=== PATIENT | male | born 1930 | race Caucasian/White ===

== ENCOUNTER → 2017-01-05 | Day surgery (SDC) | payer OTHER ==
[~2017-01-05] VITALS: Ht 167.6 cm; Wt 72.5 kg
[~2017-01-05] MED LIST: AMPICILLIN-SULBACTAM INJ 3 GM VIAL ONE; DOXA1TAB34 PO; LACTATED RINGER'S 1000 ML INJ 1,000 ML ONE; LIDOCAINE 1%/EPINEPHrine 1:100,000 SOLN 30 ML VIAL ONE; LISI2.5T3 PO; MULTTAB67 PO; PROPOFOL 200 MG/20 ML AMP IV ONE; SIMV80TA PO; SODIUM CHLORIDE 0.9% INJ 100 ML ONE; fentaNYL CITRATE 250 MCG/5 ML AMP ONE
[2017-01-05 08:22] VITALS: BP 201/86; PULSE 69; RESP 16; TEMP 97.9; O2SAT 95
[2017-01-05 08:44] LABS: HEMATOCRIT 40.6 % (39.0-51.0); MEAN CELL VOLUME 88.1 FL (80.0-100.0); MEAN CORPUSCULAR HEMOGLOBIN 29.4 PG (27.0-34.0); MEAN CORPUSCULAR HGB CONC 33.4 % (32.0-36.0); PLATELET COUNT 201 TH/MM3 (150-450); RED BLOOD COUNT 4.61 MIL/MM3 (4.50-5.90); RED CELL DISTRIBUTION WIDTH 13.6 % (11.6-17.2); REVIEW FLAG FINAL; WHITE BLOOD COUNT 5.5 TH/MM3 (4.0-11.0)
[2017-01-05] MEDS: MUPIROCIN 2% OINT 22 GM TUBE ONE ×2 (11:05→11:39)
[2017-01-05 12:23] VITALS: BP 174/72; PULSE 80; RESP 16; TEMP 98.1; O2SAT 98
--- NOTE | 2017-01-06 12:17 | EKG ---
Date Performed: 01/05/2017 Time Performed: 08:45:36 PTAGE: 86 years EKG: Sinus rhythm . Normal ECG PREVIOUS TRACING : 10/05/2012 08.44 DOCTOR: Nehemiah Celis Interpretating Date/Time 01/06/2017 12:15:17
--- NOTE | 2017-01-11 08:49 | MP ---
cc: ANGI DICK M.D. DATE OF SURGERY: 01/05/[address] Angi Dick PREOPERATIVE DIAGNOSIS 1. 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 2. 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 POSTOPERATIVE DIAGNOSIS 1. 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 2. 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 OPERATION PERFORMED 1. Excision of malignant lesion of right ear, 2 cm, CPT code 79767. 2. Complex repair of surgical defect of right ear, CPT code 19368. 3. Excision cutaneous lesion of right neck, 1.2 cm, CPT code 08163. 4. Intermediate repair of cutaneous defect right neck, CPT code 45359. INDICATIONS The indications are documented in the history and physical. DESCRIPTION OF OPERATION The patient was taken to OR #2 and placed in the supine position. Following induction of general anesthesia and intubation using a laryngeal mask apparatus, the area of these two lesions on the right ear and neck were injected with a total of 5 mL of 1% Xylocaine with epinephrine 1:100,000. The skin lesion of the neck was addressed first. This was excised along with an ellipse of approximately 1.5 cm in length and 5 mm in width. This incorporated the cutaneous lesion at a central point. This was carried down in subcutaneous fat. The skin was then undermined a distance of approximately 8 mm in all directions to allow for closure, then closed in layers using 4-0 Vicryl subcutaneous and 5-0 fast-absorbing plain gut in the skin. The ear lesion was then addressed. This was an erosive lesion involving the tragus extending from the tip and along the posterior surface down to the ear canal. This was actually a recurrence of a lesion at this site. At this time the incision was made incorporating the skin of the tragus on the facial side approximately 2.5 cm in length and then extended down into the ear canal incorporating all the area of the visible malignant lesion. This was then removed by cutting through the tragal cartilage and into the underlying fat and soft tissue. The lesion was passed off the field and oriented for histological examination. A few sites of bleeding were cauterized using the needle tip Bovie at 12 moreno. The skin of the face was then undermined for 2 cm to allow for it to extend into the ear canal to cover the defect. This was closed using 4-0 Vicryl in the subcutaneous layer and the skin was closed with interrupted sutures of both 5-0 nylon and 5-0 fast-absorbing plain gut. The wound was then dressed with mupirocin ointment and the procedure was terminated. The patient was reversed from anesthesia and taken to Recovery in good condition. There were no complications. Blood loss was 10 mL. MD JOSE Gómez/BT /8:19 AM /8:40 AM
== END | disposition home or self-care (01) ==
LOC: PHSDC 07:57
PROVIDERS: ATTEND Otolaryngology
DX: C44.212 Basal cell carcinoma of skin of right ear and external auricular canal (principal); C44.41 Basal cell carcinoma of skin of scalp and neck; I10 Essential (primary) hypertension
CPT/HCPCS: 00300; 11622; 11643; 12041; 13152; 85027; 88305; 93005; J0295; J3010; J7120; 36415

== ENCOUNTER 2017-12-31 09:38 | Inpatient (IN) | payer OTHER, MEDICARE ==
[~2017-12-31] VITALS: Ht 167.6 cm; Wt 74.4 kg
[2017-12-31] VITALS (29 sets, daily range): BP systolic 115–179; BP diastolic 52–89; PULSE 37–75; RESP 15–22; TEMP 97.7–97.9; O2SAT 98–100
[~2017-12-31 09:38] MED LIST changes: -AMPICILLIN-SULBACTAM INJ 3 GM VIAL ONE; -LACTATED RINGER'S 1000 ML INJ 1,000 ML ONE; -LIDOCAINE 1%/EPINEPHrine 1:100,000 SOLN 30 ML VIAL ONE; -LISI2.5T3 PO; -PROPOFOL 200 MG/20 ML AMP IV ONE; -SODIUM CHLORIDE 0.9% INJ 100 ML ONE; -fentaNYL CITRATE 250 MCG/5 ML AMP ONE
[2017-12-31] MEDS ORDERED: SIMV20TA PO (09:46)
[2017-12-31] MEDS ORDERED: LISI-519 PO (09:46)
[2017-12-31] MEDS ORDERED: AMLO5TAB2 PO (09:46)
[2017-12-31] MEDS ORDERED: SODIUM CHLORIDE 0.9% FLUSH 10 ML FLUSH IVF PRN (10:00)
[2017-12-31] MEDS ORDERED: SODIUM CHLOR 0.9% 1000 ML INJ 1,000 ML IV ONE (10:00)
--- NOTE | 2017-12-31 10:03 | PD ---
HPI Chief Complaint: Syncope/Near-Syncope Time Seen by Provider: 10:00 Travel History International Travel<30 days: No Contact w/Intl Traveler<30days: No Traveled to known affect area: No History of Present Illness HPI This 87-year-old male is brought by ambulance. He apparently lives alone. He has a female friend that called him this morning and noted that he seemed very weak. She had seen him yesterday afternoon when she took him to a doctor's office. He has a history of a mini stroke in the past. He was found unresponsive by paramedics. His heart rate was in the 40s and he was given atropine with some improvement. There is a friend here with him was says that he was admitted to the [facility] last March with a mini stroke. At that time he was found to have high blood pressure and was put on blood pressure medications PFSH Past Medical History Hx Anticoagulant Therapy: No Arthritis: No Asthma: No Autoimmune Disease: No Heart Rhythm Problems: No Cancer: Yes (BCCA) Cardiovascular Problems: Yes (HTN, CHOL) High Cholesterol: Yes Chemotherapy: No Chest Pain: No Congestive Heart Failure: No COPD: No Cerebrovascular Accident: No Diabetes: No Patient Takes Glucophage: No Diminished Hearing: No Endocrine: No Gastrointestinal Disorders: No GERD: No Genitourinary: Yes (BPH) Headaches: No Hepatitis: No Hiatal Hernia: No Hypertension: Yes Immune Disorder: No Kidney Stones: No Medical other: No Musculoskeletal: No Neurologic: No Psychiatric: No Reproductive: No Respiratory: No Migraines: No Radiation Therapy: No Renal Failure: No Seizures: No Sleep Apnea: No Thyroid Disease: No Ulcer: No Tetanus Vaccination: Unknown Past Surgical History Abdominal Surgery: No AICD: No Arteriovenous Shunt: No Cardiac Surgery: No Ear Surgery: No Endocrine Surgery: No Eye Surgery: No Genitourinary Surgery: No Gynecologic Surgery: No Insulin Pump: No Joint Replacement: No Neurologic Surgery: No Oral Surgery: No Pacemaker: No Thoracic Surgery: No Social History Alcohol Use: No Tobacco Use: No Substance Use: No Allergies-Medications (Allergen,Severity, Reaction): Coded Allergies: No Known Allergies (Unverified Allergy, Unknown, 12/31/17) Reported Meds & Prescriptions Reported Meds & Active Scripts Active Reported Amlodipine (Amlodipine Besylate) 5 Mg Tab 5 Mg PO DAILY Lisinopril 5 Mg Tab 5 Mg PO DAILY Simvastatin 20 Mg Tab 20 Mg PO DAILY Multiple Vitamin 1 Tab 1 Tab PO DAILY Doxazosin (Doxazosin Mesylate) 4 Mg Tab 4 Mg PO HS Review of Systems ROS Limitations: Unresponsive, Poor Historian Physical Exam Narrative GENERAL: Well-developed male. He is unresponsive on my examination. He has snoring respirations SKIN: Focused skin assessment warm/dry. HEAD: Atraumatic. Normocephalic. EYES: Pupils pinpoint ENT: No nasal bleeding or discharge. Mucous membranes pink and moist. NECK: Trachea midline. No JVD. CARDIOVASCULAR: Regular rate and rhythm. No murmur appreciated. RESPIRATORY: No accessory muscle use. Clear to auscultation. Breath sounds equal bilaterally. GASTROINTESTINAL: Abdomen soft, non-tender, nondistended. Hepatic and splenic margins not palpable. MUSCULOSKELETAL: No obvious deformities. No clubbing. No cyanosis. No edema. Neuro patient is unresponsive. He does not answer any questions. He grimaces in response to painful stimuli Babinski's upgoing bilaterally Data Data Last Documented VS Vital Signs Date Time Temp Pulse Resp B/P (MAP) Pulse Ox O2 Delivery O2 Flow Rate FiO2 12/31/17 11:56 41 16 145/67 (93) 100 Ventilator 7.00 50 12/31/17 09:47 97.7 Orders Orders Electrocardiogram (12/31/17 10:00) Prothrombin Time / Inr (Pt) (12/31/17 10:00) Act Partial Throm Time (Ptt) (12/31/17 10:00) Complete Blood Count With Diff (12/31/17 10:00) Comprehensive Metabolic Panel (12/31/17 10:00) Drug Screen, Random Urine (12/31/17 10:00) Troponin I (12/31/17 10:00) Urinalysis - C+S If Indicated (12/31/17 10:00) Ct Brain W/O Iv Contrast(Rout) (12/31/17 10:00) Chest, Single Ap (12/31/17 10:00) Ecg Monitoring (12/31/17 10:00) Iv Access Insert/Monitor (12/31/17 10:00) Oximetry (12/31/17 10:00) Sodium Chloride 0.9% Flush (Ns Flush) (12/31/17 10:00) Sodium Chlor 0.9% 1000 Ml Inj (Ns 1000 M (12/31/17 10:00) Arterial Blood Gas (Abg) (12/31/17 10:10) Etomidate Inj (Amidate Inj) (12/31/17 10:26) Succinylcholine Inj (Quelicin Inj) (12/31/17 10:26) Propofol 1000 Mg/100 Ml Inj (Diprivan 10 (12/31/17 10:45) Urinary Catheter Insert/Apply (12/31/17 10:54) Urine Culture (12/31/17 10:43) Restraints Non-Violent REJI.Q3H (12/31/17 11:02) Sputum Culture And Gram Stain (12/31/17 11:40) Mri Brain W&W/O Contrast (12/31/17 ) Eeg Study (12/31/17 ) ^ Orogastric Tube (12/31/17 11:57) Admit Order (Ed Use Only) (12/31/17 12:10) Labs Laboratory Tests Test 12/31/17 10:30 12/31/17 10:43 12/31/17 11:18 White Blood Count 6.5 TH/MM3 Red Blood Count 4.24 MIL/MM3 Hemoglobin 12.8 GM/DL Hematocrit 38.0 % Mean Corpuscular Volume 89.6 FL Mean Corpuscular Hemoglobin 30.2 PG Mean Corpuscular Hemoglobin Concent 33.7 % Red Cell Distribution Width 13.9 % Platelet Count 188 TH/MM3 Mean Platelet Volume 8.7 FL Neutrophils (%) (Auto) 67.6 % Lymphocytes (%) (Auto) 19.5 % Monocytes (%) (Auto) 9.1 % Eosinophils (%) (Auto) 3.3 % Basophils (%) (Auto) 0.5 % Neutrophils # (Auto) 4.4 TH/MM3 Lymphocytes # (Auto) 1.3 TH/MM3 Monocytes # (Auto) 0.6 TH/MM3 Eosinophils # (Auto) 0.2 TH/MM3 Basophils # (Auto) 0.0 TH/MM3 CBC Comment DIFF FINAL Differential Comment Prothrombin Time 10.7 SEC Prothromb Time International Ratio 1.1 RATIO Activated Partial Thromboplast Time 25.5 SEC Blood Urea Nitrogen 22 MG/DL Creatinine 1.20 MG/DL Random Glucose 115 MG/DL Total Protein 6.6 GM/DL Albumin 3.2 GM/DL Calcium Level 8.0 MG/DL Alkaline Phosphatase 60 U/L Aspartate Amino Transf (AST/SGOT) 22 U/L Alanine Aminotransferase (ALT/SGPT) 22 U/L Total Bilirubin 0.5 MG/DL Sodium Level 142 MEQ/L Potassium Level 4.8 MEQ/L Chloride Level 110 MEQ/L Carbon Dioxide Level 25.9 MEQ/L Anion Gap 6 MEQ/L Estimat Glomerular Filtration Rate 57 ML/MIN Troponin I LESS THAN 0.02 NG/ML Urine Collection Type CATH Urine Color YELLOW Urine Turbidity SL CLOUDY Urine pH 6.0 Urine Specific [place] 1.020 Urine Protein NEG mg/dL Urine Glucose (UA) NEG mg/dL Urine Ketones NEG mg/dL Urine Occult Blood LARGE Urine Nitrite NEG Urine Bilirubin NEG Urine Urobilinogen 0.2 MG/DL Urine Leukocyte Esterase NEG Urine RBC INNUM /hpf Urine WBC 9-14 /hpf Urine Squamous Epithelial Cells 0-5 /hpf Urine Renal Epithelial Cells > 8 /hpf Microscopic Urinalysis Comment CATH-CULTURE IND Urine Collection Time 10:43 Urine Opiates Screen NEG Urine Barbiturates Screen NEG Urine Amphetamines Screen NEG Urine Benzodiazepines Screen NEG Urine Cocaine Screen NEG Urine Cannabinoids Screen NEG Blood Gas Puncture Site RT RADIAL Blood Gas Patient Temperature 98.6 Blood Gas HCO3 25 mmol/L Blood Gas Base Excess 0.6 mmol/L Blood Gas Oxygen Saturation 97 % Arterial Blood pH 7.43 Arterial Blood Partial Pressure CO2 38 mmHG Arterial Blood Partial Pressure O2 136 mmHG Arterial Blood Oxygen Content 16.9 Vol % Arterial Blood Carboxyhemoglobin 1.4 % Arterial Blood Methemoglobin 1.4 % Blood Gas Hemoglobin 12.3 G/DL Oxygen Delivery Device VENTILATOR Blood Gas Ventilator Setting A/C 500/16/+5 Blood Gas Inspired Oxygen 40 % [facility] Medical Decision Making Medical Screen Exam Complete: Yes Emergency Medical Condition: Yes Medical Record Reviewed: Yes Differential Diagnosis Differential includes overdose, CVA, hypoglycemia Narrative Course Patient has been unresponsive and does not respond to painful stimuli. It was felt he needed airway protection so endotracheal intubation has been performed. He was given etomidate and succinylcholine for sedation and tube was placed. After tube placement there are good bilateral breath sounds. Chest x-ray shows good position of the tube. CT scan of the brain does not reveal an etiology for his home. Drug screen is negative. He will be admitted to the intensive care unit for further evaluation. Procedures Procedure Narrative Patient was given 20 mg of etomidate choline intravenously. He was well sedated. He is direct laryngoscopy and an endotracheal tube was inserted into the trachea. TUBE position was confirmed by CO2 detector, good bilateral breath sounds and chest x-ray Diagnosis Primary Impression: Altered mental status Admitting Information Admitting Physician Requests: Admit Forest Fajardo MD Dec 31, 2017 10:03
[2017-12-31] MEDS ORDERED: ETOMIDATE 40 MG/20 ML VIAL ONE (10:26)
[2017-12-31] MEDS ORDERED: SUCCINYLCHOLINE CHLORIDE 200 MG/10 ML VIAL ONE (10:26)
[2017-12-31] MEDS: PROPOFOL 1000 MG/100 ML INJ 100 ML IV PRN (10:48)
[2017-12-31 10:51] LABS: AUTOMATED NEUTROPHIL # 4.4 TH/MM3 (1.8-7.7); BASOPHIL % 0.5 % (0.0-2.0); EOSINOPHIL # 0.2 TH/MM3 (0-0.4); EOSINOPHIL % 3.3 % (0.0-4.0); HEMOGLOBIN 12.8 GM/DL (13.0-17.0); LYMPH % 19.5 % (9.0-44.0); LYMPHOCYTE # 1.3 TH/MM3 (1.0-4.8); MEAN CELL VOLUME 89.6 FL (80.0-100.0); MEAN CORPUSCULAR HEMOGLOBIN 30.2 PG (27.0-34.0); MEAN CORPUSCULAR HGB CONC 33.7 % (32.0-36.0); MEAN PLATELET VOLUME 8.7 FL (7.0-11.0); MONO % 9.1 % (0.0-8.0); MONOCYTE # 0.6 TH/MM3 (0-0.9); NEUT % 67.6 % (16.0-70.0); PLATELET COUNT 188 TH/MM3 (150-450); RED BLOOD COUNT 4.24 MIL/MM3 (4.50-5.90); RED CELL DISTRIBUTION WIDTH 13.9 % (11.6-17.2); WHITE BLOOD COUNT 6.5 TH/MM3 (4.0-11.0)
[2017-12-31 10:52] LABS: BILIRUBIN, URINE NEG (NEG); BLOOD, URINE LARGE (NEG); GLUCOSE,URINE NEG (NEG); KETONE, URINE NEG (NEG); NITRITE,URINE NEG (NEG); URINE COLOR YELLOW (YELLW/STRAW); URINE LEUKOCYTE ESTERASE NEG (NEG)
--- NOTE | 2017-12-31 10:56 | RADRPT ---
EXAM DATE/TIME: 12/31/2017 10:14 [facility] COMPARISON: No previous studies available for comparison. INDICATIONS : Altered mental status. Weakness. Evaluate for cerebrovascular accident. RADIATION DOSE: 61.92 CTDIvol (mGy) MEDICAL HISTORY : Cerebrovascular disease. Hypertension. SURGICAL HISTORY : None. ENCOUNTER: Initial ACUITY: 1 day PAIN SCALE: Non-responsive LOCATION: cranial TECHNIQUE: Multiple contiguous axial images were obtained of the head. Using automated exposure control and adj ustment of the mA and/or kV according to patient size, radiation dose was kept as low as reasonably a chievable to obtain optimal diagnostic quality images. DICOM format image data is available electro nically for review and comparison. FINDINGS: CEREBRUM: The ventricles are normal for age. No evidence of midline shift, mass lesion, hemorrhage or acute in farction. No extra-axial fluid collections are seen. POSTERIOR FOSSA: The cerebellum and brainstem are intact. The 4th ventricle is midline. The cerebellopontine angle i s unremarkable. EXTRACRANIAL: The visualized portion of the orbits is intact. Mild mucosal thickening in the visualized portion of the dependent maxillary sinuses. SKULL: The calvaria is intact. No evidence of skull fracture. CONCLUSION: 1. Age-appropriate atrophy. No acute findings in the brain. 2. Mild bilateral maxillary sinus disease. Pablo Mcclure MD on December 31, 2017 at 10:53 Board Certified Radiologist. This report was verified electronically.
[2017-12-31 11:00] LABS: RBC, URINE INNUM /hpf (0-3)
[2017-12-31 11:01] LABS: RENAL EPITHELIAL CELLS > 8 /hpf; SQUAMOUS EPITHELIAL CELL URINE 0-5 /hpf (0-5)
[2017-12-31 11:04] LABS: INTERNATIONAL NORMALIZED RATIO 1.1 RATIO; PROTHROMBIN TIME - PATIENT 10.7 SEC (9.8-11.6)
[2017-12-31 11:08] LABS: CHLORIDE 110 MEQ/L (98-107); SODIUM (NA) 142 MEQ/L (136-145)
[2017-12-31 11:12] LABS: ALBUMIN 3.2 GM/DL (3.4-5.0); BICARBONATE 25.9 MEQ/L (21.0-32.0); BLOOD UREA NITROGEN 22 MG/DL (7-18); GLUCOSE,RANDOM 115 MG/DL (74-106)
[2017-12-31 11:14] LABS: ALT (GPT) 22 U/L (12-78)
[2017-12-31 11:15] LABS: AST (GOT) 22 U/L (15-37); GLOMERULAR FILTRATION RATE 57 ML/MIN (>89)
[2017-12-31 11:16] LABS: TOTAL BILIRUBIN ADULT 0.5 MG/DL (0.2-1.0); TOTAL PROTEIN 6.6 GM/DL (6.4-8.2)
[2017-12-31 11:17] LABS: ALKALINE PHOSPHATASE 60 U/L (45-117)
[2017-12-31 11:20] LABS: TROPONIN I LESS THAN 0.02 NG/ML (0.02-0.05)
--- NOTE | 2017-12-31 11:33 | RADRPT ---
EXAM DATE/TIME: 12/31/2017 11:10 [facility] COMPARISON: No previous studies available for comparison. INDICATIONS : Post intubation. MEDICAL HISTORY : Cerebrovascular disease. Hypertension. SURGICAL HISTORY : None. ENCOUNTER: Initial ACUITY: 1 day PAIN SCORE: Non-responsive. LOCATION: chest FINDINGS: Endotracheal tube tip is 2.8 cm above the naima. The lungs are symmetrically aerated and clear. Jeovanny th hemidiaphragms are well delineated. The heart is normal size. CONCLUSION: ET tube in good position. The lungs are clear. Pablo Mcclure MD on December 31, 2017 at 11:30 Board Certified Radiologist. This report was verified electronically.
[2017-12-31] MEDS ORDERED: SODIUM CHLOR 0.9% 1000 ML INJ 1,000 ML IV SCH (12:15)
[2017-12-31] MEDS ORDERED: MISCELLANEOUS NURSING INFORMATION XX SCH (12:15)
[2017-12-31] MEDS ORDERED: MAGNESIUM HYDROXIDE SUSP 30 ML CUP PO PRN (12:15)
[2017-12-31] MEDS ORDERED: ACETAMINOPHEN 325 MG TAB PO PRN (12:15)
[2017-12-31] MEDS ORDERED: ONDANSETRON HCL 4 MG/2 ML VIAL IV PUSH PRN (12:15)
[2017-12-31] MEDS ORDERED: RESP: ALBUTEROL 2.5 MG/IPRATROPIUM 0.5 MG NEB (PRN) INH (12:15)
[2017-12-31] MEDS ORDERED: CHLORHEXIDINE GLUCONATE 2 % 1 PACK (2 CLOTHS) TOP PRN (12:15)
[2017-12-31] MEDS ORDERED: LACTULOSE SYRUP 20 GM/30 ML CUP PO PRN (12:15)
[2017-12-31] MEDS ORDERED: SENNOSIDES 8.6 MG TAB PO PRN (12:15)
[2017-12-31] MEDS ORDERED: BISACODYL 10 MG SUPP RECTAL PRN (12:15)
[2017-12-31] MEDS ORDERED: hydrALAZINE HCL 20 MG/ML VIAL IV PUSH PRN (12:30)
[2017-12-31] MEDS ORDERED: ATROPINE SULFATE 1 MG/10 ML SYRINGE IV PUSH PRN (12:30)
[2017-12-31] MEDS ORDERED: PROPOFOL 1000 MG/100 ML INJ 100 ML IV PRN (13:00)
[2017-12-31] MEDS: ENOXAPARIN SODIUM 40 MG/0.4 ML SYRINGE SQ SCH (13:33)
[2017-12-31] MEDS: SODIUM CHLOR 0.9% 1000 ML INJ 1,000 ML IV SCH (13:33)
[2017-12-31] MEDS: cefTRIAXone INJ 1,000 MG in SODIUM CHLORIDE 0.9% INJ 100 ML IV SCH (13:34)
--- NOTE | 2017-12-31 13:46 | MB ---
cc: Mejia Arteaga MD DATE: 12/31/2017 HISTORY OF PRESENT ILLNESS: An 87-year-old man with a history of hypertension, hypercholesterolemia, basal cell skin cancer. No melanoma. He had what his shipping clerk says was a possible mini stroke or it sounds like he actually passed out briefly in February of last year. He sees Dr. Johnston. He recently was put on aspirin just a few days ago. He takes some blood pressure medications. Otherwise, evidently, has been very healthy. He was a little depressed yesterday because one of his friends was going to be taken off of a ventilator, and he seemed to be doing fine about 4 p.m. when his shipping clerk talked to him on the phone. Then, this morning, she called and he said he felt a little dizzy. She went over and he was lying on the bed, could not arouse him, called 911. The manager labor delivery came. He evidently said a few words to them, but was unresponsive here and wound up getting intubated. REVIEW OF SYSTEMS: She says there has been no recent illness. He was doing fine. No history of diabetes, PR, stent, angioplasty, AFib, Coumadin, renal, hepatic or pulmonary disease, thyroid disease, lupus, ulcer, cancer or seizure. SOCIAL HISTORY: Nonsmoker, occasional drinker, lives alone. FAMILY HISTORY: Negative for cancer, seizure, stroke. Positive for PR in his son. MEDICATIONS: He is just on amlodipine, lisinopril, and a baby aspirin for the last several days. Also, simvastatin, a multivitamin, doxazosin. ALLERGIES: NO KNOWN DRUG ALLERGIES. PHYSICAL EXAMINATION: VITAL SIGNS: His heart rate has been in the 30s-40s. He has seen a boring mill operator for metal in the past. His friend is not sure who. Afebrile, 41, 16, 115/59, initially 167/84. NECK: There were no carotid bruits. HEART: Regular rhythm. I did not detect a murmur. NEUROLOGIC: The pupils are equal. He is sedated on Diprivan. He is intubated. He has got bilateral upgoing toes. The DTRs are absent throughout. He seems to move that left leg a little bit spontaneously, more so than the right one. Doll's eyes appear normal. No ankle clonus. LABORATORY DATA: CBC is normal. Urine drug screen normal, except for 9-14 white cells. Coags normal. Basic metabolic profile was essentially normal. Glucose 115. LFTs, troponin normal. Albumin 3.2. CAT scan of the brain negative. Chest x-ray, lungs are clear. He is in sinus aidan on the tele. ABG after intubation 7.43, 38, 136. IMPRESSION: Change in mental status. With the bilateral upgoing toes, I would worry about a brainstem or infarct or showering of infarcts to both hemispheres. We will check an MRI of the brain and EEG. Some additional blood work. We will know more after that. There is some slight asymmetry where he is moving the left leg a little bit better than the right, but both the toes are upgoing and quite a bit so, which is concerning. MD CHRISS Grant/NAN , 01:28 PM , 01:45 PM
[2017-12-31] MEDS ORDERED: GADODIAMIDE PF 287 MG/ML 5 ML VIAL (for RAD MRI) IVCONTRAST ONE (15:09)
--- NOTE | 2017-12-31 15:51 | RADRPT ---
EXAM DATE/TIME: 12/31/2017 14:55 [facility] COMPARISON: No previous studies available for comparison. INDICATIONS : CVA. MEDICAL HISTORY : Hypertension. SURGICAL HISTORY : Skin cancer removed from nose. ENCOUNTER: Initial ACUITY: 1 day PAIN SCORE: 10/10 LOCATION: Bilateral cranial Please note a normal MRA of the brain does not entirely exclude the possibility of a small aneurysm, nor the possibility of distal intracranial vessel disease. TECHNIQUE: 3D time of flight MRA was performed. Source images, multiplanar STS MIP, and 3D volume MIP reconstru ctions were reviewed. FINDINGS: There is excellent visualization of the major intracranial arteries out to the second-order branch ve ssels. There is no evidence for aneurysm, vessel truncation or stenosis, and no evidence for vascula r malformation. The right A1 segment is narrower than the left. Flow is seen in the anterior commun icating artery. No flow seen in the PCOM. CONCLUSION: No evidence of vessel truncation or aneurysm. Pablo Mcclure MD on December 31, 2017 at 15:47 Board Certified Radiologist. This report was verified electronically.
--- NOTE | 2017-12-31 16:01 | RADRPT ---
EXAM DATE/TIME: 12/31/2017 14:55 [facility] COMPARISON: CT BRAIN W/O CONTRAST, December 31, 2017, 10:14. CHEST SINGLE AP, December 31, 2017, 11:10. INDICATIONS : CVA. CONTRAST: 14 cc Omniscan (gadodiamide) IV MEDICAL HISTORY : Hypertension. SURGICAL HISTORY : Skin cancer sx. ENCOUNTER: Initial ACUITY: 1 day PAIN SCORE: 10/10 LOCATION: Bilateral head TECHNIQUE: Multiplanar, multisequence MRI of the brain was performed both prior to and following the administrat ion of paramagnetic contrast. FINDINGS: CEREBRUM: The ventricles and sulci are normal for age. There are a few small scattered areas of T2 prolongatio n in the supratentorial white matter in the left posterior parietal region without associated T1 abno rmality seen without effusion. In the bilateral medial thalamus, there is some mild restricted diffu wing which is confirmed on the ADC map parametric images suggesting possible early infarction. No ev idence of acute blood products. There is a small lacunar infarct measuring 1 x 3 mm in the medial le ft thalamus. The pituitary is normal in appearance. POSTERIOR FOSSA: The cerebellum and brainstem are intact. The 4th ventricle is midline. The cerebellopontine angle is unremarkable. The cerebellar tonsils are normal in position. EXTRACRANIAL: The visualized portions of the orbits and paranasal sinuses are unremarkable. POST-CONTRAST: There is a solitary mildly prominent vessel coursing through the right frontal white matter to the an gle of the frontal horn of the suggesting possible venous angioma. No surrounding edema. No associa lencho parenchymal or dural enhancement. No evidence of blood-brain barrier breakdown. CONCLUSION: 1. Some very minimal restricted diffusion symmetric in the bilateral medial thalami. This may repres ent early infarction. Recommend serial imaging to evaluate for evolution. 2. Tiny lacunar infarct in the medial left thalamus. 3. 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 The Pablo Mcclure MD on December 31, 2017 at 15:53 Board Certified Radiologist. This report was verified electronically.
--- NOTE | 2017-12-31 16:02 | EKG ---
Date Performed: 12/31/2017 Time Performed: 10:11:34 PTAGE: 87 years EKG: SINUS BRADYCARDIA WITH FIRST DEGREE AV BLOCK ABNORMAL ECG PREVIOUS TRACING : 01/05/2017 08.45 No significant change from previous tracing noted. DOCTOR: Devin Dover Interpretating Date/Time 12/31/2017 16:02:07
--- NOTE | 2017-12-31 16:56 | ECHRPT ---
Indication: CONCLUSIONS The left ventricular systolic function is normal with an estimated ejection fraction in the range of 55-60%. Normal left ventricular size. Wall thickness is measured at the upper limits of normal. No regional wall motion abnormalities are present. Diffuse calcification of the aortic valve. Trace aortic valve regurgitation. There is trace tricuspid valve regurgitation. The estimated pulmonary arterial pressure is 29.5 mmHg. BP: 126 / 61 HR: 82 Rhythm: Sinus MEASUREMENTS (Male / Female) Normal Values Technical Quality:Poor 2D ECHO LV Diastolic Diameter PLAX 4.0 cm 4.2 - 5.9 / 3.9 - 5.3 cm LV Systolic Diameter PLAX 3.0 cm IVS Diastolic Thickness 1.2 cm 0.6 - 1.0 / 0.6 - 0.9 cm LVPW Diastolic Thickness 1.2 cm 0.6 - 1.0 / 0.6 - 0.9 cm LV Relative Wall Thickness 0.6 LVOT Diameter 1.5 cm LA Systolic Diameter LX 3.2 cm 3.0 - 4.0 / 2.7 - 3.8 cm LV Ejection Fraction MOD 4C 61.8 % LV Ejection Fraction 4C AL 63.1 % M-MODE Aortic Root Diameter MM 2.9 cm AV Cusp Separation MM 1.1 cm DOPPLER AV Peak Velocity 215.0 cm/s AV Peak Gradient 18.5 mmHg AV Mean Gradient 9.0 mmHg AV Velocity Time Integral 52.0 cm AI Peak Velocity 357.0 cm/s AI Peak Gradient 51.0 mmHg AI Pressure Half Time 1372.0 ms LVOT Peak Velocity 118.0 cm/s LVOT Peak Gradient 5.6 mmHg LVOT Velocity Time Integral 31.6 cm AV Area Cont Eq vti 1.1 cm AV Area Cont Eq pk 1.0 cm MV Area PHT 2.8 cm Mitral E Point Velocity 83.9 cm/s Mitral A Point Velocity 97.7 cm/s Mitral E to A Ratio 0.9 LV E' Lateral Velocity 8.9 cm/s Mitral E to LV E' Lateral Ratio 9.5 LV E' Septal Velocity 6.2 cm/s Mitral E to LV E' Septal Ratio 13.4 TR Peak Velocity 221.0 cm/s TR Peak Gradient 19.5 mmHg Right Atrial Pressure 10.0 mmHg Pulmonary Artery Systolic Pressu 29.5 mmHg Right Ventricular Systolic Press 29.5 mmHg PV Peak Velocity 88.2 cm/s PV Peak Gradient 3.1 mmHg FINDINGS LEFT VENTRICLE The left ventricular systolic function is normal with an estimated ejection fraction in the range of 55-60%. Normal left ventricular size. Wall thickness is measured at the upper limits of normal. No regional wall motion abnormalities are present. RIGHT VENTRICLE Normal right ventricular size and systolic function. LEFT ATRIUM The left atrial size is normal. RIGHT ATRIUM The right atrial size is normal. ATRIAL SEPTUM Normal atrial septal thickness without atrial level shunting by limited color doppler interrogation. AORTA The aortic root and proximal ascending aorta are normal in size on limited imaging. MITRAL VALVE Structurally normal mitral valve. No mitral valve stenosis or regurgitation. AORTIC VALVE Trileaflet aortic valve. Diffuse calcification of the aortic valve. Trace aortic valve regurgitation. TRICUSPID VALVE Structurally normal tricuspid valve. There is trace tricuspid valve regurgitation. The estimated pulmonary arterial pressure is 29.5 mmHg. PULMONARY VALVE No pulmonary valve regurgitation or stenosis. VESSELS The inferior vena cava is normal in size. PERICARDIUM No pericardial effusion. Nehemiah Celis MD, FACC (Electronically Signed) Final Date:31 December 2017 16:55
--- NOTE | 2017-12-31 18:28 | HHI.HP ---
[facility] Service Critical Care Medicine Primary Care Physician Brian Spence MD Admission Diagnosis ALTERED LEVEL OF CONSCIOUSNESS Diagnosis: (1) Ischemic cerebrovascular accident (CVA) Diagnosis: Principal (2) Bradycardia Diagnosis: Principal (3) Encephalopathy acute Diagnosis: Principal Chief Complaint: Complained of lightheadedness and some dizziness prior to becoming obtunded. Travel History International Travel<30 Days: No Contact w/Intl Traveler <30 Da: No Traveled to Known Affected Are: No History of Present Illness This elderly gentleman presented to the emergency department by ambulance when he became lightheaded at his home. A social work lecturer asked him to lay down on his bed when she was on the telephone with him. He was quite somnolent when the ambulance arrived. He appeared to intermittently be able to respond to commands but eventually deteriorated to the point where he required intubation for airway protection. He had a small stroke about a year ago and he does see a neurologist. He is on antiplatelet therapy in the form of aspirin. The sustained sinus bradycardia in the 40s apparently is a long-term feature of his vital signs and he has not been plagued by hypotensive episodes. On arrival he was moderately hypertensive. CAT scan obtained of the head in the emergency department was normal. MRI of the brain demonstrates no acute occlusions. Review of Systems ROS By history no chest pain or shortness of breath. He did expressed to his social work lecturer on the phone that he had lightheadedness and some dizziness. There was no headache. No seizures. Past Family Social History Allergies: Coded Allergies: No Known Allergies (Unverified Allergy, Unknown, 12/31/17) Past Medical History Past Medical History Hx Anticoagulant Therapy: No Cancer: Yes (BCCA) Cardiovascular Problems: Yes (HTN, CHOL) High Cholesterol: Yes GERD: No Genitourinary: Yes (BPH) Hypertension: Yes Migraines: No Tetanus Vaccination: Unknown Past Surgical History None Social History Alcohol Use: No Tobacco Use: No Substance Use: No Allergies-Medications Allergies-Medications (Allergen,Severity, Reaction): Coded Allergies: No Known Allergies (Unverified Allergy, Unknown, 12/31/17) Reported Meds & Prescriptions Reported Meds & Active Scripts Active Reported Amlodipine (Amlodipine Besylate) 5 Mg Tab 5 Mg PO DAILY Lisinopril 5 Mg Tab 5 Mg PO DAILY Simvastatin 20 Mg Tab 20 Mg PO DAILY Multiple Vitamin 1 Tab 1 Tab PO DAILY Doxazosin (Doxazosin Mesylate) 4 Mg Tab 4 Mg PO HS Physical Exam Vital Signs Vital Signs Date Time Temp Pulse Resp B/P (MAP) Pulse Ox O2 Delivery O2 Flow Rate FiO2 12/31/17 16:05 100 35 12/31/17 14:15 100 100 12/31/17 13:50 43 16 126/61 (82) 100 Ventilator 2.00 12/31/17 13:30 37 16 144/73 (96) 100 Ventilator 2.00 40 12/31/17 13:26 100 35 12/31/17 13:01 Ventilator 2.00 40 12/31/17 13:01 38 16 115/59 (77) 100 Ventilator 2.00 40 12/31/17 12:36 40 16 117/58 (77) 100 Ventilator 2.00 40 12/31/17 12:14 42 16 120/64 (82) 100 Ventilator 2.00 40 12/31/17 11:56 41 16 145/67 (93) 100 Ventilator 2.00 40 12/31/17 11:40 42 16 123/62 (82) 99 2.00 40 12/31/17 11:23 44 16 179/89 (119) 100 Ventilator 2.00 40 12/31/17 11:02 44 16 151/65 (93) 99 Ventilator 2.00 40 12/31/17 11:02 Ventilator 12/31/17 10:38 99 40 12/31/17 10:32 40 12/31/17 10:07 16 98 Room Air 12/31/17 09:50 16 98 Room Air 12/31/17 09:47 97.7 75 16 167/84 (111) 98 Physical Exam General: Intubated and mildly sedated for vent synchrony Head: Normal and atraumatic Neck: Some chronic stiffness orally intubated. Lungs: Clear bilaterally without adventitious sounds good bilateral air movement Heart: Bradycardic rhythm at 48, normal S1-S2, no murmur or rub, no JVD Abdomen soft nondistended nontender no guarding Extremities: Warm, well-perfused. There are minor chronic abrasions with healing skin on his left carbajal. Neuro: Pupils 3 mm and react to light. Withdraws both legs to stimulation. Deep tendon reflexes patellar are 2+ bilaterally Achilles 2+ bilaterally toes appear neutral to plantar stimulation great toe goes up then all toes go down bilaterally. He appears to move both arms to moderate stimulation. Unable to check cranial nerves. Laboratory Laboratory Tests Test 12/31/17 10:30 12/31/17 10:43 12/31/17 11:18 12/31/17 13:30 White Blood Count 6.5 Red Blood Count 4.24 Hemoglobin 12.8 Hematocrit 38.0 Mean Corpuscular Volume 89.6 Mean Corpuscular Hemoglobin 30.2 Mean Corpuscular Hemoglobin Concent 33.7 Red Cell Distribution Width 13.9 Platelet Count 188 Mean Platelet Volume 8.7 Neutrophils (%) (Auto) 67.6 Lymphocytes (%) (Auto) 19.5 Monocytes (%) (Auto) 9.1 Eosinophils (%) (Auto) 3.3 Basophils (%) (Auto) 0.5 Neutrophils # (Auto) 4.4 Lymphocytes # (Auto) 1.3 Monocytes # (Auto) 0.6 Eosinophils # (Auto) 0.2 Basophils # (Auto) 0.0 CBC Comment DIFF FINAL Differential Comment Erythrocyte Sedimentation Rate 4 Prothrombin Time 10.7 Prothromb Time International Ratio 1.1 Activated Partial Thromboplast Time 25.5 Blood Urea Nitrogen 22 Creatinine 1.20 Random Glucose 115 Total Protein 6.6 Albumin 3.2 Calcium Level 8.0 Alkaline Phosphatase 60 Aspartate Amino Transf (AST/SGOT) 22 Alanine Aminotransferase (ALT/SGPT) 22 Total Bilirubin 0.5 Sodium Level 142 Potassium Level 4.8 Chloride Level 110 Carbon Dioxide Level 25.9 Anion Gap 6 Estimat Glomerular Filtration Rate 57 Troponin I LESS THAN 0.02 Urine Collection Type CATH Urine Color YELLOW Urine Turbidity SL CLOUDY Urine pH 6.0 Urine Specific King 1.020 Urine Protein NEG Urine Glucose (UA) NEG Urine Ketones NEG Urine Occult Blood LARGE Urine Nitrite NEG Urine Bilirubin NEG Urine Urobilinogen 0.2 Urine Leukocyte Esterase NEG Urine RBC INNUM Urine WBC 9-14 Urine Squamous Epithelial Cells 0-5 Urine Renal Epithelial Cells > 8 Microscopic Urinalysis Comment CATH-CULTURE IND Urine Collection Time 10:43 Urine Opiates Screen NEG Urine Barbiturates Screen NEG Urine Amphetamines Screen NEG Urine Benzodiazepines Screen NEG Urine Cocaine Screen NEG Urine Cannabinoids Screen NEG Blood Gas Puncture Site RT RADIAL Blood Gas Patient Temperature 98.6 Blood Gas HCO3 25 Blood Gas Base Excess 0.6 Blood Gas Oxygen Saturation 97 Arterial Blood pH 7.43 Arterial Blood Partial Pressure CO2 38 Arterial Blood Partial Pressure O2 136 Arterial Blood Oxygen Content 16.9 Arterial Blood Carboxyhemoglobin 1.4 Arterial Blood Methemoglobin 1.4 Blood Gas Hemoglobin 12.3 Oxygen Delivery Device VENTILATOR Blood Gas Ventilator Setting A/C 500/16/+5 Blood Gas Inspired Oxygen 40 Ammonia 31 Test 12/31/17 13:53 Thyroid Stimulating Hormone 3rd Gen 2.360 Date/Time Source Procedure Growth Status 12/31/17 11:38 Sputum Oral Tracheal Aspirate Gram Stain Pending Received 12/31/17 11:38 Sputum Oral Tracheal Aspirate Sputum Culture Pending Received 12/31/17 10:43 Urine Catheterized Urine Urine Culture Pending Received Result Diagram: 12/31/17 1030 12/31/17 1030 Caprini VTE Risk Assessment Caprini VTE Risk Assessment: Mod/High Risk (score >= 2) Caprini Risk Assessment Model Point Value = 1 Point Value = 2 Point Value = 3 Point Value = 5 Age 41-60 Minor surgery BMI > 25 kg/m2 Swollen legs Varicose veins or History of unexplained or recurrent spontaneous Oral contraceptives or hormone replacement Sepsis (< 1 month) Serious lung disease, including pneumonia (< 1 month) Abnormal pulmonary function Acute myocardial infarction Congestive heart failure (< 1 month) History of inflammatory bowel disease Medical patient at bed rest Age 61-74 Arthroscopic surgery Major open surgery (> 45 min) Laparoscopic surgery (> 45 min) Malignancy Confined to bed (> 72 hours) Immobilizing plaster cast Central venous access Age >= 75 History of VTE Family history of VTE Factor V Leiden Prothrombin [id number] Lupus anticoagulant Anticardiolipin antibodies Elevated serum homocysteine Heparin-induced thrombocytopenia Other congenital or acquired thrombophilia Stroke (< 1 month) Elective arthroplasty Hip, pelvis, or leg fracture Acute spinal cord injury (< 1 month) Prophylaxis Regimen Total Risk Factor Score Risk Level Prophylaxis Regimen 0-1 Low Early ambulation 2 Moderate Order ONE of the following: *Sequential Compression Device (SCD) *Heparin 5000 units SQ BID 3-4 Higher Order ONE of the following medications: *Heparin 5000 units SQ TID *Enoxaparin/Lovenox 40 mg SQ daily (WT < 150 kg, CrCl > 30 mL/min) *Enoxaparin/Lovenox 30 mg SQ daily (WT < 150 kg, CrCl > 10-29 mL/min) *Enoxaparin/Lovenox 30 mg SQ BID (WT < 150 kg, CrCl > 30 mL/min) AND/OR *Sequential Compression Device (SCD) 5 or more Highest Order ONE of the following medications: *Heparin 5000 units SQ TID (Preferred with Epidurals) *Enoxaparin/Lovenox 40 mg SQ daily (WT < 150 kg, CrCl > 30 mL/min) *Enoxaparin/Lovenox 30 mg SQ daily (WT < 150 kg, CrCl > 10-29 mL/min) *Enoxaparin/Lovenox 30 mg SQ BID (WT < 150 kg, CrCl > 30 mL/min) AND *Sequential Compression Device (SCD) Assessment and Plan Problem List: (1) Ischemic cerebrovascular accident (CVA) ICD Code: I63.9 - Cerebral infarction, unspecified Status: Acute (2) Encephalopathy acute ICD Code: G93.40 - Encephalopathy, unspecified Status: Acute (3) Bradycardia ICD Code: R00.1 - Bradycardia, unspecified Status: Chronic Assessment and Plan Plan: 1. Mechanical ventilation PRBC mode. 2. As needed bronchodilators. 3. Neurochecks. 4. Antiplatelet therapy and/or anticoagulation per neurology service. 5. Hold amlodipine for now. 6. Allow moderate hypertension if acceptable to neurology service. 7. Pepcid for GI ulcer prophylaxis 8. SCDs 9. MRI of brain 10. Cardiac echo 11. Continuous telemetry looking specifically for tachyarrhythmia 12. Dopamine if necessary to avoid hypotension Overall impression: This man is critically ill having sustained a profound neurologic event earlier today. He became obtunded to the point that he required intubation and mechanical ventilation because of an inability to protect his airway. We will stick with ultrashort acting sedation so than intermittent neuro evaluation can be accomplished during sedation vacations. Critical care time 45 minutes Orlando Nash MD Dec 31, 2017 18:28
[2017-12-31 19:13] LABS: FREE T4 0.9 NG/DL (0.76-1.46)
[2017-12-31] MEDS: ASPIRIN 300 MG SUPP RECTAL SCH (19:51)
[2017-12-31] MEDS: CHLORHEXIDINE 0.12% (ORAL KIT) 15 ML CUP MT SCH (19:51)
[2017-12-31] MEDS ORDERED: FAMOTIDINE 20 MG/2 ML VIAL IV PUSH SCH (21:00)
[2017-12-31] MEDS: DOCUSATE SODIUM 50 MG/SENNA 8.6 MG TAB PO SCH (21:18)
[2017-12-31] MEDS: DOXAZOSIN MESYLATE 4 MG TAB PO SCH (21:18)
[2018-01-01] VITALS (31 sets, daily range): BP systolic 129–176; BP diastolic 53–78; PULSE 52–96; RESP 14–26; TEMP 98.1–101.2; O2SAT 92–100
[2018-01-01] MEDS: PROPOFOL 1000 MG/100 ML INJ 100 ML IV PRN (02:54)
[2018-01-01] MEDS: SODIUM CHLOR 0.9% 1000 ML INJ 1,000 ML IV SCH ×2 (02:55→17:41)
[2018-01-01] MEDS: CHLORHEXIDINE GLUCONATE 2 % 1 PACK (2 CLOTHS) TOP SCH (04:00)
[2018-01-01 05:13] LABS: AUTOMATED NEUTROPHIL # 8.8 TH/MM3 (1.8-7.7); BASOPHIL # 0.1 TH/MM3 (0-0.2); EOSINOPHIL % 0.4 % (0.0-4.0); HEMATOCRIT 36.2 % (39.0-51.0); HEMOGLOBIN 11.8 GM/DL (13.0-17.0); LYMPHOCYTE # 0.7 TH/MM3 (1.0-4.8); MEAN CELL VOLUME 88.8 FL (80.0-100.0); MEAN CORPUSCULAR HGB CONC 32.7 % (32.0-36.0); MEAN PLATELET VOLUME 8.7 FL (7.0-11.0); MONO % 8.1 % (0.0-8.0); MONOCYTE # 0.8 TH/MM3 (0-0.9); NEUT % 83.5 % (16.0-70.0); PLATELET COUNT 177 TH/MM3 (150-450); RED BLOOD COUNT 4.08 MIL/MM3 (4.50-5.90); RED CELL DISTRIBUTION WIDTH 13.2 % (11.6-17.2); WHITE BLOOD COUNT 10.4 TH/MM3 (4.0-11.0)
[2018-01-01 05:30] LABS: ALT (GPT) 20 U/L (12-78); AST (GOT) 23 U/L (15-37); BICARBONATE 23.5 MEQ/L (21.0-32.0); BLOOD UREA NITROGEN 21 MG/DL (7-18); CALCIUM 7.9 MG/DL (8.5-10.1); CHLORIDE 110 MEQ/L (98-107); GLOMERULAR FILTRATION RATE 57 ML/MIN (>89); GLUCOSE,RANDOM 131 MG/DL (74-106); PHOSPHORUS 3.2 MG/DL (2.5-4.9); SODIUM (NA) 142 MEQ/L (136-145)
[2018-01-01 05:32] LABS: TOTAL BILIRUBIN ADULT 0.7 MG/DL (0.2-1.0); TOTAL PROTEIN 6.1 GM/DL (6.4-8.2)
[2018-01-01 05:33] LABS: ALKALINE PHOSPHATASE 60 U/L (45-117)
--- NOTE | 2018-01-01 06:12 | HHI.CCPN ---
Subjective Remarks/Hospital Course ALTERED LEVEL OF CONSCIOUSNESS Diagnosis: (1) Ischemic cerebrovascular accident (CVA) Diagnosis: Principal (2) Bradycardia Diagnosis: Principal (3) Encephalopathy acute Diagnosis: Principal Chief Complaint: Complained of lightheadedness and some dizziness prior to becoming obtunded. This elderly gentleman presented to the emergency department by ambulance when he became lightheaded at his home. A ic engineer asked him to lay down on his bed when she was on the telephone with him. He was quite somnolent when the ambulance arrived. He appeared to intermittently be able to respond to commands but eventually deteriorated to the point where he required intubation for airway protection. He had a small stroke about a year ago and he does see a neurologist. He is on antiplatelet therapy in the form of aspirin. The sustained sinus bradycardia in the 40s apparently is a long-term feature of his vital signs and he has not been plagued by hypotensive episodes. On arrival he was moderately hypertensive. CAT scan obtained of the head in the emergency department was normal. MRI of the brain demonstrates no acute occlusions. 01/01: Alert today. Moves 4 limbs to command. Tracks with eyes. Oxygen diffusion close to normal. Objective Vital Signs Date Time Temp Pulse Resp B/P (MAP) Pulse Ox O2 Delivery O2 Flow Rate FiO2 01/01/18 05:00 80 15 160/69 (99) 96 01/01/18 04:12 35 12/31/17 15:35 97.9 12/31/17 13:50 Ventilator 2.00 Intake and Output 01/01/18 01/01/18 01/02/18 08:00 16:00 00:00 Output Total 450 ml Balance -450 ml Result Diagram: 01/01/18 0500 01/01/18 0500 Other Results Laboratory Tests Test 12/31/17 11:18 Blood Gas Puncture Site RT RADIAL Blood Gas Patient Temperature 98.6 Blood Gas HCO3 25 mmol/L (22-26) Blood Gas Base Excess 0.6 mmol/L (-2-2) Blood Gas Oxygen Saturation 97 % (90-100) Arterial Blood pH 7.43 (7.380-7.420) Arterial Blood Partial Pressure CO2 38 mmHG (38-42) Arterial Blood Partial Pressure O2 136 mmHG (61-120) Arterial Blood Oxygen Content 16.9 Vol % (12.0-20.0) Arterial Blood Carboxyhemoglobin 1.4 % (0-4) Arterial Blood Methemoglobin 1.4 % (0-2) Blood Gas Hemoglobin 12.3 G/DL (12.0-16.0) Oxygen Delivery Device VENTILATOR Blood Gas Ventilator Setting A/C 500/16/+5 Blood Gas Inspired Oxygen 40 % Objective Remarks General: Intubated and mildly sedated for vent synchrony Head: Normal and atraumatic Neck: Some chronic stiffness orally intubated. Lungs: Clear bilaterally without adventitious sounds good bilateral air movement Heart: Bradycardic rhythm at 48, normal S1-S2, no murmur or rub, no JVD Abdomen soft nondistended nontender no guarding. BS active. Extremities: Warm, well-perfused. There are minor chronic abrasions with healing skin on his left carbajal. Will remove sutures. Neuro: Pupils 2 mm and react to light. Withdraws both legs to stimulation. Deep tendon reflexes patellar are 2+ bilaterally Achilles 2+ bilaterally, toes down bilaterally. Moves 4 limbs to command. Tracks with eyes. A/P Problem List: (1) Ischemic cerebrovascular accident (CVA) ICD Code: I63.9 - Cerebral infarction, unspecified Status: Acute (2) Encephalopathy acute ICD Code: G93.40 - Encephalopathy, unspecified Status: Acute (3) Bradycardia ICD Code: R00.1 - Bradycardia, unspecified Status: Chronic Assessment and Plan Plan: 1. Mechanical ventilation PRVC mode -> wean to extubate. 2. As needed bronchodilators. 3. Neurochecks. 4. Antiplatelet therapy and/or anticoagulation per neurology service. 5. Hold amlodipine for now. 6. Allow moderate hypertension if acceptable to neurology service. 7. Pepcid for GI ulcer prophylaxis 8. SCDs 9. MRI of brain 10. Cardiac echo 11. Continuous telemetry looking specifically for tachyarrhythmia 12. Dopamine if necessary to avoid hypotension. 13. PT eval. Overall impression: This man was critically ill having sustained a profound neurologic event earlier today. He became obtunded to the point that he required intubation and mechanical ventilation because of an inability to protect his airway. This morning he is alert and responds to commands. Aim for extubation, continued neuro evaluation. Orlando Nash MD Jan 01, 2018 06:12
[2018-01-01] MEDS: CHLORHEXIDINE 0.12% (ORAL KIT) 15 ML CUP MT SCH ×2 (07:37→19:55)
[2018-01-01] MEDS ORDERED: GADODIAMIDE PF 287 MG/ML 20 ML VIAL (for RAD MRI) IVCONTRAST ONE (08:30)
[2018-01-01] MEDS ORDERED: FAMOTIDINE 20 MG/2 ML VIAL IV PUSH SCH (09:00)
[2018-01-01] MEDS: PRAVASTATIN SOD 40 MG TAB PO SCH (09:00)
[2018-01-01] MEDS: amLODIPine BESYLATE 5 MG TAB PO SCH (09:00)
[2018-01-01] MEDS: LISINOPRIL 5 MG TAB PO SCH (09:00)
[2018-01-01] MEDS: DOCUSATE SODIUM 50 MG/SENNA 8.6 MG TAB PO SCH ×2 (09:00→21:29)
[2018-01-01] MEDS: ASPIRIN 300 MG SUPP RECTAL SCH (09:29)
--- NOTE | 2018-01-01 11:27 | RADRPT ---
EXAM DATE/TIME: 01/01/2018 10:22 [facility] COMPARISON: No previous studies available for comparison. INDICATIONS : Unresponsive. CONTRAST: 20 cc Omniscan (gadodiamide) IV MEDICAL HISTORY : Hypertension. SURGICAL HISTORY : Sking cancer removal. ENCOUNTER: Initial ACUITY: 1 day PAIN SCORE: 0/10 LOCATION: neck Percent stenosis is calculated using the diameter of the stenotic region over the diameter of the nor mal distal internal carotid artery. TECHNIQUE: Bolus infused MRA of the extracranial circulation was performed using a neurovascular coil. Post pro cessing was performed including rotating subvolume maximum intensity projections of each carotid nurys ry, rotating full volume maximum intensity projections of both carotid arteries, sagittal and coronal sliding thin slab reformations of each carotid artery, and left oblique sliding thin slab reformatio n through the aortic arch to include the origin of the arch branch vessels. FINDINGS: AORTIC ARCH: There is a three vessel origin of the great vessels from the aorta. No evidence of ostial narrowing. RIGHT CAROTID: The common carotid artery is intact. The carotid bulb has a normal configuration without ulceration or narrowing. The internal carotid artery lumen is smooth without stenosis. The external carotid ar miyram is intact. LEFT CAROTID: The common carotid artery is intact. The carotid bulb has a normal configuration without ulceration or narrowing. The internal carotid artery lumen is smooth without stenosis. The external carotid ar miryam is intact. VERTEBRALS: The vertebral arteries have a symmetric diameter. No stenotic lesions are seen. CONCLUSION: Normal examination. Rashida Fabian MD on January 01, 2018 at 11:24 Board Certified Radiologist. This report was verified electronically.
[2018-01-01] MEDS: ENOXAPARIN SODIUM 40 MG/0.4 ML SYRINGE SQ SCH (13:12)
[2018-01-01] MEDS: cefTRIAXone INJ 1,000 MG in SODIUM CHLORIDE 0.9% INJ 100 ML IV SCH (13:12)
--- NOTE | 2018-01-01 21:18 | HHI.PR ---
Objective Vital Signs Date Time Temp Pulse Resp B/P (MAP) Pulse Ox O2 Delivery O2 Flow Rate FiO2 01/01/18 21:00 101.2 76 22 163/65 (97) 94 01/01/18 20:10 93 Nasal Cannula 3.00 01/01/18 20:00 76 22 136/61 (86) 93 01/01/18 19:00 99.3 79 18 132/58 (82) 92 01/01/18 18:00 84 19 96 01/01/18 16:58 80 20 153/78 (103) 94 01/01/18 15:48 82 17 152/59 (90) 94 01/01/18 15:00 94 01/01/18 12:19 98.5 90 19 133/53 (79) 01/01/18 10:01 94 15 149/62 (91) 93 01/01/18 09:14 96 21 153/76 (101) 95 01/01/18 09:00 96 19 158/69 (98) 94 01/01/18 08:00 96 20 161/68 (99) 95 01/01/18 07:47 94 Nasal Cannula 3.00 01/01/18 07:00 99.8 94 15 147/68 (94) 93 01/01/18 07:00 94 01/01/18 06:36 92 01/01/18 06:28 94 15 175/66 (102) 96 01/01/18 06:20 98 Nasal Cannula 3 01/01/18 06:07 98.1 84 14 143/58 (86) 98 01/01/18 06:07 98 35 01/01/18 05:00 80 15 160/69 (99) 96 01/01/18 05:00 78 01/01/18 04:12 96 35 01/01/18 04:00 80 01/01/18 04:00 80 15 168/67 (100) 96 01/01/18 04:00 35 01/01/18 03:04 80 18 176/76 (109) 100 01/01/18 03:00 81 01/01/18 02:00 56 01/01/18 02:00 60 16 151/76 (101) 95 01/01/18 01:35 100 35 01/01/18 01:11 54 01/01/18 01:00 52 15 129/67 (87) 99 01/01/18 00:00 54 01/01/18 00:00 54 15 139/54 (82) 100 01/01/18 00:00 35 12/31/17 23:05 100 35 12/31/17 23:00 50 15 138/64 (88) 100 12/31/17 23:00 48 12/31/17 23:00 54 12/31/17 23:00 35 12/31/17 22:00 52 12/31/17 22:00 48 15 156/77 (103) 100 12/31/17 21:56 49 I/O 12/31/17 12/31/17 12/31/17 01/01/18 01/01/18 01/01/18 07:00 15:00 23:00 07:00 15:00 23:00 Intake Total 600 ml 0 ml Output Total 800 ml 450 ml 1175 ml Balance 600 ml -800 ml -450 ml -1175 ml Intake Oral 0 ml IV Total 600 ml Output Urine Total 800 ml 450 ml 1175 ml Stool Total 0 ml Result Diagram: 01/01/18 0500 01/01/18 0500 Objective Remarks awake off vent vff face sym 5/5 t/o alert speech fluent oriented memory ok Assessment and Plan Assessment and Plan imp some fever >? aspiration med team alerted looks well now plavix mra neck vb ok echo neg sr eeg fu recheck mri not so sure bilat thalamic cva will see Mejia Arteaga MD Jan 01, 2018 21:18
[2018-01-01] MEDS: DOXAZOSIN MESYLATE 4 MG TAB PO SCH (21:29)
[2018-01-01] MEDS: AMPICILLIN-SULBACTAM INJ 3 GM in SODIUM CHLORIDE 0.9% INJ 100 ML IV SCH (22:19)
[2018-01-01] MEDS: FAMOTIDINE 20 MG TAB PO SCH (22:23)
[2018-01-01] MEDS: CLOPIDOGREL 75 MG TAB PO SCH (22:24)
[2018-01-02] VITALS (29 sets, daily range): BP systolic 100–164; BP diastolic 46–82; PULSE 52–81; RESP 9–23; TEMP 96.9–98.2; O2SAT 93–99
[2018-01-02] MEDS: CHLORHEXIDINE GLUCONATE 2 % 1 PACK (2 CLOTHS) TOP SCH (04:00)
[2018-01-02] MEDS: AMPICILLIN-SULBACTAM INJ 3 GM in SODIUM CHLORIDE 0.9% INJ 100 ML IV SCH ×4 (04:04→21:01)
--- NOTE | 2018-01-02 04:21 | RADRPT ---
EXAM DATE/TIME: 01/02/2018 04:02 [facility] COMPARISON: CHEST SINGLE AP, December 31, 2017, 11:10. INDICATIONS : Pneumonia MEDICAL HISTORY : Cerebrovascular disease. Hypertension. SURGICAL HISTORY : None. ENCOUNTER: Subsequent ACUITY: 3 days PAIN SCORE: Non-responsive. LOCATION: Bilateral chest FINDINGS: Single AP view of the chest. Lung volumes are low. Endotracheal tube no longer in place. Patchy opaci ty at the lung bases likely represent atelectasis. No evidence of pleural effusion or pneumothorax. CONCLUSION: Low lung volumes with new patchy bilateral lower lung zone opacity likely representing atelectasis. E ndotracheal tube no longer seen. Demetri Lucia MD on January 02, 2018 at 4:19 Board Certified Radiologist. This report was verified electronically.
[2018-01-02] MEDS: SODIUM CHLOR 0.9% 1000 ML INJ 1,000 ML IV SCH ×2 (05:26→09:07)
[2018-01-02 06:54] LABS: CALCIUM 7.7 MG/DL (8.5-10.1)
[2018-01-02 06:55] LABS: BICARBONATE 26.9 MEQ/L (21.0-32.0)
[2018-01-02 06:58] LABS: CREATININE 1.1 MG/DL (0.60-1.30)
[2018-01-02] MEDS: CHLORHEXIDINE 0.12% (ORAL KIT) 15 ML CUP MT SCH ×2 (08:00→19:45)
--- NOTE | 2018-01-02 08:21 | MG ---
cc: Mejia Arteaga MD [facility]: [id number] INDICATION: Bilateral thalamic strokes, change in mental status, Pravachol, Norvasc, syncopal spell. DESCRIPTION: An 8 Hz, 60 microvolt symmetric posterior rhythm is seen including overall synchronous and symmetric. Some mild diffuse theta slowing is noted. No epileptiform or seizure activity is seen. Hyperventilation and photic stimulation were not performed. IMPRESSION: Essentially unremarkable EEG. Some minimal slowing was noted. I note the patient fell asleep, but did not reach stage II sleep. Some snoring was noted. Mejia Arteaga MD DJM/TL , 08:04 AM , 08:20 AM
--- NOTE | 2018-01-02 08:49 | RADRPT ---
EXAM DATE/TIME: 01/02/2018 08:32 [facility] COMPARISON: CT BRAIN W/O CONTRAST, December 31, 2017, 10:14. INDICATIONS : Thalmic CVA. MEDICAL HISTORY : Hypertension. SURGICAL HISTORY : Skin cancer. ENCOUNTER: Subsequent ACUITY: 3 day PAIN SCORE: 0/10 LOCATION: cranial TECHNIQUE: Multiplanar, multisequence MRI of the brain was performed without contrast. FINDINGS: CEREBRUM: The ventricles are normal for age. No evidence of midline shift, mass lesion or hemorrhage. There is bilateral focal restricted diffusion identified within the thalamus as well as within the central po rtion of the mid brain. There is an area of gradient echo blooming identified within the left thalami consistent with hemosiderin. No extraaxial fluid collections are seen. The pituitary gland and supr asellar cistern are normal in configuration. WHITE MATTER: Scattered foci of increased T2 signal identified within the periventricular white matter as well as w ithin the white matter of the superior convexities and cummings radiata. POSTERIOR FOSSA: The cerebellum and brainstem are intact. The 4th ventricle is midline. The cerebellopontine angle is unremarkable. The cerebellar tonsils are normal in position. DIFFUSION IMAGING: Restricted diffusion identified within the bilateral thalami and within the central portion of the ce rebellar peduncles. EXTRACRANIAL: The visualized portions of the orbits and paranasal sinuses are unremarkable. CONCLUSION: Infarcts involving the lateral thalami and central mid brain. No significant mass effect.. Rashida Fabian MD on January 02, 2018 at 8:42 Board Certified Radiologist. This report was verified electronically.
[2018-01-02] MEDS: DOCUSATE SODIUM 50 MG/SENNA 8.6 MG TAB PO SCH ×2 (09:00→20:53)
[2018-01-02] MEDS: CLOPIDOGREL 75 MG TAB PO SCH (09:06)
[2018-01-02] MEDS: FAMOTIDINE 20 MG TAB PO SCH ×2 (09:06→21:01)
[2018-01-02] MEDS: amLODIPine BESYLATE 5 MG TAB PO SCH (09:06)
[2018-01-02] MEDS: LISINOPRIL 5 MG TAB PO SCH (09:06)
[2018-01-02] MEDS: PRAVASTATIN SOD 40 MG TAB PO SCH (09:06)
[2018-01-02] MEDS: ENOXAPARIN SODIUM 40 MG/0.4 ML SYRINGE SQ SCH (13:11)
--- NOTE | 2018-01-02 17:08 | HHI.PR ---
Subjective Remarks Patient tells me he feels much better. He was initially very somnolent however he does wake up, smile at me and answer some of my questions. Significant other and daughter are at bedside. They tell me patient woke up earlier, ate lunch and has been speaking with them but then he recently fell asleep. Patient denies any chest pains, shortness of breath, states he had a cough when he first came in however the cough is very mild and does not cough as often. No chills Objective Vitals Vital Signs Date Time Temp Pulse Resp B/P (MAP) Pulse Ox O2 Delivery O2 Flow Rate FiO2 01/02/18 16:01 60 17 152/77 (102) 97 01/02/18 15:01 70 20 154/71 (98) 97 01/02/18 15:00 81 01/02/18 14:01 72 16 142/64 (90) 97 01/02/18 13:01 68 19 119/67 (84) 96 01/02/18 12:01 66 15 153/67 (95) 94 01/02/18 11:24 98.2 68 16 109/54 (72) 99 01/02/18 11:00 69 19 109/54 (72) 96 01/02/18 10:00 68 14 96 01/02/18 09:00 74 17 148/82 (104) 95 01/02/18 08:00 66 13 156/78 (104) 99 01/02/18 07:45 99 Nasal Cannula 3.00 01/02/18 07:00 70 01/02/18 07:00 98.0 64 14 149/64 (92) 96 01/02/18 07:00 64 14 149/64 (92) 96 01/02/18 06:00 56 16 135/55 (81) 99 01/02/18 05:00 54 19 122/57 (78) 98 01/02/18 04:00 96.9 52 17 124/54 (77) 98 01/02/18 03:00 52 16 108/58 (75) 98 01/02/18 02:00 58 16 110/55 (73) 96 01/02/18 01:00 64 16 138/63 (88) 96 01/02/18 00:00 68 19 119/56 (77) 95 01/01/18 23:30 16 01/01/18 23:00 100.3 72 16 147/58 (87) 94 01/01/18 23:00 72 01/01/18 22:00 90 26 162/78 (106) 95 01/01/18 21:00 101.2 76 22 163/65 (97) 94 01/01/18 20:10 93 Nasal Cannula 3.00 01/01/18 20:00 76 22 136/61 (86) 93 01/01/18 19:00 99.3 79 18 132/58 (82) 92 01/01/18 18:00 84 19 96 01/01/18 16:58 80 20 153/78 (103) 94 I/O 01/01/18 01/01/18 01/01/18 01/02/18 01/02/18 01/02/18 07:00 15:00 23:00 07:00 15:00 23:00 Intake Total 1200 ml Output Total 450 ml 1175 ml 550 ml Balance -450 ml -1175 ml 650 ml IV Total 1200 ml Output Urine Total 450 ml 1175 ml 550 ml Result Diagram: 01/01/18 0500 01/02/18 0610 Imaging Last Impressions Chest X-Ray 01/02/18 0600 Signed Impressions: Service Date/Time: Tuesday, January 02, 2018 04:02 - CONCLUSION: Low lung volumes with new patchy bilateral lower lung zone opacity likely representing atelectasis. Endotracheal tube no longer seen. Demetri Lucia MD Brain MRI 01/02/18 0000 Signed Impressions: Service Date/Time: Tuesday, January 02, 2018 08:32 - CONCLUSION: Infarcts involving the lateral thalami and central mid brain. No significant mass effect.. Rashida Fabian MD Neck Magnetic Resonance Angiography 01/01/18 0000 Signed Impressions: Service Date/Time: Monday, January 01, 2018 10:22 - CONCLUSION: Normal examination. Rashida Fabian MD Head CT 12/31/17 1000 Signed Impressions: Service Date/Time: Sunday, December 31, 2017 10:14 - CONCLUSION: 1. Age-appropriate atrophy. No acute findings in the brain. 2. Mild bilateral maxillary sinus disease. Pablo Mcclure MD Head Magnetic Resonance Angiography 12/31/17 0000 Signed Impressions: Service Date/Time: Sunday, December 31, 2017 14:55 - CONCLUSION: No evidence of vessel truncation or aneurysm. Pablo Mcclure MD Objective Remarks General: Patient is extubated. Initially somnolent however he does wake up, smiles at me and answer some of my questions. Lungs: Clear bilaterally no wheezing auscultated Heart: Regular rate rhythm with no murmurs. Abdomen soft nondistended nontender no guarding. BS active. Extremities: Warm, well-perfused. There are minor chronic abrasions with healing skin on his left carbajal. Will remove sutures. Neuro: Follows commands. He is somnolent however he easily wakes up and speaks with me but then will fall back to sleep at times. Squeezes my hands were upon command. Per family, he has been able to feed himself. A/P Problem List: (1) Ischemic cerebrovascular accident (CVA) ICD Code: I63.9 - Cerebral infarction, unspecified Status: Acute (2) Bradycardia ICD Code: R00.1 - Bradycardia, unspecified Status: Chronic (3) Encephalopathy acute ICD Code: G93.40 - Encephalopathy, unspecified Status: Acute Assessment and Plan CVA: s/p extubation. MRI shows infarcts involving lat thalamic/central mid brain. on plavix. ECHO shows EF 55-60%., EEG neg. neurology, Dr. Arteaga following. PT/OT/ST following. continue neurocheck. Continue TELE. Neck/head MRA neg. on pravastatin Aspiration PNA: currently on amp/sulbactam IV. continue current mgt. encourage IS. continue bronchodilators. HTN: now on amlodipine and lisinopril Encephalopathy: improving. DVT proph: lovenox Discharge Planning consider transferring pt to med/surg floor later today if ok w neurology Daysi Lomax MD Jan 02, 2018 17:08
--- NOTE | 2018-01-02 17:16 | HHI.PR ---
Subjective Remarks sr Objective Vital Signs Date Time Temp Pulse Resp B/P (MAP) Pulse Ox O2 Delivery O2 Flow Rate FiO2 01/02/18 16:01 60 17 152/77 (102) 97 01/02/18 15:01 70 20 154/71 (98) 97 01/02/18 15:00 81 01/02/18 14:01 72 16 142/64 (90) 97 01/02/18 13:01 68 19 119/67 (84) 96 01/02/18 12:01 66 15 153/67 (95) 94 01/02/18 11:24 98.2 68 16 109/54 (72) 99 01/02/18 11:00 69 19 109/54 (72) 96 01/02/18 10:00 68 14 96 01/02/18 09:00 74 17 148/82 (104) 95 01/02/18 08:00 66 13 156/78 (104) 99 01/02/18 07:45 99 Nasal Cannula 3.00 01/02/18 07:00 70 01/02/18 07:00 98.0 64 14 149/64 (92) 96 01/02/18 07:00 64 14 149/64 (92) 96 01/02/18 06:00 56 16 135/55 (81) 99 01/02/18 05:00 54 19 122/57 (78) 98 01/02/18 04:00 96.9 52 17 124/54 (77) 98 01/02/18 03:00 52 16 108/58 (75) 98 01/02/18 02:00 58 16 110/55 (73) 96 01/02/18 01:00 64 16 138/63 (88) 96 01/02/18 00:00 68 19 119/56 (77) 95 01/01/18 23:30 16 01/01/18 23:00 100.3 72 16 147/58 (87) 94 01/01/18 23:00 72 01/01/18 22:00 90 26 162/78 (106) 95 01/01/18 21:00 101.2 76 22 163/65 (97) 94 01/01/18 20:10 93 Nasal Cannula 3.00 01/01/18 20:00 76 22 136/61 (86) 93 01/01/18 19:00 99.3 79 18 132/58 (82) 92 01/01/18 18:00 84 19 96 I/O 01/01/18 01/01/18 01/01/18 01/02/18 01/02/18 01/02/18 07:00 15:00 23:00 07:00 15:00 23:00 Intake Total 1200 ml Output Total 450 ml 1175 ml 550 ml Balance -450 ml -1175 ml 650 ml IV Total 1200 ml Output Urine Total 450 ml 1175 ml 550 ml Result Diagram: 01/01/18 0500 01/02/18 0610 Objective Remarks awake off vent vff face sym 01/29 t/o alert speech fluent oriented stable Assessment and Plan Assessment and Plan imp some fever >? aspiration med team alerted looks well now plavix mra neck vb ok echo neg sr eeg fu recheck mri not so sure bilat thalamic cva will see 01/02/18 stable neuro mri repeat shows definite bilat thalamic cva may be artery of [place] infarct he has seen dhg and will have them place loop recorder plavix and statin for now Mejia Arteaga MD Jan 02, 2018 17:16
[2018-01-02] MEDS: DOXAZOSIN MESYLATE 4 MG TAB PO SCH (21:01)
[2018-01-03] VITALS (30 sets, daily range): BP systolic 114–175; BP diastolic 51–91; PULSE 54–80; RESP 9–24; TEMP 98–99.3; O2SAT 89–100
[2018-01-03] MEDS: CHLORHEXIDINE GLUCONATE 2 % 1 PACK (2 CLOTHS) TOP SCH (04:00)
[2018-01-03] MEDS: AMPICILLIN-SULBACTAM INJ 3 GM in SODIUM CHLORIDE 0.9% INJ 100 ML IV SCH ×4 (04:50→22:51)
[2018-01-03 05:28] LABS: CALCIUM 7.9 MG/DL (8.5-10.1)
[2018-01-03 05:32] LABS: CREATININE 1.1 MG/DL (0.60-1.30)
[2018-01-03] MEDS: CHLORHEXIDINE 0.12% (ORAL KIT) 15 ML CUP MT SCH ×2 (08:00→19:45)
[2018-01-03] MEDS: DOCUSATE SODIUM 50 MG/SENNA 8.6 MG TAB PO SCH ×2 (09:00→21:17)
[2018-01-03] MEDS: amLODIPine BESYLATE 5 MG TAB PO SCH (09:35)
[2018-01-03] MEDS: LISINOPRIL 5 MG TAB PO SCH (09:35)
[2018-01-03] MEDS: FAMOTIDINE 20 MG TAB PO SCH ×2 (09:35→21:17)
[2018-01-03] MEDS: PRAVASTATIN SOD 40 MG TAB PO SCH (09:35)
[2018-01-03] MEDS: SODIUM CHLOR 0.9% 1000 ML INJ 1,000 ML IV SCH ×2 (09:36→21:26)
[2018-01-03] MEDS: CLOPIDOGREL 75 MG TAB PO SCH (09:38)
[2018-01-03] MEDS: ENOXAPARIN SODIUM 40 MG/0.4 ML SYRINGE SQ SCH (13:37)
--- NOTE | 2018-01-03 16:14 | HM ---
Date Performed: 01/01/2018 Time Performed: 14:34:00 HOOKUP DATE: 01/01/18 02:34:00 PM Sat ANALYSIS START TIME: 01/01/2018 2:39:00 PM ANALYSIS END TIME: 01/02/2018 7:32:16 AM PATIENT AGE: 87 PATIENT HEIGHT: 66 PATIENT WEIGHT: 160 DRUG LIST PATIENT DIAGNOSIS: ALTERED LEVEL OF CONSCIOUSNESS TEST NARRATIVE: The patient's average heart rate was 71 BPM. No episodes of tachycardia wer e noted. Heart rates less than 50 BPM were noted 1% of the time. No pauses exceeding 2.0 seconds were noted. 161 ventricular ectopics, which represented < 1% of the total beat count, were noted . The highest ventricular ectopic frequency occurred from 12:00 AM to 01:00 AM Sun. During this taye e 52 VE(s) occurred. Ventricular ectopics were observed as 153 isolated beat(s) and as 4 couplet(s). No runs were noted. 269 supraventricular ectopics, which represented < 1% of the total beat cou nt, were noted. The highest supraventricular ectopic frequency occurred from 03:00 PM to 04:00 PM Sa t. During this time 45 SVE(s) occurred. No episodes of ST depression (defined as -1.0 mm or more ) were noted in channel 1. No episodes of ST depression (defined as -1.0 mm or more) were noted in c hannel 2. No episodes of ST depression (defined as -1.0 mm or more) were noted in channel 3. TEST INTERPRETATION: Minimum HR 48. Maximum HR 98. Average HR 71. Underlying rhythm is normal si nus. There are occasional PACs and one short run of PACs. Occasional PVCs also noted. Conclusions: P ACs, PVCs, occasional couplet PACs, short run of PACs, no significant atrial fibrillation Signed by : Madison Simms
--- NOTE | 2018-01-03 17:13 | HHI.PR ---
Subjective Remarks Patient was asleep when I came in but he is arousable. When he woke up, he had no complaints. He denies any chest pain, shortness of breath, palpitations, nausea or vomiting. Significant other states that he has been eating well. He worked with physical therapy and did well. Objective Vitals Vital Signs Date Time Temp Pulse Resp B/P (MAP) Pulse Ox O2 Delivery O2 Flow Rate FiO2 01/03/18 16:01 58 13 114/54 (74) 98 01/03/18 15:00 74 01/03/18 12:01 72 12 146/70 (95) 93 01/03/18 11:15 72 24 165/75 (105) 97 01/03/18 11:01 70 12 162/76 (104) 97 01/03/18 10:03 76 14 158/91 (113) 96 01/03/18 10:01 66 16 171/74 (106) 97 01/03/18 10:00 74 17 95 01/03/18 09:01 68 11 153/76 (101) 96 01/03/18 08:39 76 17 167/75 (105) 99 01/03/18 08:01 99.0 74 17 164/75 (104) 100 01/03/18 07:57 97 Nasal Cannula 2.00 01/03/18 07:38 64 13 134/60 (84) 96 01/03/18 07:12 72 9 165/71 (102) 94 01/03/18 07:00 76 11 95 01/03/18 07:00 77 01/03/18 06:01 70 14 166/74 (104) 96 01/03/18 05:17 76 20 159/66 (97) 94 01/03/18 05:01 74 14 175/70 (105) 94 01/03/18 04:01 99.3 56 16 133/56 (81) 94 01/03/18 03:01 54 16 124/51 (75) 97 01/03/18 02:01 62 13 153/51 (85) 98 01/03/18 01:01 58 16 127/52 (77) 94 01/03/18 00:01 98.7 62 18 131/67 (88) 96 01/02/18 23:02 52 01/02/18 23:01 54 15 100/46 (64) 94 01/02/18 22:01 56 18 115/48 (70) 96 01/02/18 21:01 64 9 115/48 (70) 96 01/02/18 20:10 95 Nasal Cannula 2.00 01/02/18 20:01 98.2 74 17 111/78 (89) 96 01/02/18 19:01 78 23 164/65 (98) 95 01/02/18 18:01 70 16 153/71 (98) 93 I/O 01/02/18 01/02/18 01/02/18 01/03/18 01/03/18 01/03/18 07:00 15:00 23:00 07:00 15:00 23:00 Intake Total 1200 ml 840 ml Output Total 550 ml 1450 ml 550 ml 250 ml Balance 650 ml -610 ml -550 ml -250 ml Intake Oral 840 ml IV Total 1200 ml Output Urine Total 550 ml 1450 ml 550 ml 250 ml # Voids 3 # Bowel Movements 5 1 Result Diagram: 01/01/18 0500 01/03/18 0438 Imaging Last Impressions Chest X-Ray 01/02/18 0600 Signed Impressions: Service Date/Time: Tuesday, January 02, 2018 04:02 - CONCLUSION: Low lung volumes with new patchy bilateral lower lung zone opacity likely representing atelectasis. Endotracheal tube no longer seen. Demetri Lucia MD Brain MRI 01/02/18 0000 Signed Impressions: Service Date/Time: Tuesday, January 02, 2018 08:32 - CONCLUSION: Infarcts involving the lateral thalami and central mid brain. No significant mass effect.. Rashida Fabian MD Neck Magnetic Resonance Angiography 01/01/18 0000 Signed Impressions: Service Date/Time: Monday, January 01, 2018 10:22 - CONCLUSION: Normal examination. Rashida Fabian MD Head CT 12/31/17 1000 Signed Impressions: Service Date/Time: Sunday, December 31, 2017 10:14 - CONCLUSION: 1. Age-appropriate atrophy. No acute findings in the brain. 2. Mild bilateral maxillary sinus disease. Pablo Mcclure MD Head Magnetic Resonance Angiography 12/31/17 0000 Signed Impressions: Service Date/Time: Sunday, December 31, 2017 14:55 - CONCLUSION: No evidence of vessel truncation or aneurysm. Pablo Mcclure MD Objective Remarks General: Sitting up on recliner however sleeping. He wakes up easily when I call his name. Lungs: Clear bilaterally no wheezing auscultated Heart: Regular rate rhythm with no murmurs. Abdomen soft nondistended nontender no guarding. BS active. Extremities: Warm, well-perfused. There are minor chronic abrasions with healing skin on his left carbajal. Will remove sutures. Neuro: Follows commands. Squeezes my hands were upon command. Per family, he has been able to feed himself. A/P Problem List: (1) Ischemic cerebrovascular accident (CVA) ICD Code: I63.9 - Cerebral infarction, unspecified Status: Acute (2) Bradycardia ICD Code: R00.1 - Bradycardia, unspecified Status: Chronic (3) Encephalopathy acute ICD Code: G93.40 - Encephalopathy, unspecified Status: Acute Assessment and Plan CVA: s/p extubation. MRI shows infarcts involving lat thalamic/central mid brain. on plavix. ECHO shows EF 55-60%., EEG neg. neurology, Dr. Arteaga following. PT/OT/ST following and appreciate recommendations. Continue neurocheck. Continue TELE. Neck/head MRA neg. on pravastatin. Neurology consulted cardiology for loop recorder placement. Awaiting recommendations. Aspiration PNA: currently on amp/sulbactam IV. continue current mgt. encourage IS. continue bronchodilators. Transition to p.o. antibiotics upon discharge. Continue to encourage incentive spirometer use. HTN: now on amlodipine and lisinopril Encephalopathy: improving. DVT proph: lovenox Discharge Planning Transfer to [facility] floor has been ordered. Cardiology consult pending for loop recorder placement. Daysi Lomax MD Jan 03, 2018 17:13
--- NOTE | 2018-01-03 18:45 | MB ---
cc: Veronika Padron MD DATE: 01/03/2018 REASON FOR CONSULTATION: CV evaluation after a CVA with bradycardia. HISTORY OF PRESENT ILLNESS: Mr. Wu is an 87-year-old patient who does have a history of hypertension, hyperlipidemia, CVA, and carotid artery disease. The patient currently denies any cardiac complaints to me. CURRENT MEDICATIONS: Per the record. OUTPATIENT MEDICATIONS: Included: 1. Amlodipine 5 mg a day. 2. Doxazosin 4 mg a day. 3. Lisinopril 5 mg a day. 4. Simvastatin 40 mg a day. PAST MEDICAL HISTORY: Significant for arthritis, basal cell carcinoma, BPH, bradycardia, carotid artery disease which is followed by Dr. Menendez, CVA, TIA, chronic kidney disease, hypertension, hyperlipidemia, claudication, neuropathy and syncope. Of note, the patient did undergo a 30-day monitor in October of 2017 which was normal. SOCIAL HISTORY: The patient does drink and has never smoked. FAMILY HISTORY: Positive for father with heart disease. ALLERGIES: NO KNOWN DRUG ALLERGIES. PHYSICAL EXAMINATION: VITAL SIGNS: 58, 13, 114/54. GENERAL: He is a well-appearing man, who is in no apparent distress. NECK: Free from JVD. LUNGS: Bilaterally clear to auscultation. CARDIOVASCULAR: There is normal S1 and S2. No murmurs, rubs or gallops were appreciated. ABDOMEN: Soft. EXTREMITIES: Free from edema. DATA: Echocardiogram from 12/31/2017 shows normal LV function and essentially normal valvular evaluation. His Holter monitor showed a minimum heart rate of 48 and an average heart rate of 71. There was no atrial fibrillation appreciated. MRA of the neck shows normal carotid arteries without any disease. IMPRESSIONS: Status post cerebrovascular accident - The patient has had prior cerebrovascular accident and transient ischemic attack. His cardiovascular workup has been negative for any cardiac source of embolism. The patient did have a 30-day monitor, which he finished at the end of October, but did not show any atrial fibrillation. We discussed his options for evaluation/reevaluation with a loop recorder. The patient said he will consider this as an outpatient and is not interested in being transferred to the main hospital for this procedure at this time. Additionally, I did review his telemetry and EMS strips here. There is no indication for any pacemaker secondary to his bradycardia. PLAN: I will followup with him on a p.r.n. basis here in the hospital and will schedule a followup visit to see if he is interested in having a loop recorder as an outpatient. MD EMIL Mcdermott/NAN , 06:17 PM , 06:44 PM
[2018-01-03] MEDS: DOXAZOSIN MESYLATE 4 MG TAB PO SCH (21:17)
[2018-01-04] VITALS (25 sets, daily range): BP systolic 141–200; BP diastolic 62–84; PULSE 58–78; RESP 12–31; TEMP 97.6–98.4; O2SAT 89–100
[2018-01-04] MEDS: CHLORHEXIDINE GLUCONATE 2 % 1 PACK (2 CLOTHS) TOP SCH (04:00)
[2018-01-04] MEDS: AMPICILLIN-SULBACTAM INJ 3 GM in SODIUM CHLORIDE 0.9% INJ 100 ML IV SCH ×4 (04:27→22:51)
[2018-01-04] MEDS: CHLORHEXIDINE 0.12% (ORAL KIT) 15 ML CUP MT SCH ×2 (08:00→20:00)
[2018-01-04] MEDS: DOCUSATE SODIUM 50 MG/SENNA 8.6 MG TAB PO SCH ×2 (09:00→20:00)
[2018-01-04] MEDS: SODIUM CHLOR 0.9% 1000 ML INJ 1,000 ML IV SCH (09:06)
[2018-01-04] MEDS: amLODIPine BESYLATE 5 MG TAB PO SCH (09:11)
[2018-01-04] MEDS: PRAVASTATIN SOD 40 MG TAB PO SCH (09:12)
[2018-01-04] MEDS: FAMOTIDINE 20 MG TAB PO SCH ×2 (09:12→20:00)
[2018-01-04] MEDS: CLOPIDOGREL 75 MG TAB PO SCH (09:12)
[2018-01-04] MEDS: LISINOPRIL 5 MG TAB PO SCH (09:12)
--- NOTE | 2018-01-04 12:09 | RADRPT ---
EXAM DATE/TIME: 01/04/2018 11:48 [facility] COMPARISON: No previous studies available for comparison. INDICATIONS : Short of breath, infiltrate. MEDICAL HISTORY : Hypertension. SURGICAL HISTORY : Skin cancer ENCOUNTER: Subsequent ACUITY: 3 days PAIN SCORE: 0/10 LOCATION: chest FINDINGS: The cardiac silhouette is normal in transverse diameter. The lungs are free of acute parenchymal opac ity. No effusions are identified. There is prominence of the aortic knob is with calcification charac teristic of atherosclerotic vascular disease. There is eventration of the right hemidiaphragm. CONCLUSION: 1. Cardiomegaly. No acute pulmonary disease. Mejia Sanders MD on January 04, 2018 at 12:06 Board Certified Radiologist. This report was verified electronically.
[2018-01-04] MEDS ORDERED: PLAV75TA29 PO (14:42)
--- NOTE | 2018-01-04 14:42 | HHI.DCPOC ---
Discharge Care Plan Diagnosis: (1) Ischemic cerebrovascular accident (CVA) Goals to Promote Your Health * To prevent worsening of your condition and complications * To maintain your health at the optimal level Directions to Meet Your Goals Take your medications as prescribed Follow your dietary instruction Follow activity as directed Keep your appointments as scheduled Take your immunizations and boosters as scheduled If your symptoms worsen call your PCP, if no PCP go to Urgent Care Center or Emergency Room Smoking is Dangerous to Your Health. Avoid second hand smoke Call the 24-hour hour crisis hotline for domestic abuse at Schuyler Evans Jan 04, 2018 14:42
--- NOTE | 2018-01-04 14:44 | HHI.DS ---
Discharge Summary Admission Date Dec 31, 2017 at 12:12 Discharge Date: Jan 04, 2018 Admitting Diagnosis ALTERED LEVEL OF CONSCIOUSNESS (1) Ischemic cerebrovascular accident (CVA) ICD Code: I63.9 - Cerebral infarction, unspecified Diagnosis: Principal Status: Acute (2) Bradycardia ICD Code: R00.1 - Bradycardia, unspecified Diagnosis: Principal Status: Chronic (3) Encephalopathy acute ICD Code: G93.40 - Encephalopathy, unspecified Diagnosis: Principal Status: Acute Procedures ECHOCARDIOGRAM CONCLUSIONS The left ventricular systolic function is normal with an estimated ejection fraction in the range of 55-60%. Normal left ventricular size. Wall thickness is measured at the upper limits of normal. No regional wall motion abnormalities are present. Diffuse calcification of the aortic valve. Trace aortic valve regurgitation. There is trace tricuspid valve regurgitation. The estimated pulmonary arterial pressure is 29.5 mmHg. Brief History - From Admission This elderly gentleman presented to the emergency department by ambulance when he became lightheaded at his home. A melter assistant asked him to lay down on his bed when she was on the telephone with him. He was quite somnolent when the ambulance arrived. He appeared to intermittently be able to respond to commands but eventually deteriorated to the point where he required intubation for airway protection. He had a small stroke about a year ago and he does see a neurologist. He is on antiplatelet therapy in the form of aspirin. The sustained sinus bradycardia in the 40s apparently is a long-term feature of his vital signs and he has not been plagued by hypotensive episodes. On arrival he was moderately hypertensive. CAT scan obtained of the head in the emergency department was normal. MRI of the brain demonstrates no acute occlusions. CBC/BMP: 01/01/18 0500 01/03/18 0438 Significant Findings Laboratory Tests Test 01/01/18 18:45 01/02/18 06:10 01/02/18 20:00 01/03/18 04:38 Random Glucose 107 MG/DL (74-106) Calcium Level 7.7 MG/DL (8.5-10.1) 7.9 MG/DL (8.5-10.1) Chloride Level 109 MEQ/L (98-107) 111 MEQ/L (98-107) Estimat Glomerular Filtration Rate 63 ML/MIN (>89) 63 ML/MIN (>89) Imaging Last Impressions Chest X-Ray 01/04/18 0000 Signed Impressions: Service Date/Time: Thursday, January 04, 2018 11:48 - CONCLUSION: 1. Cardiomegaly. No acute pulmonary disease. Mejia Sanders MD Brain MRI 01/02/18 0000 Signed Impressions: Service Date/Time: Tuesday, January 02, 2018 08:32 - CONCLUSION: Infarcts involving the lateral thalami and central mid brain. No significant mass effect.. Rashida Fabian MD Neck Magnetic Resonance Angiography 01/01/18 0000 Signed Impressions: Service Date/Time: Monday, January 01, 2018 10:22 - CONCLUSION: Normal examination. Rashida Fabian MD Head CT 12/31/17 1000 Signed Impressions: Service Date/Time: Sunday, December 31, 2017 10:14 - CONCLUSION: 1. Age-appropriate atrophy. No acute findings in the brain. 2. Mild bilateral maxillary sinus disease. Pablo Mcclure MD Head Magnetic Resonance Angiography 12/31/17 0000 Signed Impressions: Service Date/Time: Sunday, December 31, 2017 14:55 - CONCLUSION: No evidence of vessel truncation or aneurysm. Pablo Mcclure MD PE at Discharge General: Sitting up on recliner however sleeping. He wakes up easily when I call his name. Lungs: Clear bilaterally no wheezing auscultated Heart: Regular rate rhythm with no murmurs. Abdomen soft nondistended nontender no guarding. BS active. Extremities: Warm, well-perfused. There are minor chronic abrasions with healing skin on his left carbajal. Will remove sutures. Neuro: Follows commands. Squeezes my hands were upon command. Per family, he has been able to feed himself. Hospital Course 87-year-old male who originally presented to hospital because of decreased mentation, increased somnolence. Patient was found to have acute ischemic CVA. Patient has significant mentation issues and which he required intubation for airway protection. MRI was performed which did show a bilateral medial thalami infarct. Patient was admitted to critical care on ventilator support. Patient remained on PRBC and was extubated on January 01, 2018. Patient was continued on O2 sat mentation maintain O2 sats greater than 90%. Chest x- ray performed which did indicate atelectasis versus bilateral lower lung field opacities. Patient was started on empirical antibiotics for aspiration pneumonia with Unasyn. Patient was pancultured and urine culture showed no growth for 48 hours, blood cultures were no growth for 3 days, sputum culture showed heavy growth of normal respiratory huy. Patient underwent full neurological workup with MRI, MRA, echocardiogram, PT/OT/ST evaluations. Neurology was consulted who recommended that patient may require a loop recorder. Patient has had a 30 day event monitor without any abnormality. Patient does have a previous stroke in the past and further evaluation needs performed. Cardiology was consulted to evaluate for loop recorder. As indicated by patient that he did not want to have anything done at this moment. That he will discuss it once he is discharged in outpatient setting. Physical therapy did evaluate the patient and recommend the patient go to rehab versus home with home health care. After discussing with family it was concluded that the patient should go to rehab facility to improve strength, gait and function. Patient clinically stable this time. Patient will need to follow-up with neurology and cardiology upon discharge. [facility] once arrangements made by case management. Pt Condition on Discharge: Stable Discharge Disposition: Discharge to SNF Discharge Time: > 30 minutes Discharge Instructions DIET: Follow Instructions for: Heart Healthy Diet Speech Therapy-Diet Recommends: Regular Activities you can perform: Regular-No Restrictions Follow up Referrals: Cardiology - 2 Weeks Neurology - 2 Weeks PCP Follow-up - 1 Week New Medications: Clopidogrel (Plavix) 75 Mg Tab 75 MG PO DAILY for Stroke for 30 Days, #30 TAB Continued Medications: Amlodipine (Amlodipine) 5 Mg Tab 5 MG PO DAILY for Blood Pressure Management, #30 TAB 0 Refills Doxazosin (Doxazosin) 4 Mg Tab 4 MG PO HS, #30 TAB 0 Refills Lisinopril (Lisinopril) 5 Mg Tab 5 MG PO DAILY for Blood Pressure Management, #30 TAB 0 Refills Multiple Vitamin (Multiple Vitamin) 1 Tab 1 TAB PO DAILY for Nutritional Supplement, TAB 0 Refills Simvastatin (Simvastatin) 20 Mg Tab 20 MG PO DAILY for Cholesterol Management, #30 TAB 0 Refills Schuyler Evans Jan 04, 2018 14:44
[2018-01-04] MEDS ORDERED: hydrALAZINE HCL 10 MG TAB PO PRN (16:45)
[2018-01-04] MEDS: ENOXAPARIN SODIUM 40 MG/0.4 ML SYRINGE SQ SCH (17:17)
[2018-01-04] MEDS: DOXAZOSIN MESYLATE 4 MG TAB PO SCH (20:00)
[2018-01-05] VITALS (10 sets, daily range): BP systolic 133–170; BP diastolic 56–85; PULSE 56–144; RESP 12–21; TEMP 97.8–98.8; O2SAT 94–99
[2018-01-05] MEDS: SODIUM CHLOR 0.9% 1000 ML INJ 1,000 ML IV SCH (00:06)
[2018-01-05] MEDS: CHLORHEXIDINE GLUCONATE 2 % 1 PACK (2 CLOTHS) TOP SCH (04:00)
[2018-01-05] MEDS: AMPICILLIN-SULBACTAM INJ 3 GM in SODIUM CHLORIDE 0.9% INJ 100 ML IV SCH (04:07)
[2018-01-05] MEDS ORDERED: LISI-519 PO (07:57)
[2018-01-05] MEDS ORDERED: AMLO5 PO (07:57)
--- NOTE | 2018-01-05 08:05 | HHI.PR ---
Subjective Remarks Patient seen and examined today for follow-up on CVA. Patient clinically stable at this time. Patient was discharged yesterday to residential facility. Awaiting insurance authorization for transfer. Objective Vitals Vital Signs Date Time Temp Pulse Resp B/P (MAP) Pulse Ox O2 Delivery O2 Flow Rate FiO2 01/05/18 04:00 98.8 62 17 156/71 (99) 96 01/05/18 02:59 66 21 170/85 (113) 97 01/05/18 02:00 68 18 144/60 (88) 96 01/05/18 01:01 64 21 145/56 (85) 98 01/05/18 00:00 98.2 68 18 159/73 (101) 95 01/04/18 23:00 66 01/04/18 20:05 97 Nasal Cannula 2.00 01/04/18 20:00 75 01/04/18 20:00 98.1 75 21 175/82 (113) 98 01/04/18 17:45 74 23 169/78 (108) 98 01/04/18 17:30 70 13 187/83 (117) 99 01/04/18 17:00 70 19 164/84 (110) 99 01/04/18 16:37 74 18 200/68 (112) 100 01/04/18 16:30 68 31 185/69 (107) 100 01/04/18 16:00 97.6 58 17 169/68 (101) 99 01/04/18 16:00 64 01/04/18 15:00 78 01/04/18 14:00 68 01/04/18 13:00 78 01/04/18 12:00 97.8 74 12 156/73 (100) 93 01/04/18 11:00 78 01/04/18 10:00 76 01/04/18 09:00 62 01/04/18 08:00 97.8 76 18 176/81 (112) 96 01/04/18 08:00 58 I/O 01/04/18 01/04/18 01/04/18 01/05/18 01/05/18 01/05/18 07:00 15:00 23:00 07:00 15:00 23:00 Intake Total 100 ml 220 ml 480 ml 1084 ml Output Total 300 ml 900 ml 250 ml 800 ml Balance -200 ml -680 ml 230 ml 284 ml Intake Oral 120 ml 480 ml 120 ml IV Total 100 ml 100 ml 964 ml Output Urine Total 300 ml 900 ml 250 ml 800 ml # Voids 3 1 # Bowel Movements 2 1 1 Result Diagram: 01/01/18 0500 01/03/18 0438 Objective Remarks GENERAL: Well-developed, well-nourished, in no acute distress. alert and orientated HEENT: Head is normocephalic without any lesions or masses noted. Facial features are symmetric. Eyes: Extraocular muscles are intact. Conjunctivae were clear. NECK: Supple without any masses. Trachea midline no deviation. No JVD, CARDIAC: Regular rhythm, regular rate. S1/S2 are heard. 2/6 ejection murmur, no gallops or rubs. LUNGS: Clear to auscultation bilaterally. No wheeze, rhonchi or rales. No use of accessory muscles on inspiration or expiration. ABDOMEN: Soft, nontender. Nondistended. Bowel sounds heard in all 4 quadrants. No organomegaly or masses. Negative rebound, negative guarding EXTREMITIES: No edema, pulses are equal bilaterally. No cyanosis or clubbing NEUROLOGY: Mood and affect appear appropriate. Cranial nerves II through XII grossly intact. Moving all extremities, speech is clear Procedures ECHOCARDIOGRAM CONCLUSIONS The left ventricular systolic function is normal with an estimated ejection fraction in the range of 55-60%. Normal left ventricular size. Wall thickness is measured at the upper limits of normal. No regional wall motion abnormalities are present. Diffuse calcification of the aortic valve. Trace aortic valve regurgitation. There is trace tricuspid valve regurgitation. The estimated pulmonary arterial pressure is 29.5 mmHg. 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 Echocardiogram indicated ejection fraction 55-60%, left ventricular function was normal, trace of aortic and tricuspid valve regurgitation, PA peak pressure 29.5 mmhg PT/OT/ST evaluation are performed and recommending PT at rehab versus home with home health care Continue pravastatin Continue Plavix for anticoagulation Neurology following the patient Cardiology consulted for loop recorder placement, recommending outpatient evaluation. Patient deferring inpatient treatment Intubation for airway support in a patient with acute CVA, altered mental status , resolved Chest x-ray with possible aspiration pneumonia versus atelectasis Patient started on Unasyn Repeat AP/lateral chest x-ray shows no indications of any pneumonia Discontinue antibiotics Continue bronchodilators Encourage incentive spirometry Hypertension Amlodipine 5 mg daily, increase to 10 mg daily Lisinopril 5 mg daily, increase to 10 mg daily Apresoline as needed DVT prevention Subcutaneous Lovenox Discharge Planning Awaiting insurance authorization for discharge to residential facility Schuyler Evans Jan 05, 2018 08:05
[2018-01-05] MEDS: CLOPIDOGREL 75 MG TAB PO SCH (08:46)
[2018-01-05] MEDS: DOCUSATE SODIUM 50 MG/SENNA 8.6 MG TAB PO SCH (08:46)
[2018-01-05] MEDS: FAMOTIDINE 20 MG TAB PO SCH (08:46)
[2018-01-05] MEDS: PRAVASTATIN SOD 40 MG TAB PO SCH (08:47)
[2018-01-05] MEDS ORDERED: LISINOPRIL 10 MG TAB PO SCH (09:00)
[2018-01-05] MEDS: ENOXAPARIN SODIUM 40 MG/0.4 ML SYRINGE SQ SCH (13:00)
== END 2018-01-05 15:01 | DRG 64 ==
LOC: PHED 09:38 → PHEDA 12:12 → PHICU 15:31
PROVIDERS: ADMIT Surgery Surgical Critical Care; ATTEND Hospitalist
PROC: 0BH18EZ Insertion of Endotracheal Airway into Trachea, Via Natural or Artificial Opening Endoscopic (ICD-10-PCS; principal; 2017-12-31)
PROC: 5A1935Z Respiratory Ventilation, Less than 24 Consecutive Hours (ICD-10-PCS; 2017-12-31)
DX: I63.9 Cerebral infarction, unspecified (principal); J69.0 Pneumonitis due to inhalation of food and vomit; G93.40 Encephalopathy, unspecified; R00.1 Bradycardia, unspecified; E78.5 Hyperlipidemia, unspecified; I10 Essential (primary) hypertension; I73.9 Peripheral vascular disease, unspecified; N40.0 Benign prostatic hyperplasia without lower urinary tract symptoms; Z86.73 Personal history of transient ischemic attack (TIA), and cerebral infarction without residual deficits; Z85.828 Personal history of other malignant neoplasm of skin
CPT/HCPCS: 31500; 36600; 51702; 70450; 70544; 70548; 70551; 70553; 71045; 71046; 76937; 80048; 80053; 80307; 81001; 82140; 82607; 82805; 83735; 84100; 84425; 84439; 84443; 84484; 85025; 85610; 85652; 85730; 86038; 86592; 87040; 87070; 87086; 87205; 87493; 87641; 93005; 93225; 93226; 93306; 94002; 94003; 94150; 95819; 96361; 96365; A9579; J0295; J0330; J0696; J1650; J7030

== ENCOUNTER 2018-01-10 17:11 | Inpatient (IN) | payer OTHER, MEDICARE ==
[~2018-01-10] VITALS: Ht 182.9 cm; Wt 69.1 kg
[~2018-01-10 17:11] MED LIST changes: +AMLO5 PO; +LISI-519 PO; +PLAV75TA29 PO; +SIMV20TA PO; -SIMV80TA PO
[2018-01-10 17:21] VITALS: BP 151/70; PULSE 107; RESP 22; TEMP 101.4; O2SAT 98
[2018-01-10] MEDS ORDERED: SODIUM CHLOR 0.9% 1000 ML INJ 1,000 ML IV ONE ×3 (17:32→17:49)
--- NOTE | 2018-01-10 17:34 | PD ---
Physical Exam Date Seen by Provider: Jan 10, 2018 Time Seen by Provider: 17:34 Narrative 87-year-old male came to the emergency room sent from [facility] for altered mental status and a temperature 102.5 axillary. Patient has history of previous CVA and recently was discharged from the hospital after being intubated and diagnosed with aspiration pneumonia. Currently patient is awake and answering questions. He denies of any pain anywhere. Nurses are checking a rectal temperature. My PA seeing the patient and I am supervising him. Sepsis protocol has been initiated. Patient will require an admission eventually. Data Data Last Documented VS Vital Signs Date Time Temp Pulse Resp B/P (MAP) Pulse Ox O2 Delivery O2 Flow Rate FiO2 01/10/18 18:21 103 18 158/68 (98) 98 Nasal Cannula 2.00 01/10/18 17:21 101.4 Orders Orders Sepsis Workup Initiated (01/10/18 ) Electrocardiogram (01/10/18 17:32) Complete Blood Count With Diff (01/10/18 17:32) Comprehensive Metabolic Panel (01/10/18 17:32) Prothrombin Time / Inr (Pt) (01/10/18 17:32) Act Partial Throm Time (Ptt) (01/10/18 17:32) Lactic Acid Sepsis Protocol (01/10/18 17:32) Magnesium (Mg) (01/10/18 17:32) Lipase (01/10/18 17:32) Ckmb (Isoenzyme) Profile (01/10/18 17:32) Troponin I (01/10/18 17:32) Urinalysis - C+S If Indicated (01/10/18 17:32) Blood Culture (01/10/18 17:32) Chest, Single Ap (01/10/18 17:32) Blood Glucose (01/10/18 17:32) Ecg Monitoring (01/10/18 17:32) Iv Access Insert/Monitor (01/10/18 17:32) Cath For Specimen (01/10/18 17:32) Oximetry (01/10/18 17:32) Oxygen Administration (01/10/18 17:32) Acetaminophen (Tylenol) (01/10/18 17:45) Sodium Chlor 0.9% 1000 Ml Inj (Ns 1000 M (01/10/18 17:32) Sodium Chlor 0.9% 1000 Ml Inj (Ns 1000 M (01/10/18 17:32) Ct Brain W/O Iv Contrast(Rout) (01/10/18 ) Vancomycin Inj (Vancomycin Inj) (01/10/18 17:36) Piperacil-Tazo 4.5 Gm Premix (Zosyn 4.5 (01/10/18 17:36) C Diff Toxin Pcr (01/10/18 17:43) Sodium Chlor 0.9% 1000 Ml Inj (Ns 1000 M (01/10/18 17:49) CKMB (01/10/18 19:00) CKMB% (01/10/18 19:00) Admit Order (Ed Use Only) (01/10/18 20:25) Labs Laboratory Tests Test 01/10/18 17:48 01/10/18 17:50 01/10/18 19:00 White Blood Count 16.9 TH/MM3 Red Blood Count 4.38 MIL/MM3 Hemoglobin 13.1 GM/DL Hematocrit 39.0 % Mean Corpuscular Volume 89.0 FL Mean Corpuscular Hemoglobin 30.0 PG Mean Corpuscular Hemoglobin Concent 33.7 % Red Cell Distribution Width 14.2 % Platelet Count 311 TH/MM3 Mean Platelet Volume 8.4 FL Neutrophils (%) (Auto) 90.3 % Lymphocytes (%) (Auto) 3.7 % Monocytes (%) (Auto) 5.9 % Eosinophils (%) (Auto) 0.0 % Basophils (%) (Auto) 0.1 % Neutrophils # (Auto) 15.2 TH/MM3 Lymphocytes # (Auto) 0.6 TH/MM3 Monocytes # (Auto) 1.0 TH/MM3 Eosinophils # (Auto) 0.0 TH/MM3 Basophils # (Auto) 0.0 TH/MM3 CBC Comment DIFF FINAL Differential Comment Prothrombin Time 11.5 SEC Prothromb Time International Ratio 1.1 RATIO Activated Partial Thromboplast Time 24.5 SEC Urine Color YELLOW Urine Turbidity CLEAR Urine pH 5.0 Urine Specific [place] 1.021 Urine Protein TRACE mg/dL Urine Glucose (UA) NEG mg/dL Urine Ketones NEG mg/dL Urine Occult Blood SMALL Urine Nitrite NEG Urine Bilirubin NEG Urine Urobilinogen LESS THAN 2.0 MG/DL Urine Leukocyte Esterase NEG Urine RBC 1 /hpf Urine WBC LESS THAN 1 /hpf Urine Squamous Epithelial Cells <1 /hpf Urine Mucus FEW /lpf Microscopic Urinalysis Comment CATH-CULT NOT IND Lactic Acid Level 2.1 mmol/L Stool C. difficile Toxin (PCR) POSITIVE Stl C. difficile Toxin Epiderm 027 PRESUMPTIVE POSITIVE Blood Urea Nitrogen 24 MG/DL Creatinine 1.34 MG/DL Random Glucose 153 MG/DL Total Protein 5.2 GM/DL Albumin 2.1 GM/DL Calcium Level 7.1 MG/DL Magnesium Level 1.7 MG/DL Alkaline Phosphatase 47 U/L Aspartate Amino Transf (AST/SGOT) 24 U/L Alanine Aminotransferase (ALT/SGPT) 30 U/L Total Bilirubin 0.3 MG/DL Sodium Level 145 MEQ/L Potassium Level 3.5 MEQ/L Chloride Level 113 MEQ/L Carbon Dioxide Level 24.3 MEQ/L Anion Gap 8 MEQ/L Estimat Glomerular Filtration Rate 50 ML/MIN Protein Corrected Calcium 8.1 MG/DL Total Creatine Kinase 300 U/L Creatine Kinase MB 1.3 NG/ML Troponin I 0.03 NG/ML Lipase 64 U/L MDM Supervised Visit with DOMINIC: No Critical Care Narrative Aggregate critical care time was 30 minutes. Time to perform other separately billable procedures was not included in the critical care time. My time did not include minutes spent treating any other patients simultaneously or on activities that did not directly contribute to the patient's treatment. The services I provided to this patient were to treat and/or prevent clinically significant deterioration that could result in: Sepsis, sepsis protocol I provided critical care services requiring my management, as noted below: Chart data review, documentation time, medication orders and management, vital sign assessments/reviewing monitor data, ordering and reviewing lab tests, ordering and interpreting/reviewing x-rays and diagnostic studies, care of the patient and discussion of the patient with the admitting physicians. Vani Limon MD Jan 10, 2018 17:34
[2018-01-10] MEDS ORDERED: PIPERACIL-TAZO 4.5 GM PREMIX 100 ML IV STA (17:36)
[2018-01-10] MEDS ORDERED: VANCOMYCIN INJ 1,000 MG in SODIUM CHLOR 0.9% 250 ML INJ 250 ML IV STA (17:36)
[2018-01-10] MEDS ORDERED: ACETAMINOPHEN 325 MG TAB PO ONE (17:45)
[2018-01-10 17:51] VITALS: RESP 18; O2SAT 98
[2018-01-10 18:08] LABS: AUTOMATED NEUTROPHIL # 15.2 TH/MM3 (1.8-7.7); BASOPHIL % 0.1 % (0.0-2.0); HEMOGLOBIN 13.1 GM/DL (13.0-17.0); LYMPH % 3.7 % (9.0-44.0); LYMPHOCYTE # 0.6 TH/MM3 (1.0-4.8); MEAN CORPUSCULAR HGB CONC 33.7 % (32.0-36.0); MEAN PLATELET VOLUME 8.4 FL (7.0-11.0); MONO % 5.9 % (0.0-8.0); NEUT % 90.3 % (16.0-70.0); PLATELET COUNT 311 TH/MM3 (150-450); RED BLOOD COUNT 4.38 MIL/MM3 (4.50-5.90); RED CELL DISTRIBUTION WIDTH 14.2 % (11.6-17.2); WHITE BLOOD COUNT 16.9 TH/MM3 (4.0-11.0)
[2018-01-10 18:17] LABS: INTERNATIONAL NORMALIZED RATIO 1.1 RATIO; PROTHROMBIN TIME - PATIENT 11.5 SEC (9.8-11.6)
[2018-01-10 18:20] LABS: BILIRUBIN, URINE NEG (NEG); BLOOD, URINE SMALL (NEG); GLUCOSE,URINE NEG (NEG); KETONE, URINE NEG (NEG); MUCUS URINE FEW /lpf (OCC); NITRITE,URINE NEG (NEG); SQUAMOUS EPITHELIAL CELL URINE <1 /hpf (0-5); URINE COLOR YELLOW (YELLW/STRAW); URINE LEUKOCYTE ESTERASE NEG (NEG)
[2018-01-10 18:21] VITALS: BP 158/68; PULSE 103; RESP 18; O2SAT 98
[2018-01-10 18:26] LABS: LACTIC ACID SEPSIS PROTOCOL 2.1 mmol/L (0.4-2.0)
--- NOTE | 2018-01-10 19:44 | RADRPT ---
EXAM DATE/TIME: 01/10/2018 18:44 [facility] COMPARISON: CHEST SINGLE AP, January 02, 2018, 4:02. INDICATIONS : Fever. MEDICAL HISTORY : Hypertension. Skin cancer. SURGICAL HISTORY : Skin cancer removed. ENCOUNTER: Initial ACUITY: 1 day PAIN SCORE: Non-responsive. LOCATION: Bilateral chest FINDINGS: A single view of the chest demonstrates the lungs to be symmetrically aerated without evidence of mas s, infiltrate or effusion. The cardiomediastinal contours are unremarkable. Osseous structures are intact. CONCLUSION: No acute disease. Lebron Arias MD on January 10, 2018 at 19:41 Board Certified Radiologist. This report was verified electronically.
[2018-01-10 19:52] LABS: ALBUMIN 2.1 GM/DL (3.4-5.0); AST (GOT) 24 U/L (15-37); BICARBONATE 24.3 MEQ/L (21.0-32.0); BLOOD UREA NITROGEN 24 MG/DL (7-18); CALCIUM 7.1 MG/DL (8.5-10.1); CHLORIDE 113 MEQ/L (98-107); CREATININE 1.34 MG/DL (0.60-1.30); GLOMERULAR FILTRATION RATE 50 ML/MIN (>89); MAGNESIUM 1.7 MG/DL (1.5-2.5); SODIUM (NA) 145 MEQ/L (136-145)
[2018-01-10 19:53] LABS: ALT (GPT) 30 U/L (12-78); GLUCOSE,RANDOM 153 MG/DL (74-106)
[2018-01-10 19:58] LABS: ALKALINE PHOSPHATASE 47 U/L (45-117); CALCIUM-PROTEIN CORRECTED 8.1 MG/DL (8.5-10.1); TOTAL BILIRUBIN ADULT 0.3 MG/DL (0.2-1.0); TOTAL PROTEIN 5.2 GM/DL (6.4-8.2); TROPONIN I 0.03 NG/ML (0.02-0.05)
--- NOTE | 2018-01-10 20:17 | RADRPT ---
EXAM DATE/TIME: 01/10/2018 19:28 [facility] COMPARISON: CT BRAIN W/O CONTRAST, December 31, 2017, 10:14. INDICATIONS : Altered mental status. RADIATION DOSE: 40.63 CTDIvol (mGy) MEDICAL HISTORY : None SURGICAL HISTORY : None. ENCOUNTER: Initial ACUITY: 1 day PAIN SCALE: 0/10 LOCATION: cranial TECHNIQUE: Multiple contiguous axial images were obtained of the head. Using automated exposure control and adj ustment of the mA and/or kV according to patient size, radiation dose was kept as low as reasonably a chievable to obtain optimal diagnostic quality images. DICOM format image data is available electro nically for review and comparison. FINDINGS: CEREBRUM: The ventricles and cortical sulci are widened. No evidence of midline shift, mass lesion, hemorrhage or acute infarction. No extra-axial fluid collections are seen. POSTERIOR FOSSA: The cerebellum and brainstem are intact. The 4th ventricle is midline. The cerebellopontine angle i s unremarkable. EXTRACRANIAL: The visualized portion of the orbits is intact. There is mild bilateral maxillary sinus disease. SKULL: The calvaria is intact. No evidence of skull fracture. CONCLUSION: 1. No acute abnormality. 2. Atrophy. Lebron Arias MD on January 10, 2018 at 20:12 Board Certified Radiologist. This report was verified electronically.
--- NOTE | 2018-01-10 20:38 | PD ---
HPI Chief Complaint: Neuro Symptoms/ Deficits Time Seen by Provider: 17:30 Travel History International Travel<30 days: No Contact w/Intl Traveler<30days: No Traveled to known affect area: No History of Present Illness HPI 87-year-old male that presents to the ED for evaluation of altered mental status and fever. Patient currently resides at [facility] secondary to a stroke he had about a week ago. Patient apparently was in the hospital for about a week and had to be intubated and possibly had aspiration pneumonia. Per records patient had negative blood cultures. Patient was released to SNF and has been doing well except with having some mentation issues that have been chronic for him since the stroke. Apparently per significant other patient has been doing fine except that today when she went to visit him he was not responding his usual. Apparently he was not responding to anybody. They decided to wait a couple of hours and then as patient did not improve they brought him here for evaluation. He was found to have a 102 fever there. Per significant other she is noted the patient had cough today but not yesterday. He was also found to have some diarrhea. Patient here has been able to answer questions and appears to be more awake but does appear to go into episodes of confusion. On and off. No signs of head injury. Patient does take Plavix. No allergies to medication. No other medical complaints at this time. No signs of fall or trauma per family. Patient denies any pain. PFSH Past Medical History Hx Anticoagulant Therapy: Yes Arthritis: No Asthma: No Autoimmune Disease: No Heart Rhythm Problems: No Cancer: Yes (BCCA) Cardiovascular Problems: Yes High Cholesterol: Yes Chemotherapy: No Chest Pain: No Congestive Heart Failure: No COPD: No Cerebrovascular Accident: No Diabetes: No Diminished Hearing: No Endocrine: No Gastrointestinal Disorders: No GERD: No Genitourinary: Yes (BPH) Headaches: No Hepatitis: No Hiatal Hernia: No Hypertension: Yes Immune Disorder: No Kidney Stones: No Musculoskeletal: No Neurologic: Yes (STROKE) Psychiatric: No Reproductive: No Respiratory: No Migraines: No Radiation Therapy: No Renal Failure: No Seizures: No Sleep Apnea: No Thyroid Disease: No Ulcer: No Tetanus Vaccination: > 5 Years Influenza Vaccination: Yes Past Surgical History Abdominal Surgery: No AICD: No Arteriovenous Shunt: No Cardiac Surgery: No Ear Surgery: No Endocrine Surgery: No Eye Surgery: No Genitourinary Surgery: No Gynecologic Surgery: No Insulin Pump: No Joint Replacement: No Neurologic Surgery: No Oral Surgery: No Pacemaker: No Thoracic Surgery: No Other Surgery: Yes Social History Alcohol Use: No Tobacco Use: No Substance Use: No Allergies-Medications (Allergen,Severity, Reaction): Coded Allergies: No Known Allergies (Unverified Allergy, Unknown, 12/31/17) Reported Meds & Prescriptions Reported Meds & Active Scripts Active Norvasc (Amlodipine Besylate) 5 Mg Tab 10 Mg PO DAILY 30 Days Plavix (Clopidogrel Bisulfate) 75 Mg Tab 75 Mg PO DAILY 30 Days Reported Simvastatin 20 Mg Tab 20 Mg PO DAILY Multiple Vitamin 1 Tab 1 Tab PO DAILY Doxazosin (Doxazosin Mesylate) 4 Mg Tab 4 Mg PO HS Review of Systems ROS Limitations: Altered Mental Status Except as stated in HPI: all other systems reviewed are Neg Physical Exam Exam Limitations: Altered Mental Status Narrative GENERAL: SKIN: Warm and dry. HEAD: Atraumatic. Normocephalic. EYES: Pupils equal and round. No scleral icterus. No injection or drainage. ENT: No nasal bleeding or discharge. Mucous membranes pink and moist. Tongue is midline. No uvula deviation. NECK: Trachea midline. No JVD. CARDIOVASCULAR: Regular rate and rhythm. No murmurs, S3, S4. RESPIRATORY: No accessory muscle use. Clear to auscultation. Breath sounds equal bilaterally. GASTROINTESTINAL: Abdomen soft, non-tender, nondistended. Hepatic and splenic margins not palpable. MUSCULOSKELETAL: Extremities without clubbing, cyanosis, or edema. No obvious deformities. Full range of motion of the upper and lower extremities bilaterally. 2+ pulses bilaterally. NEUROLOGICAL: Awake and alert 2. No obvious cranial nerve deficits. Motor grossly within normal limits. Five out of 5 muscle strength in the arms and legs. Normal speech. PSYCHIATRIC: Appropriate mood and affect; insight and judgment normal. Data Data Last Documented VS Vital Signs Date Time Temp Pulse Resp B/P (MAP) Pulse Ox O2 Delivery O2 Flow Rate FiO2 01/10/18 18:21 103 18 158/68 (98) 98 Nasal Cannula 2.00 01/10/18 17:21 101.4 Orders Orders Sepsis Workup Initiated (01/10/18 ) Electrocardiogram (01/10/18 17:32) Complete Blood Count With Diff (01/10/18 17:32) Comprehensive Metabolic Panel (01/10/18 17:32) Prothrombin Time / Inr (Pt) (01/10/18 17:32) Act Partial Throm Time (Ptt) (01/10/18 17:32) Lactic Acid Sepsis Protocol (01/10/18 17:32) Magnesium (Mg) (01/10/18 17:32) Lipase (01/10/18 17:32) Ckmb (Isoenzyme) Profile (01/10/18 17:32) Troponin I (01/10/18 17:32) Urinalysis - C+S If Indicated (01/10/18 17:32) Blood Culture (01/10/18 17:32) Chest, Single Ap (01/10/18 17:32) Blood Glucose (01/10/18 17:32) Ecg Monitoring (01/10/18 17:32) Iv Access Insert/Monitor (01/10/18 17:32) Cath For Specimen (01/10/18 17:32) Oximetry (01/10/18 17:32) Oxygen Administration (01/10/18 17:32) Acetaminophen (Tylenol) (01/10/18 17:45) Sodium Chlor 0.9% 1000 Ml Inj (Ns 1000 M (01/10/18 17:32) Sodium Chlor 0.9% 1000 Ml Inj (Ns 1000 M (01/10/18 17:32) Ct Brain W/O Iv Contrast(Rout) (01/10/18 ) Vancomycin Inj (Vancomycin Inj) (01/10/18 17:36) Piperacil-Tazo 4.5 Gm Premix (Zosyn 4.5 (01/10/18 17:36) C Diff Toxin Pcr (01/10/18 17:43) Sodium Chlor 0.9% 1000 Ml Inj (Ns 1000 M (01/10/18 17:49) CKMB (01/10/18 19:00) CKMB% (01/10/18 19:00) Admit Order (Ed Use Only) (01/10/18 20:25) Labs Laboratory Tests Test 01/10/18 17:48 18 17:50 01/10/18 19:00 White Blood Count 16.9 TH/MM3 Red Blood Count 4.38 MIL/MM3 Hemoglobin 13.1 GM/DL Hematocrit 39.0 % Mean Corpuscular Volume 89.0 FL Mean Corpuscular Hemoglobin 30.0 PG Mean Corpuscular Hemoglobin Concent 33.7 % Red Cell Distribution Width 14.2 % Platelet Count 311 TH/MM3 Mean Platelet Volume 8.4 FL Neutrophils (%) (Auto) 90.3 % Lymphocytes (%) (Auto) 3.7 % Monocytes (%) (Auto) 5.9 % Eosinophils (%) (Auto) 0.0 % Basophils (%) (Auto) 0.1 % Neutrophils # (Auto) 15.2 TH/MM3 Lymphocytes # (Auto) 0.6 TH/MM3 Monocytes # (Auto) 1.0 TH/MM3 Eosinophils # (Auto) 0.0 TH/MM3 Basophils # (Auto) 0.0 TH/MM3 CBC Comment DIFF FINAL Differential Comment Prothrombin Time 11.5 SEC Prothromb Time International Ratio 1.1 RATIO Activated Partial Thromboplast Time 24.5 SEC Urine Color YELLOW Urine Turbidity CLEAR Urine pH 5.0 Urine Specific [place] 1.021 Urine Protein TRACE mg/dL Urine Glucose (UA) NEG mg/dL Urine Ketones NEG mg/dL Urine Occult Blood SMALL Urine Nitrite NEG Urine Bilirubin NEG Urine Urobilinogen LESS THAN 2.0 MG/DL Urine Leukocyte Esterase NEG Urine RBC 1 /hpf Urine WBC LESS THAN 1 /hpf Urine Squamous Epithelial Cells <1 /hpf Urine Mucus FEW /lpf Microscopic Urinalysis Comment CATH-CULT NOT IND Lactic Acid Level 2.1 mmol/L Blood Urea Nitrogen 24 MG/DL Creatinine 1.34 MG/DL Random Glucose 153 MG/DL Total Protein 5.2 GM/DL Albumin 2.1 GM/DL Calcium Level 7.1 MG/DL Magnesium Level 1.7 MG/DL Alkaline Phosphatase 47 U/L Aspartate Amino Transf (AST/SGOT) 24 U/L Alanine Aminotransferase (ALT/SGPT) 30 U/L Total Bilirubin 0.3 MG/DL Sodium Level 145 MEQ/L Potassium Level 3.5 MEQ/L Chloride Level 113 MEQ/L Carbon Dioxide Level 24.3 MEQ/L Anion Gap 8 MEQ/L Estimat Glomerular Filtration Rate 50 ML/MIN Protein Corrected Calcium 8.1 MG/DL Total Creatine Kinase 300 U/L Creatine Kinase MB 1.3 NG/ML Troponin I 0.03 NG/ML Lipase 64 U/L MDM Medical Decision Making Medical Screen Exam Complete: Yes Emergency Medical Condition: Yes Medical Record Reviewed: Yes Interpretation(s) CBC & BMP Diagram 01/10/18 17:48 01/10/18 19:00 Total Protein 5.2 L, Albumin 2.1 L, Calcium Level 7.1 *L, Magnesium Level 1.7, Alkaline Phosphatase 47, Aspartate Amino Transf (AST/SGOT) 24, Alanine Aminotransferase (ALT/SGPT) 30, Total Bilirubin 0.3 lactic acid of 2.1 Last Impressions Chest X-Ray 01/10/18 1732 Signed Impressions: Service Date/Time: Wednesday, January 10, 2018 18:44 - CONCLUSION: No acute disease. Lebron Arias MD Head CT 01/10/18 0000 Signed Impressions: Service Date/Time: Wednesday, January 10, 2018 19:28 - CONCLUSION: 1. No acute abnormality. 2. Atrophy. Lebron Arias MD UA negative EKG shows sinus tachycardia but no sign of acute ischemia noted by me and attending. Differential Diagnosis Sepsis versus altered mental status versus CVA versus C. difficile versus pneumonia versus normal exam Narrative Course 87-year-old male presents to the ED for evaluation of altered mental status and fever. Patient was properly examined and was found to have signs and symptoms concerning for sepsis and altered mental status secondary to sepsis. Labs and imaging show leukocytosis as well as elevated lactic acid. Patient was given fluids as well as IV antibiotics. No obvious source at this time. Recommendation at this time is for admission for further evaluation and treatment. C. difficile still pending. Case discussed with Dr. Limon will evaluate the patient herself and agrees with plan. Case discussed with Dr. Huggins who agrees to admission. [facility] Point of Care Internal Pos. & Neg. Controls: Passed Fecal Specimen Occult Blood: Negative Sepsis Criteria SIRS Criteria (2 or more): Temp > 100.9 or < 96.8, Heart rate over 90, WBC > 74935, < 4000 or > 10% bands Sepsis Criteria (SIRS+source): Infect source susp/known Severe Sepsis (+one): Lactate >2 Criteria Outcome: Meets severe sepsis criteria Diagnosis Primary Impression: Encephalopathy acute Additional Impression: Sepsis Qualified Codes: A41.9 - Sepsis, unspecified organism Admitting Information Admitting Physician Requests: Admit Maynor Lynn Jan 10, 2018 20:38
[2018-01-10] MEDS ORDERED: ONDANSETRON HCL 4 MG/2 ML VIAL IVP PRN (21:45)
[2018-01-10] MEDS ORDERED: SODIUM CHLORIDE 0.9% FLUSH 10 ML FLUSH IV FLUSH PRN (21:45)
[2018-01-10] MEDS ORDERED: BISACODYL 10 MG SUPP RECTAL PRN (21:45)
[2018-01-10] MEDS ORDERED: ACETAMINOPHEN 325 MG TAB PO PRN (21:45)
[2018-01-10] MEDS ORDERED: SENNOSIDES 8.6 MG TAB PO PRN (21:45)
[2018-01-10] MEDS ORDERED: Vancomycin Consult Pharmacy 1 EA OTHER SCH (21:45)
[2018-01-10] MEDS ORDERED: LACTULOSE SYRUP 20 GM/30 ML CUP PO PRN (21:45)
[2018-01-10] MEDS ORDERED: NALOXONE HCL 0.4 MG/ML AMP IV PUSH PRN (21:45)
[2018-01-10] MEDS ORDERED: MAGNESIUM HYDROXIDE SUSP 30 ML CUP PO PRN (21:45)
--- NOTE | 2018-01-10 22:23 | HHI.HP ---
[facility] Primary [facility] Phys[facility] Americo Lagunas MD Admission Diagnosis altered mental status, sepsis Diagnoses: Travel History International Travel<30 Days: No Contact w/Intl Traveler <30 Da: No Traveled to Known Affected Are: No History of Present Illness 87-year-old male with a past medical history significant for hypertension, hyperlipidemia, recent CVA on 12/31/17, CAD and peripheral vascular disease was brought from his residential facility for evaluation of altered mental status. The patient's is bedside and provides history. She states that since the patient's CVA he has had difficulty with ambulation and memory however he has been alert and oriented. She reports that when she arrived to the prison today the patient was nonresponsive. The prison has been unable to get him to eat. During her interview, the patient will respond to my questions however he is alert and oriented 1. The patient denies any pain. No chest pain or shortness of breath. No abdominal pain. No nausea/ vomiting. The reports that the prison stated he had diarrhea. No reported fevers/chills. 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 Rare alcohol. No illicit drugs. Physical Exam Vital Signs Vital Signs Date Time Temp Pulse Resp B/P (MAP) Pulse Ox O2 Delivery O2 Flow Rate FiO2 01/10/18 18:21 103 18 158/68 (98) 98 Nasal Cannula 2.00 01/10/18 17:51 18 98 Nasal Cannula 2.00 01/10/18 17:51 98 Nasal Cannula 2.00 01/10/18 17:22 118 18 98 Nasal Cannula 2.00 01/10/18 17:21 101.4 107 22 151/70 (97) 98 Physical Exam GENERAL: male lying in bed SKIN: No rashes, ecchymoses or lesions. Cool and dry. HEAD: Atraumatic. Normocephalic. No temporal or scalp tenderness. EYES: Pupils equal round and reactive. Extraocular motions intact. No scleral icterus. No injection or drainage. ENT: Nose without bleeding, purulent drainage or septal hematoma. Throat without erythema, tonsillar hypertrophy or exudate. Uvula midline. Airway patent. NECK: Trachea midline. No JVD or lymphadenopathy. Supple, nontender, no meningeal signs. CARDIOVASCULAR: Regular rate and rhythm without murmurs, gallops, or rubs. RESPIRATORY: Clear to auscultation. Breath sounds equal bilaterally. No wheezes , rales, or rhonchi. GASTROINTESTINAL: Abdomen soft, non-tender, nondistended. No hepato-splenomegaly , or palpable masses. No guarding. MUSCULOSKELETAL: Extremities without clubbing, cyanosis, or edema. No joint tenderness, effusion, or edema noted. No calf tenderness. NEUROLOGICAL: Drowsy however will answer questions and respond to voice. A&O only to self. Follows commands. Moves all 4 extremities spontaneously. Laboratory Laboratory Tests Test 01/10/18 17:48 01/10/18 17:50 01/10/18 19:00 White Blood Count 16.9 Red Blood Count 4.38 Hemoglobin 13.1 Hematocrit 39.0 Mean Corpuscular Volume 89.0 Mean Corpuscular Hemoglobin 30.0 Mean Corpuscular Hemoglobin Concent 33.7 Red Cell Distribution Width 14.2 Platelet Count 311 Mean Platelet Volume 8.4 Neutrophils (%) (Auto) 90.3 Lymphocytes (%) (Auto) 3.7 Monocytes (%) (Auto) 5.9 Eosinophils (%) (Auto) 0.0 Basophils (%) (Auto) 0.1 Neutrophils # (Auto) 15.2 Lymphocytes # (Auto) 0.6 Monocytes # (Auto) 1.0 Eosinophils # (Auto) 0.0 Basophils # (Auto) 0.0 CBC Comment DIFF FINAL Differential Comment Prothrombin Time 11.5 Prothromb Time International Ratio 1.1 Activated Partial Thromboplast Time 24.5 Urine Color YELLOW Urine Turbidity CLEAR Urine pH 5.0 Urine Specific [place] 1.021 Urine Protein TRACE Urine Glucose (UA) NEG Urine Ketones NEG Urine Occult Blood SMALL Urine Nitrite NEG Urine Bilirubin NEG Urine Urobilinogen LESS THAN 2.0 Urine Leukocyte Esterase NEG Urine RBC 1 Urine WBC LESS THAN 1 Urine Squamous Epithelial Cells <1 Urine Mucus FEW Microscopic Urinalysis Comment CATH-CULT NOT IND Lactic Acid Level 2.1 Stool C. difficile Toxin (PCR) POSITIVE Stl C. difficile Toxin Epiderm 027 PRESUMPTIVE POSITIVE Blood Urea Nitrogen 24 Creatinine 1.34 Random Glucose 153 Total Protein 5.2 Albumin 2.1 Calcium Level 7.1 Magnesium Level 1.7 Alkaline Phosphatase 47 Aspartate Amino Transf (AST/SGOT) 24 Alanine Aminotransferase (ALT/SGPT) 30 Total Bilirubin 0.3 Sodium Level 145 Potassium Level 3.5 Chloride Level 113 Carbon Dioxide Level 24.3 Anion Gap 8 Estimat Glomerular Filtration Rate 50 Protein Corrected Calcium 8.1 Total Creatine Kinase 300 Creatine Kinase MB 1.3 Troponin I 0.03 Lipase 64 Date/Time Source Procedure Growth Status 01/10/18 17:21 Blood Peripheral Aerobic Blood Culture Pending Received 01/10/18 17:21 Blood Peripheral Anaerobic Blood Culture Pending Received Result Diagram: 01/10/18 1748 01/10/18 1900 Caprini VTE Risk Assessment Caprini VTE Risk Assessment: Mod/High Risk (score >= 2) Caprini Risk Assessment Model Point Value = 1 Point Value = 2 Point Value = 3 Point Value = 5 Age 41-60 Minor surgery BMI > 25 kg/m2 Swollen legs Varicose veins or History of unexplained or recurrent spontaneous Oral contraceptives or hormone replacement Sepsis (< 1 month) Serious lung disease, including pneumonia (< 1 month) Abnormal pulmonary function Acute myocardial infarction Congestive heart failure (< 1 month) History of inflammatory bowel disease Medical patient at bed rest Age 61-74 Arthroscopic surgery Major open surgery (> 45 min) Laparoscopic surgery (> 45 min) Malignancy Confined to bed (> 72 hours) Immobilizing plaster cast Central venous access Age >= 75 History of VTE Family history of VTE Factor V Leiden Prothrombin [id number] Lupus anticoagulant Anticardiolipin antibodies Elevated serum homocysteine Heparin-induced thrombocytopenia Other congenital or acquired thrombophilia Stroke (< 1 month) Elective arthroplasty Hip, pelvis, or leg fracture Acute spinal cord injury (< 1 month) Prophylaxis Regimen Total Risk Factor Score Risk Level Prophylaxis Regimen 0-1 Low Early ambulation 2 Moderate Order ONE of the following: *Sequential Compression Device (SCD) *Heparin 5000 units SQ BID 3-4 Higher Order ONE of the following medications: *Heparin 5000 units SQ TID *Enoxaparin/Lovenox 40 mg SQ daily (WT < 150 kg, CrCl > 30 mL/min) *Enoxaparin/Lovenox 30 mg SQ daily (WT < 150 kg, CrCl > 10-29 mL/min) *Enoxaparin/Lovenox 30 mg SQ BID (WT < 150 kg, CrCl > 30 mL/min) AND/OR *Sequential Compression Device (SCD) 5 or more Highest Order ONE of the following medications: *Heparin 5000 units SQ TID (Preferred with Epidurals) *Enoxaparin/Lovenox 40 mg SQ daily (WT < 150 kg, CrCl > 30 mL/min) *Enoxaparin/Lovenox 30 mg SQ daily (WT < 150 kg, CrCl > 10-29 mL/min) *Enoxaparin/Lovenox 30 mg SQ BID (WT < 150 kg, CrCl > 30 mL/min) AND *Sequential Compression Device (SCD) Assessment and Plan Assessment and Plan Assessment/plan: 1. Sepsis/C. difficile Patient with leukocytosis, elevated lactic acid, fever and tachycardia Given broad-spectrum antibiotics in the emergency department C. difficile toxin positive Flagyl IV fluids 2. Altered mental status Likely secondary to above CT head negative for acute process 3. Acute kidney injury BUN/creatinine 24/1.34 Baseline 1.1 IV fluid hydration Monitor renal function 4. Hypertension/hyperlipidemia/coronary artery disease Continue home medications 5. Recent CVA Continue physical therapy Case management consulted to assist with return to residential facility FEN Heart healthy diet Electrolytes: Monitor and replete as needed NS at 1 25 cc/hour Heparin Physician Certification 2 Midnight Certification Type: Admission for Inpatient Services Order for Inpatient Services The services are ordered in accordance with Medicare regulations or non- Medicare payer requirements, as applicable. In the case of services not specified as inpatient-only, they are appropriately provided as inpatient services in accordance with the 2-midnight benchmark. Estimated LOS (days): 2 2 days is the estimated time the patient will need to remain in the hospital, assuming treatment plan goals are met and no additional complications. Post-Hospital Plan: Not yet determined Elissa Huggins MD Jan 10, 2018 22:23
[2018-01-10] MEDS ORDERED: VANCOMYCIN 1 GM/200 ML PREMIX IV SCH (23:00)
[2018-01-10] MEDS: HEPARIN SODIUM - SQ 10,000 UNITS/ML VIAL SQ SCH (23:15)
[2018-01-10] MEDS: metroNIDAZOLE 500 MG TAB PO SCH (23:16)
[2018-01-10] MEDS ORDERED: PIPERACIL-TAZO 4.5 GM PREMIX 100 ML IV SCH (23:30)
[2018-01-11] VITALS (15 sets, daily range): BP systolic 124–184; BP diastolic 60–83; PULSE 60–101; RESP 14–22; TEMP 97.7–100.8; O2SAT 96–100
[2018-01-11] MEDS: SODIUM CHLOR 0.9% 1000 ML INJ 1,000 ML IV SCH ×4 (00:28→20:26)
[2018-01-11] MEDS: HEPARIN SODIUM - SQ 10,000 UNITS/ML VIAL SQ SCH ×3 (05:39→20:28)
[2018-01-11] MEDS: metroNIDAZOLE 500 MG TAB PO SCH ×3 (05:39→20:28)
[2018-01-11] MEDS ORDERED: VANCOMYCIN INJ 1,000 MG in SODIUM CHLOR 0.9% 250 ML INJ 250 ML IV SCH (06:00)
[2018-01-11 07:40] LABS: AUTOMATED NEUTROPHIL # 12.1 TH/MM3 (1.8-7.7); BASOPHIL % 0.3 % (0.0-2.0); EOSINOPHIL % 0.2 % (0.0-4.0); HEMATOCRIT 36.1 % (39.0-51.0); HEMOGLOBIN 12.3 GM/DL (13.0-17.0); LYMPH % 6.7 % (9.0-44.0); LYMPHOCYTE # 0.9 TH/MM3 (1.0-4.8); MEAN CELL VOLUME 88.9 FL (80.0-100.0); MEAN CORPUSCULAR HEMOGLOBIN 30.2 PG (27.0-34.0); MEAN PLATELET VOLUME 8.4 FL (7.0-11.0); MONO % 6.6 % (0.0-8.0); MONOCYTE # 0.9 TH/MM3 (0-0.9); NEUT % 86.2 % (16.0-70.0); PLATELET COUNT 279 TH/MM3 (150-450); RED BLOOD COUNT 4.06 MIL/MM3 (4.50-5.90); RED CELL DISTRIBUTION WIDTH 13.9 % (11.6-17.2)
[2018-01-11 07:59] LABS: BICARBONATE 23.8 MEQ/L (21.0-32.0); CALCIUM 7.7 MG/DL (8.5-10.1); CREATININE 1.23 MG/DL (0.60-1.30)
[2018-01-11] MEDS: SODIUM CHLORIDE 0.9% FLUSH 10 ML FLUSH IV FLUSH SCH ×2 (09:00→20:27)
[2018-01-11] MEDS: CLOPIDOGREL 75 MG TAB PO SCH (09:00)
[2018-01-11] MEDS: DOCUSATE SODIUM 50 MG/SENNA 8.6 MG TAB PO SCH ×2 (09:00→20:26)
[2018-01-11] MEDS: LISINOPRIL 5 MG TAB PO SCH (09:00)
[2018-01-11] MEDS: PRAVASTATIN SOD 40 MG TAB PO SCH (09:00)
--- NOTE | 2018-01-11 10:06 | HHI.PR ---
Subjective Remarks GEENA Called on the patient this morning. He is unresponsive. On my evaluation, he is very lethargic with some agonal breathing using accessory muscles. loud upper airway sounds. Vital signs reviewed. Objective Vitals Vital Signs Date Time Temp Pulse Resp B/P (MAP) Pulse Ox O2 Delivery O2 Flow Rate FiO2 01/11/18 08:00 98.4 71 20 153/69 (97) 97 01/11/18 04:00 98.7 88 16 157/83 (107) 96 01/11/18 03:40 91 01/11/18 00:20 88 01/11/18 00:05 100.8 101 20 126/60 (82) 96 01/11/18 00:05 Nasal Cannula 2.00 01/10/18 18:21 103 18 158/68 (98) 98 Nasal Cannula 2.00 01/10/18 17:51 18 98 Nasal Cannula 2.00 01/10/18 17:51 98 Nasal Cannula 2.00 01/10/18 17:22 118 18 98 Nasal Cannula 2.00 01/10/18 17:21 101.4 107 22 151/70 (97) 98 I/O 01/10/18 01/10/18 01/10/18 01/11/18 01/11/18 01/11/18 07:00 15:00 23:00 07:00 15:00 23:00 Intake Total 4250 ml Balance 4250 ml Intake IV Total 4250 ml # Voids 2 # Bowel Movements 1 2 Result Diagram: 01/11/18 0640 01/11/18 0640 Objective Remarks GENERAL: Elderly male in obvious respiratory distress. CARDIOVASCULAR: Normal rate and regular rhythm RESPIRATORY: Tongue is way back with loud upper airway sounds indicating partial airway obstruction. Agonal. Lower lung levine are clear. GASTROINTESTINAL: Abdomen soft, Normal active bowel sounds MUSCULOSKELETAL: Extremities without cyanosis, or edema. NEURO: Unresponsive. A/P Problem List: (1) Sepsis ICD Code: A41.9 - Sepsis, unspecified organism Status: Acute (2) C. difficile colitis ICD Code: A04.72 - Enterocolitis due to Clostridium difficile, not specified as recurrent (3) Encephalopathy acute ICD Code: G93.40 - Encephalopathy, unspecified Status: Acute Assessment and Plan 87-year-old male admitted with sepsis secondary to C. difficile colitis and acute and worsening encephalopathy. Patient with recent ischemic stroke. He is currently critically ill, Encephalopathy is worse. Unable to protect his airway. The will likely need intubation. Obtain a stat blood gas. Transfer to the ICU. Consult critical care. I discussed with Dr. Nash. 1. Sepsis/C. difficile Patient with leukocytosis, elevated lactic acid, fever and tachycardia Given broad-spectrum antibiotics in the emergency department C. difficile toxin positive Flagyl IV fluids 2. Acute and worsening encephalopathy Likely secondary to above CT head negative for acute process 3. Acute kidney injury BUN/creatinine 24/1.34 Baseline 1.1 IV fluid hydration Monitor renal function 4. Hypertension/hyperlipidemia/coronary artery disease Continue home medications 5. Recent CVA CT head with no acute process Case management consulted to assist with return to snf facility Discharge Planning Transfer to ICU. Problem Qualifiers (1) Sepsis: Qualified Codes: A41.9 - Sepsis, unspecified organism Teresa Wilhelm MD Jan 11, 2018 10:06
--- NOTE | 2018-01-11 11:05 | PD.CONS ---
HPI Service Critical Care Medicine Consult Requested By [facility] Reason for Consult Encephalopathy Primary Care Physician Americo Lagunas MD History of Present Illness This 87-year-old man is well known to me from a previous hospitalization a couple of weeks ago at [facility]. 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 He subsequently went to rehab and [place] but required readmission to the hospital last evening for markedly decreased responsiveness. His states that he has been quite stuporous since Wednesday. On arrival last evening he appeared dehydrated and his chest x-ray appeared hypovolemic. He has had a lingering C. difficile: Infection and is prone to dehydration. He was aggressively hydrated overnight but his mental status is deteriorated despite improved blood pressure and state of hydration. CAT scan of the head obtained in the ED on arrival last night is negative for an acute event. He does not otherwise appear septic and it is doubtful that his present state of encephalopathy is related to a serious infection. Review of Systems ROS On obtainable, no family present. Past Family Social History Allergies: Coded Allergies: No Known Allergies (Unverified Allergy, Unknown, 12/31/17) Past Medical History Past Medical History (Obtained from medical records) hypertension, hyperlipidemia, recent CVA on 12/31/17, CAD and peripheral vascular disease Past Surgical History Multiple skin cancer removals Reported Medications Reported Meds & Active Scripts Active Lisinopril 5 Mg Tab 10 Mg PO DAILY Norvasc (Amlodipine Besylate) 5 Mg Tab 10 Mg PO DAILY 30 Days Plavix (Clopidogrel Bisulfate) 75 Mg Tab 75 Mg PO DAILY 30 Days Reported Simvastatin 20 Mg Tab 20 Mg PO DAILY Multiple Vitamin 1 Tab 1 Tab PO DAILY Doxazosin (Doxazosin Mesylate) 4 Mg Tab 4 Mg PO HS Allergies: Coded Allergies: No Known Allergies (Unverified Allergy, Unknown, 12/31/17) Family History Negative for CAD/DM Social History Denies tobacco. Rare alcohol. No illicit drugs. Physical Exam Vital Signs Vital Signs Date Time Temp Pulse Resp B/P (MAP) Pulse Ox O2 Delivery O2 Flow Rate FiO2 01/11/18 10:20 99 Nasal Cannula 3.00 01/11/18 09:00 97 Nasal Cannula 2.00 01/11/18 08:00 98.4 71 20 153/69 (97) 97 01/11/18 04:00 98.7 88 16 157/83 (107) 96 01/11/18 03:40 91 01/11/18 00:20 88 01/11/18 00:05 100.8 101 20 126/60 (82) 96 01/11/18 00:05 Nasal Cannula 2.00 01/10/18 18:21 103 18 158/68 (98) 98 Nasal Cannula 2.00 01/10/18 17:51 18 98 Nasal Cannula 2.00 01/10/18 17:51 98 Nasal Cannula 2.00 01/10/18 17:22 118 18 98 Nasal Cannula 2.00 01/10/18 17:21 101.4 107 22 151/70 (97) 98 Physical Exam General: Minimal responsiveness Head: Atraumatic, normal Neck: Supple, mild snoring, otherwise unobstructed air movement Lungs: Generally clear with few scattered rhonchi normal chest excursions, good bilateral air movement Heart: Regular rate and rhythm, no JVD. Occasional premature beat. Abdomen: Nondistended, nontender, no guarding, bowel sounds are active. Extremities: Warm, well-perfused, trace edema ankles. Neuro: Stuporous and responds only to painful stimulation. Withdraws all 4 limbs to stimulation. Deep tendon reflexes patella 3+ left 2+ right. No ankle clonus. Does not follow commands. Protects airway and has vigorous cough. Laboratory Laboratory Tests Test 01/10/18 17:48 01/10/18 17:50 01/10/18 19:00 01/10/18 23:35 White Blood Count 16.9 Red Blood Count 4.38 Hemoglobin 13.1 Hematocrit 39.0 Mean Corpuscular Volume 89.0 Mean Corpuscular Hemoglobin 30.0 Mean Corpuscular Hemoglobin Concent 33.7 Red Cell Distribution Width 14.2 Platelet Count 311 Mean Platelet Volume 8.4 Neutrophils (%) (Auto) 90.3 Lymphocytes (%) (Auto) 3.7 Monocytes (%) (Auto) 5.9 Eosinophils (%) (Auto) 0.0 Basophils (%) (Auto) 0.1 Neutrophils # (Auto) 15.2 Lymphocytes # (Auto) 0.6 Monocytes # (Auto) 1.0 Eosinophils # (Auto) 0.0 Basophils # (Auto) 0.0 CBC Comment DIFF FINAL Differential Comment Prothrombin Time 11.5 Prothromb Time International Ratio 1.1 Activated Partial Thromboplast Time 24.5 Urine Color YELLOW Urine Turbidity CLEAR Urine pH 5.0 Urine Specific [place] 1.021 Urine Protein TRACE Urine Glucose (UA) NEG Urine Ketones NEG Urine Occult Blood SMALL Urine Nitrite NEG Urine Bilirubin NEG Urine Urobilinogen LESS THAN 2.0 Urine Leukocyte Esterase NEG Urine RBC 1 Urine WBC LESS THAN 1 Urine Squamous Epithelial Cells <1 Urine Mucus FEW Microscopic Urinalysis Comment CATH-CULT NOT IND Lactic Acid Level 2.1 1.2 Stool C. difficile Toxin (PCR) POSITIVE Stl C. difficile Toxin Epiderm 027 PRESUMPTIVE POSITIVE Blood Urea Nitrogen 24 Creatinine 1.34 Random Glucose 153 Total Protein 5.2 Albumin 2.1 Calcium Level 7.1 Magnesium Level 1.7 Alkaline Phosphatase 47 Aspartate Amino Transf (AST/SGOT) 24 Alanine Aminotransferase (ALT/SGPT) 30 Total Bilirubin 0.3 Sodium Level 145 Potassium Level 3.5 Chloride Level 113 Carbon Dioxide Level 24.3 Anion Gap 8 Estimat Glomerular Filtration Rate 50 Protein Corrected Calcium 8.1 Total Creatine Kinase 300 Creatine Kinase MB 1.3 Troponin I 0.03 Lipase 64 Test 01/11/18 06:40 01/11/18 09:55 White Blood Count 14.0 Red Blood Count 4.06 Hemoglobin 12.3 Hematocrit 36.1 Mean Corpuscular Volume 88.9 Mean Corpuscular Hemoglobin 30.2 Mean Corpuscular Hemoglobin Concent 34.0 Red Cell Distribution Width 13.9 Platelet Count 279 Mean Platelet Volume 8.4 Neutrophils (%) (Auto) 86.2 Lymphocytes (%) (Auto) 6.7 Monocytes (%) (Auto) 6.6 Eosinophils (%) (Auto) 0.2 Basophils (%) (Auto) 0.3 Neutrophils # (Auto) 12.1 Lymphocytes # (Auto) 0.9 Monocytes # (Auto) 0.9 Eosinophils # (Auto) 0.0 Basophils # (Auto) 0.0 CBC Comment DIFF FINAL Differential Comment Blood Urea Nitrogen 19 Creatinine 1.23 Random Glucose 130 Calcium Level 7.7 Sodium Level 145 Potassium Level 3.4 Chloride Level 113 Carbon Dioxide Level 23.8 Anion Gap 8 Estimat Glomerular Filtration Rate 56 Blood Gas Puncture Site RT RADIAL Blood Gas Patient Temperature 98.6 Blood Gas HCO3 24 Blood Gas Base Excess 0.1 Blood Gas Oxygen Saturation 97 Arterial Blood pH 7.39 Arterial Blood Partial Pressure CO2 41 Arterial Blood Partial Pressure O2 130 Arterial Blood Oxygen Content 15.9 Arterial Blood Carboxyhemoglobin 1.1 Arterial Blood Methemoglobin 0.9 Blood Gas Hemoglobin 11.5 Oxygen Delivery Device NV Blood Gas Liter Flow 3 Date/Time Source Procedure Growth Status 01/10/18 17:21 Blood Peripheral Aerobic Blood Culture Pending Received 01/10/18 17:21 Blood Peripheral Anaerobic Blood Culture Pending Received Result Diagram: 01/11/18 0640 01/11/18 0640 Assessment and Plan Problem List: (1) Encephalopathy acute ICD Code: G93.40 - Encephalopathy, unspecified Status: Acute (2) C. difficile colitis ICD Code: A04.72 - Enterocolitis due to Clostridium difficile, not specified as recurrent Status: Acute (3) Dehydration, moderate ICD Code: E86.0 - Dehydration Status: Acute Assessment and Plan Plan: 1. Sepsis/C. difficile Patient with leukocytosis, elevated lactic acid, fever and tachycardia Given broad-spectrum antibiotics in the emergency department. Narrow to C.diff coverage. C. difficile toxin positive Flagyl IV fluids 2. Acute and worsening encephalopathy Likely secondary to above CT head negative for acute process Possible recurrent CVA 3. Acute kidney injury BUN/creatinine 24/1.34 Baseline 1.1 IV fluid hydration Monitor renal function 4. Hypertension/hyperlipidemia/coronary artery disease Continue home medications 5. Recent CVA CT head with no acute process Overall impression: Patient has persistent stupor despite aggressive fluid resuscitation and hoahaoism of perfusion. Orlando Nash MD Jan 11, 2018 11:05
--- NOTE | 2018-01-11 15:28 | EKG ---
Date Performed: 01/10/2018 Time Performed: 18:03:19 PTAGE: 87 years EKG: SINUS TACHYCARDIA WITH OCCASIONAL SUPRAVENTRICULAR PREMATURE COMPLEXES NONSPECIFIC T-WAVE A BNORMALITY ABNORMAL RHYTHM ECG Since the PREVIOUS TRACING , no significant change noted PREVIOUS TRACIN12/31/2017 10.11 DOCTOR: Russell Klein Interpretating Date/Time 01/11/2018 15:21:55
--- NOTE | 2018-01-11 18:22 | MB ---
cc: Claudia Schuster MD DATE: 01/11/2018 REASON FOR CONSULTATION: Change in mental status. HISTORY OF PRESENT ILLNESS: This is an 87-year-old man, prior hospitalization a couple weeks ago in [place], found to have bilateral thalamic infarcts and central midbrain, seen by Dr. Velasco. He was intubated at that time, went to rehab and came back last evening for decreased responsiveness. Apparently, per 's notation that he is stuporous since Wednesday. Last night, it appeared he was dehydrated. Chest x-ray appeared hypovolemic. He had lingering C. difficile, prone to dehydration. He has been hydrated, but has not improved mental status mak. Appearance of sepsis. ALLERGIES: NONE REPORTED. PAST MEDICAL HISTORY: Hypertension, hyperlipidemia, recent stroke, 12/31/2017, heart disease, peripheral vascular disease. PAST SURGICAL HISTORY: Multiple skin cancers active. ACTIVE HOME MEDICATIONS: Lisinopril, Norvasc, Plavix, simvastatin, vitamins, doxazosin. FAMILY HISTORY: Noncontributory. SOCIAL HISTORY: . No alcohol or drugs. PHYSICAL EXAMINATION: VITAL SIGNS: Temperature 97.8, pulse 75, respiratory rate 20, blood pressure 124/65. NECK: Supple. I do not appreciate any carotid bruits. HEART: Regular. RESPIRATORY: He is breathing with his mouth open. He sounds gurgly, but his lungs are clear. NEUROLOGIC: He is stuporous. He responds to painful stimuli, follows commands, squeezes my hands and withdraws his lower extremities with noxious stimuli. Toes are neutral, but he did follow commands with his arms. He did state his name. It was somewhat dysarthric, but he stated Erick. Gait, cerebellar cannot be assessed. LABORATORY DATA: White count is 14. Yesterday, it was 16.9. Neutrophils 86.2. Coag panel unremarkable. Chemistries: Potassium 3.4, BUN 19, creatinine 1.23, GFR 56, glucose 130. Lactic acid 1.2. Calcium 7.7. Tox screen was not done. Urine culture is not indicated. C. difficile toxin PCR positive, presumptive positive for noted . IMAGING: Chest x-ray, no acute disease. Head CT, no acute findings. His last MRI did show infarcts in the lateral thalami and central midbrain. His MRA neck, carotid negative, [place] of [place], no evidence of any acute findings either at that time. IMPRESSION: Change in mental status. Let us go ahead and get an electroencephalogram as well as a followup MRI to rule out a new stroke. Continue his clopidogrel. Continue his other medications. Avoid any sedating medication and further recommendations to be made accordingly. MD AYLA Atkins/NAN , 05:33 PM , 06:20 PM
[2018-01-11] MEDS: DOXAZOSIN MESYLATE 4 MG TAB PO SCH (20:28)
[2018-01-12] VITALS (12 sets, daily range): BP systolic 141–177; BP diastolic 62–79; PULSE 65–98; RESP 16–22; TEMP 97.4–98.5; O2SAT 96–99
[2018-01-12] MEDS: SODIUM CHLOR 0.9% 1000 ML INJ 1,000 ML IV SCH ×2 (00:46→13:32)
[2018-01-12] MEDS: HEPARIN SODIUM - SQ 10,000 UNITS/ML VIAL SQ SCH ×3 (05:26→21:54)
[2018-01-12] MEDS: metroNIDAZOLE 500 MG TAB PO SCH ×3 (05:26→21:54)
[2018-01-12] MEDS: SODIUM CHLORIDE 0.9% FLUSH 10 ML FLUSH IV FLUSH SCH ×2 (08:48→21:00)
[2018-01-12] MEDS: DOCUSATE SODIUM 50 MG/SENNA 8.6 MG TAB PO SCH ×2 (08:50→21:00)
[2018-01-12] MEDS: LISINOPRIL 5 MG TAB PO SCH (08:50)
[2018-01-12] MEDS: PRAVASTATIN SOD 40 MG TAB PO SCH (08:50)
[2018-01-12] MEDS: CLOPIDOGREL 75 MG TAB PO SCH (08:51)
--- NOTE | 2018-01-12 10:32 | RADRPT ---
EXAM DATE/TIME: 01/12/2018 09:42 [facility] COMPARISON: MRI BRAIN W/O CONTRAST, January 02, 2018, 8:32. INDICATIONS : Altered mental status. MEDICAL HISTORY : Stroke Hypertension. SURGICAL HISTORY : Skin ca removal. ENCOUNTER: Initial ACUITY: 2 day PAIN SCORE: 0/10 LOCATION: head TECHNIQUE: Multiplanar, multisequence MRI of the brain was performed without contrast. FINDINGS: There has been some improvement. The previous described restricted diffusion has resolved. Focal ar eas of high signal intensity are seen in the thalamus as well as the central midbrain stable in the interval. Mi nimal periventricular white matter changes are evident. The posterior fossa remains unremarkable. Midline structures are intact. There is no developing hemorrhage as yet. CONCLUSION: Interval improvement. Restricted diffusion described previously has resolved. Edema remains. The jugular size continues to be appropriate. Serial studies to resolution resolution are suggested to exclude neoplastic process. MR with contrast in 6 weeks is suggested. Navin Ventura MD FACR on January 12, 2018 at 10:28 Board Certified Radiologist. This report was verified electronically.
--- NOTE | 2018-01-12 12:32 | HHI.CCPN ---
Subjective Remarks/Hospital Course This 87-year-old man is well known to me from a previous hospitalization a couple of weeks ago at [facility]. 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 He subsequently went to rehab and [place] but required readmission to the hospital last evening for markedly decreased responsiveness. His states that he has been quite stuporous since Wednesday. On arrival last evening he appeared dehydrated and his chest x-ray appeared hypovolemic. He has had a lingering C. difficile: Infection and is prone to dehydration. He was aggressively hydrated overnight but his mental status is deteriorated despite improved blood pressure and state of hydration. CAT scan of the head obtained in the ED on arrival last night is negative for an acute event. He does not otherwise appear septic and it is doubtful that his present state of encephalopathy is related to a serious infection. 01/12: Remains obtunded. Protects airway. Hydration improved. Objective Vital Signs Date Time Temp Pulse Resp B/P (MAP) Pulse Ox O2 Delivery O2 Flow Rate FiO2 01/12/18 08:38 97 Nasal Cannula 3.00 01/12/18 08:02 97.5 75 16 152/63 (92) Intake and Output 01/12/18 01/12/18 01/13/18 08:00 16:00 00:00 Intake Total 1240 ml Output Total 5 ml Balance 1235 ml Result Diagram: 01/11/18 0640 01/11/18 0640 Objective Remarks General: Unresponsiveness Head: Atraumatic, normal Neck: Supple, mild snoring, otherwise unobstructed air movement Lungs: Generally clear with few scattered rhonchi normal chest excursions, good bilateral air movement Heart: Regular rate and rhythm, no JVD. Abdomen: Nondistended, nontender, no guarding, bowel sounds are active. Extremities: Warm, well-perfused, trace edema ankles. Neuro: Stuporous and responds only to painful stimulation. Withdraws all 4 limbs to noxious stimulation only. Deep tendon reflexes patella 2+ left 2+ right. No ankle clonus. Does not follow commands. Protects airway and has cough reflex. A/P Problem List: (1) Encephalopathy acute ICD Code: G93.40 - Encephalopathy, unspecified Status: Acute (2) C. difficile colitis ICD Code: A04.72 - Enterocolitis due to Clostridium difficile, not specified as recurrent Status: Acute (3) Dehydration, moderate ICD Code: E86.0 - Dehydration Status: Acute Assessment and Plan Plan: 1. Sepsis/C. difficile Patient with leukocytosis, elevated lactic acid, fever and tachycardia Given broad-spectrum antibiotics in the emergency department. Narrow to C.diff coverage. C. difficile toxin positive at [facility] recently. Flagyl IV fluids 2. Acute and worsening encephalopathy Likely secondary to above CT head negative for acute process Possible recurrent CVA 3. Acute kidney injury BUN/creatinine 24/1.34 Baseline 1.1 IV fluid hydration Monitor renal function 4. Hypertension/hyperlipidemia/coronary artery disease Continue home medications 5. Recent CVA CT head with no acute process Overall impression: Patient has persistent stupor despite aggressive fluid resuscitation and mosque of perfusion. No improvement overnight. His obtundation has not cleared after fluid and antibiotics. Does he need an LP? Orlando Nash MD Jan 12, 2018 12:32
[2018-01-12] MEDS: DOXAZOSIN MESYLATE 4 MG TAB PO SCH (21:54)
[2018-01-13] VITALS (10 sets, daily range): BP systolic 137–170; BP diastolic 62–77; PULSE 65–82; RESP 16–18; TEMP 97.4–98.2; O2SAT 95–98
[2018-01-13 05:22] LABS: AUTOMATED NEUTROPHIL # 5.3 TH/MM3 (1.8-7.7); BASOPHIL # 0.1 TH/MM3 (0-0.2); BASOPHIL % 0.7 % (0.0-2.0); EOSINOPHIL # 0.5 TH/MM3 (0-0.4); EOSINOPHIL % 6.1 % (0.0-4.0); HEMATOCRIT 34.2 % (39.0-51.0); HEMOGLOBIN 11.5 GM/DL (13.0-17.0); LYMPH % 18.3 % (9.0-44.0); LYMPHOCYTE # 1.5 TH/MM3 (1.0-4.8); MEAN CELL VOLUME 88.7 FL (80.0-100.0); MEAN CORPUSCULAR HEMOGLOBIN 29.8 PG (27.0-34.0); MEAN CORPUSCULAR HGB CONC 33.6 % (32.0-36.0); MONO % 10.4 % (0.0-8.0); MONOCYTE # 0.9 TH/MM3 (0-0.9); NEUT % 64.5 % (16.0-70.0); PLATELET COUNT 279 TH/MM3 (150-450); RED BLOOD COUNT 3.86 MIL/MM3 (4.50-5.90); RED CELL DISTRIBUTION WIDTH 13.7 % (11.6-17.2); WHITE BLOOD COUNT 8.3 TH/MM3 (4.0-11.0)
[2018-01-13] MEDS: HEPARIN SODIUM - SQ 10,000 UNITS/ML VIAL SQ SCH ×3 (05:39→21:57)
[2018-01-13] MEDS: metroNIDAZOLE 500 MG TAB PO SCH ×3 (05:40→21:57)
[2018-01-13] MEDS: SODIUM CHLOR 0.9% 1000 ML INJ 1,000 ML IV SCH ×2 (05:40→16:38)
[2018-01-13 05:44] LABS: ALBUMIN 2.4 GM/DL (3.4-5.0); BICARBONATE 28.6 MEQ/L (21.0-32.0); CALCIUM 7.6 MG/DL (8.5-10.1); CREATININE 0.99 MG/DL (0.60-1.30); DIRECT BILIRUBIN ADULT 0.1 MG/DL (0.0-0.2)
[2018-01-13 05:46] LABS: INDIRECT BILIRUBIN 0.2 MG/DL (0.0-0.8); TOTAL BILIRUBIN ADULT 0.3 MG/DL (0.2-1.0); TOTAL PROTEIN 5.6 GM/DL (6.4-8.2)
[2018-01-13] MEDS: CLOPIDOGREL 75 MG TAB PO SCH (09:00)
[2018-01-13] MEDS: DOCUSATE SODIUM 50 MG/SENNA 8.6 MG TAB PO SCH ×2 (09:00→20:44)
[2018-01-13] MEDS ORDERED: POTASSIUM PHOSPHATE MONOBASIC 500 MG TAB PO/TUBE PRN (09:00)
[2018-01-13] MEDS ORDERED: MAGNESIUM SULFATE INJ 2 GM in SODIUM CHLORIDE 0.9% INJ 96 ML IV PRN (09:00)
[2018-01-13] MEDS: SODIUM CHLORIDE 0.9% FLUSH 10 ML FLUSH IV FLUSH SCH ×2 (09:00→20:44)
[2018-01-13] MEDS ORDERED: MAGNESIUM SULFATE INJ 4 GM in SODIUM CHLORIDE 0.9% INJ 92 ML IV PRN (09:00)
[2018-01-13] MEDS: LISINOPRIL 5 MG TAB PO SCH (09:00)
[2018-01-13] MEDS ORDERED: POTASSIUM CHLOR 20 MEQ PREMIX 100 ML IV PRN ×2 (09:00)
[2018-01-13] MEDS ORDERED: POTASSIUM CHLORIDE 25 MEQ EFFERVESCENT TAB PO PRN (09:00)
[2018-01-13] MEDS ORDERED: SODIUM PHOSPHATE INJ 30 MMOL in SODIUM CHLOR 0.9% 250 ML INJ 240 ML IV PRN (09:00)
[2018-01-13] MEDS ORDERED: POTASSIUM PHOSPHATE MONOBASIC 500 MG TAB PO PRN (09:00)
[2018-01-13] MEDS: PRAVASTATIN SOD 40 MG TAB PO SCH (09:00)
[2018-01-13] MEDS ORDERED: MAGNESIUM OXIDE 400 MG TAB PO PRN (09:00)
[2018-01-13] MEDS ORDERED: POTASSIUM PHOSPHATE INJ 30 MMOL in SODIUM CHLOR 0.9% 250 ML INJ 250 ML IV PRN (09:00)
[2018-01-13] MEDS ORDERED: POTASSIUM CHLOR 40 MEQ PREMIX 100 ML IV PRN ×2 (09:00)
--- NOTE | 2018-01-13 09:08 | PD.ID.CON ---
History of Present Illness Service Infectious disease Consult Requested By Medicine service Reason for Consult Evaluation and management C. difficile infection Primary Care Physician Americo Lagunas MD Diagnoses: History of Present Illness Patient seen and examined with Dr. 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 At the time of his admission, patient had a fever 101.4, leukocytosis with white count of 16.9, tachycardia, lactic acidosis with level of 2.1 and acute renal failure consistent with severe sepsis. Per review of the medical record, since patient's recent CVA he has had difficulty with ambulation and memory however he has been alert and oriented. Reportedly, patient was found unresponsive at the [facility] facility and was not eating. Patient was alert and oriented 1. Patient denied any complaints of pain but had been having diarrhea. C. difficile study was positive and patient was started on Flagyl. CT of the head was negative for any acute process. On the second day of his hospitalization, how count was called as patient was found unresponsive, and lethargic with agonal breathing. He was then transferred to ICU under the auspices of critical care service. Patient appeared very dehydrated and it did not appear to critical care service that his decline in mentation was secondary to acute infection. Despite aggressive fluid resuscitation and muslim of perfusion patient continued to have worsening encephalopathy. Consultation was requested by neurology who ordered an EEG and follow-up MRI which revealed some improvement with previously described restricted diffusion resolution and focal areas of high signal intensity are seen in the thalamus as well as the central midbrain stable in the interval with recommendations for serial studies to exclude neoplastic process. Infectious disease consultation has been requested for evaluation and management of C. difficile infection. Patient seen and examined. He is currently afebrile. White count is now normal at 8.3. Blood cultures have shown no growth in 2 days. No family members are at the bedside. Patient is asleep but easily awakens to voice. He is calm and pleasant. He is fairly well oriented and is able to tell me his name, the city and state as well as who the president is. He is unable to answer correctly his current location, the month or year. He is not sure why he came into the hospital. He has no acute medical complaints at this time. He denies any headache, fever, chills, dizziness or vision changes. He denies any chest pain or shortness of breath. He denies any nausea, vomiting or abdominal pain. He denies any burning with urination. He is not sure if he has had any diarrhea. Discussed with patients nurse today and patients has not had a BM since yesterday. 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 intubation CAD Bradycardia CKD Neuropathy Peripheral vascular disease BCC BPH Past Surgical History Multiple skin cancer removals Reported Medications Lisinopril 5 Mg Tab 10 Mg PO DAILY Norvasc (Amlodipine Besylate) 5 Mg Tab 10 Mg PO DAILY 30 Days Plavix (Clopidogrel Bisulfate) 75 Mg Tab 75 Mg PO DAILY 30 Days Simvastatin 20 Mg Tab 20 Mg PO DAILY Multiple Vitamin 1 Tab 1 Tab PO DAILY Doxazosin (Doxazosin Mesylate) 4 Mg Tab 4 Mg PO HS Active Ordered Medications Current Medications Medications (Trade) Dose Ordered Sig/Radha Route Start Time Stop Time Status Last Admin Sodium Chloride 1,000 ml @ 75 mls/hr [id number] IV 01/10/18 21:32 01/13/18 05:40 (NS Flush) 2 ml UNSCH PRN IV FLUSH 01/10/18 21:45 (NS Flush) 2 ml BID IV FLUSH 01/11/18 09:00 (Tylenol) 650 mg Q4H PRN PO 01/10/18 21:45 01/11/18 00:28 (Zofran Inj) 4 mg Q6H PRN IVP 01/10/18 21:45 (Heparin Inj) 5,000 units Q8H SQ 01/10/18 21:45 01/13/18 05:39 (Narcan Inj) 0.4 mg UNSCH PRN IV PUSH 01/10/18 21:45 (Swapna-Colace) 1 tab BID PO 01/11/18 09:00 (Milk Of Magnesia Liq) 30 ml Q12H PRN PO 01/10/18 21:45 (Senokot) 17.2 mg Q12H PRN PO 01/10/18 21:45 (Dulcolax Supp) 10 mg DAILY PRN RECTAL 01/10/18 21:45 (Lactulose Liq) 30 ml DAILY PRN PO 01/10/18 21:45 (Norvasc) 10 mg DAILY PO 01/11/18 09:00 01/12/18 08:50 (Plavix) 75 mg DAILY PO 01/11/18 09:00 01/12/18 08:51 (Cardura) 4 mg HS PO 01/11/18 21:00 01/12/18 21:54 (Prinivil) 10 mg DAILY PO 01/11/18 09:00 01/12/18 08:50 (Pravachol) 40 mg DAILY PO 01/11/18 09:00 01/12/18 08:50 (Flagyl) 500 mg Q8HR PO 01/10/18 22:15 01/13/18 05:40 Family History Negative for CAD/DM Social History Denies tobacco. Rare alcohol. No illicit drugs. (Christin Stewart) Physical Exam Vital Signs Vital Signs Date Time Temp Pulse Resp B/P (MAP) Pulse Ox O2 Delivery O2 Flow Rate FiO2 01/13/18 04:00 80 01/13/18 04:00 98.0 82 18 158/68 (98) 96 01/13/18 04:00 Nasal Cannula 2.00 01/13/18 00:14 66 01/13/18 00:00 97.9 72 18 137/62 (87) 97 01/13/18 00:00 Nasal Cannula 2.00 01/12/18 21:23 97 Nasal Cannula 3.00 01/12/18 20:00 98 01/12/18 20:00 98.3 82 20 157/67 (97) 97 01/12/18 20:00 Nasal Cannula 2.00 01/12/18 16:02 97.6 76 16 150/62 (91) 96 01/12/18 16:00 86 01/12/18 12:02 97.4 73 16 150/62 (91) 99 Physical Exam GENERAL: This is a well-nourished, well-developed elderly male patient , in no apparent distress. Awake. Oriented to self, city, state, president. SKIN: No rashes, ecchymoses or lesions. Cool and dry. (+)Skin defect over nasal bridge HEAD: Atraumatic. Normocephalic. No temporal or scalp tenderness. EYES: Pupils equal round and reactive. Extraocular motions intact. No scleral icterus. No injection or drainage. ENT: Nose without bleeding or purulent drainage. Throat without erythema, tonsillar hypertrophy or exudate. Uvula midline. Airway patent. Dry mucus membranes. No oral thrush. NECK: Trachea midline. No lymphadenopathy. Supple, nontender, no meningeal signs. CARDIOVASCULAR: Regular rate and rhythm with 3/6 systolic murmur. RESPIRATORY: Clear to auscultation. Breath sounds equal bilaterally. No wheezes , rales, or rhonchi. GASTROINTESTINAL: Abdomen soft, non-tender, nondistended. No hepato-splenomegaly , or palpable masses. No guarding. MUSCULOSKELETAL: Extremities without clubbing, cyanosis, or edema. No joint tenderness, effusion, or edema noted. No calf tenderness. NEUROLOGICAL: Awake and oriented x 2. Cranial nerves II through XII grossly intact. Motor and sensory grossly within normal limits. No focal neurologic finding appreciated. Normal speech. Laboratory Laboratory Tests Test 01/13/18 05:05 White Blood Count 8.3 Red Blood Count 3.86 Hemoglobin 11.5 Hematocrit 34.2 Mean Corpuscular Volume 88.7 Mean Corpuscular Hemoglobin 29.8 Mean Corpuscular Hemoglobin Concent 33.6 Red Cell Distribution Width 13.7 Platelet Count 279 Mean Platelet Volume 8.0 Neutrophils (%) (Auto) 64.5 Lymphocytes (%) (Auto) 18.3 Monocytes (%) (Auto) 10.4 Eosinophils (%) (Auto) 6.1 Basophils (%) (Auto) 0.7 Neutrophils # (Auto) 5.3 Lymphocytes # (Auto) 1.5 Monocytes # (Auto) 0.9 Eosinophils # (Auto) 0.5 Basophils # (Auto) 0.1 CBC Comment DIFF FINAL Differential Comment Blood Urea Nitrogen 12 Creatinine 0.99 Random Glucose 124 Total Protein 5.6 Albumin 2.4 Calcium Level 7.6 Alkaline Phosphatase 48 Aspartate Amino Transf (AST/SGOT) 25 Alanine Aminotransferase (ALT/SGPT) 27 Total Bilirubin 0.3 Direct Bilirubin 0.1 Sodium Level 145 Potassium Level 3.0 Chloride Level 110 Carbon Dioxide Level 28.6 Anion Gap 6 Estimat Glomerular Filtration Rate 71 Indirect Bilirubin 0.2 Date/Time Source Procedure Growth Status 01/10/18 17:21 Blood Peripheral Aerobic Blood Culture - Preliminary NO GROWTH IN 2 DAYS Resulted 01/10/18 17:21 Blood Peripheral Anaerobic Blood Culture - Preliminary NO GROWTH IN 2 DAYS Resulted (Christin Stewart) Result Diagram: 01/13/18 0505 01/13/18 0505 Imaging Last Impressions Brain MRI 01/12/18 0000 Signed Impressions: Service Date/Time: Friday, January 12, 2018 09:42 - CONCLUSION: Interval improvement. Restricted diffusion described previously has resolved. Edema remains. The jugular size continues to be appropriate. Serial studies to resolution resolution are suggested to exclude neoplastic process. MR with contrast in 6 weeks is suggested. Navin Ventura MD FACR Chest X-Ray 01/10/18 1732 Signed Impressions: Service Date/Time: Wednesday, January 10, 2018 18:44 - CONCLUSION: No acute disease. Lebron Arias MD Head CT 01/10/18 0000 Signed Impressions: Service Date/Time: Wednesday, January 10, 2018 19:28 - CONCLUSION: 1. No acute abnormality. 2. Atrophy. Lebron Arias MD (Christin Stewart) Assessment and Plan Assessment and Plan Severe sepsis with fever 101.4, leukocytosis with white count of 16.9, tachycardia, lactic acidosis with level of 2.1 and acute renal failure secondary to dehydration and C diff colitis -improving but still appears dry on exam -Currently on Flagyl po and IVF -blood cx neg to date Recent CVA on 12/31/17 secondary to bilateral thalamic infarcts and central midbrain requiring intubation (s/p extubation) Acute metabolic encephalopathy -CT head neg for acute process -CXR negative -suspect secondary to acute c diff colitis infection and dehydration. Appears to be improving. -Neurology following, repeat MRI shows interval improvement. EEG pending. TIMO -creatinine 1.34, now 0.99 -improving with IVF Hypokalemia Hyperglycemia -BS elevated this admission, no reported hx of DM -possibly 2/2 acute infection Hypertension Hyperlipidemia CAD Peripheral vascular disease RECOMMENDATIONS: Patient appears to be improving on current regimen Continue po Flagyl Monitor white count Monitor fevers Follow up on final blood culture results Monitor stools Follow up on EEG results Consider ordering A1c level Follow clinical progress (Christin Stewart) Assessment and Plan The exam, history, and the medical decision-making described in the above note were completed with the assistance of the mid-level provider. I reviewed and agree with the findings presented. I attest that I had a serb-bi-ogry encounter with the patient on the same day, and personally performed and documented my assessment and findings in the medical record. Patient much more alert today. Abd: non tender, soft. CTA BL Recs: Observe off antibiotics. Oral flagyl for now complete 10 day course. If remains encephalopathic consider switching to oral vanco. Will sign off please call back if any change in the clinical condition. (Anahi Bravo MD) Christin Stewart Jan 13, 2018 09:08 Anahi Bravo MD Jan 13, 2018 16:31
--- NOTE | 2018-01-13 09:18 | MG ---
cc: French Farley MD . INDICATIONS: This is a an 87 years old patient being evaluated by neurologic change. DESCRIPTION: The patient is described as awake . There is a predominance of theta activity diffusely. There are some alpha rhythms intermixed and there is beta activity. There is no distinct lateralizing features. Hyperventilation was not performed. Photic stimulation showed no significant change. INTERPRETATION: This EEG shows mild generalized slowing, suggesting a mild diffuse disturbance of cerebral function. No distinct lateralizing features present. No epileptiform features present. French Farley MD [facility]/ , 06:51 PM , 07:03 PM
--- NOTE | 2018-01-13 11:22 | HHI.CCPN ---
Subjective Remarks/Hospital Course This 87-year-old man is well known to me from a previous hospitalization a couple of weeks ago at [facility]. 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 He subsequently went to rehab and [place] but required readmission to the hospital last evening for markedly decreased responsiveness. His states that he has been quite stuporous since Wednesday. On arrival last evening he appeared dehydrated and his chest x-ray appeared hypovolemic. He has had a lingering C. difficile: Infection and is prone to dehydration. He was aggressively hydrated overnight but his mental status is deteriorated despite improved blood pressure and state of hydration. CAT scan of the head obtained in the ED on arrival last night is negative for an acute event. He does not otherwise appear septic and it is doubtful that his present state of encephalopathy is related to a serious infection. 01/12: Remains obtunded. Protects airway. Hydration improved. 01/13: Markedly more conversant and responsive today. Objective Vital Signs Date Time Temp Pulse Resp B/P (MAP) Pulse Ox O2 Delivery O2 Flow Rate FiO2 01/13/18 09:06 96 Nasal Cannula 2.00 01/13/18 08:00 98.2 72 16 150/67 (94) Intake and Output 01/13/18 01/13/18 01/14/18 08:00 16:00 00:00 Intake Total 1302 ml Balance 1302 ml Result Diagram: 01/13/18 0505 01/13/18 0505 Objective Remarks General: Responsive. Head: Atraumatic, normal Neck: Supple, no snoring, unobstructed air movement Lungs: Generally clear, normal chest excursions, good bilateral air movement Heart: Regular rate and rhythm, no JVD. Abdomen: Nondistended, nontender, no guarding, bowel sounds are active. Extremities: Warm, well-perfused, trace edema ankles. Neuro: Alert, conversant. Protects airway and has cough reflex. A/P Problem List: (1) Encephalopathy acute ICD Code: G93.40 - Encephalopathy, unspecified Status: Acute (2) C. difficile colitis ICD Code: A04.72 - Enterocolitis due to Clostridium difficile, not specified as recurrent Status: Acute (3) Dehydration, moderate ICD Code: E86.0 - Dehydration Status: Acute Assessment and Plan Plan: 1. Sepsis/C. difficile Patient with leukocytosis, elevated lactic acid, fever and tachycardia Given broad-spectrum antibiotics in the emergency department. Narrow to C.diff coverage. C. difficile toxin positive at [facility] recently. P.O. Flagyl IV fluids 2. Acute and worsening encephalopathy Likely secondary to above CT head negative for acute process Possible recurrent CVA Improved mentation and speech today. 3. Acute kidney injury BUN/creatinine 24/1.34 Baseline 1.1 IV fluid hydration Monitor renal function Improved, resolved. 4. Hypertension/hyperlipidemia/coronary artery disease Continue home medications 5. Recent CVA CT head with no acute process Overall impression: Patient has resolving stupor. Much improvement overnight. Appereciate ID input. Orlando Nash MD Jan 13, 2018 11:22
[2018-01-13] MEDS: DOXAZOSIN MESYLATE 4 MG TAB PO SCH ×2 (20:44→21:56)
[2018-01-14] VITALS (10 sets, daily range): BP systolic 130–167; BP diastolic 66–80; PULSE 61–83; RESP 16–18; TEMP 97.4–98.1; O2SAT 95–98
[2018-01-14] MEDS: HEPARIN SODIUM - SQ 10,000 UNITS/ML VIAL SQ SCH ×3 (05:54→21:25)
[2018-01-14] MEDS: SODIUM CHLOR 0.9% 1000 ML INJ 1,000 ML IV SCH ×2 (05:54→13:54)
[2018-01-14] MEDS: metroNIDAZOLE 500 MG TAB PO SCH ×3 (05:54→21:24)
[2018-01-14 06:28] LABS: BICARBONATE 30.3 MEQ/L (21.0-32.0); BLOOD UREA NITROGEN 9 MG/DL (7-18); CHLORIDE 105 MEQ/L (98-107); CREATININE 0.95 MG/DL (0.60-1.30); GLOMERULAR FILTRATION RATE 75 ML/MIN (>89); GLUCOSE,RANDOM 105 MG/DL (74-106); SODIUM (NA) 142 MEQ/L (136-145)
[2018-01-14] MEDS: CLOPIDOGREL 75 MG TAB PO SCH (08:12)
[2018-01-14] MEDS: LISINOPRIL 5 MG TAB PO SCH (08:12)
[2018-01-14] MEDS: SODIUM CHLORIDE 0.9% FLUSH 10 ML FLUSH IV FLUSH SCH ×2 (08:13→21:00)
[2018-01-14] MEDS: PRAVASTATIN SOD 40 MG TAB PO SCH (08:13)
[2018-01-14] MEDS: DOCUSATE SODIUM 50 MG/SENNA 8.6 MG TAB PO SCH ×2 (08:13→21:00)
--- NOTE | 2018-01-14 08:21 | HHI.PR ---
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 At the time of his admission, patient had a fever 101.4, leukocytosis with white count of 16.9, tachycardia, lactic acidosis with level of 2.1 and acute renal failure consistent with severe sepsis. [facility], and Not eating, Hospitalized due to Sepsis and C Diff Colitis, CT of the head was negative for any acute process. requested EEG and MRI by Neurology specialist due to Encephalopathy, seen by ID specialist with diagnosis of Severe Sepsis, and Cute renal failure secondary to Dehydration and C Diff colitis, CXR was negative, Electrolyte derangement, recommended to continue Flagyl and complete 10 days, if remains encephalopathic consider switching to oral Vancomycin and signed off the case. 01/14: Improving his mentation discussed with his in the room, with nurse and on MDR, no nausea, vomit or diarrhea. his wants him discharged to SNF was placed order for discharge and Shopper Insights Manager working on discharge probable for tomorrow in am, replacing electrolytes today, afebrile and improved Leukocytosis off antibiotics as per ID specialist. Objective Vital Signs Date Time Temp Pulse Resp B/P (MAP) Pulse Ox O2 Delivery O2 Flow Rate FiO2 01/14/18 04:00 64 01/14/18 04:00 97.4 83 18 158/68 (98) 98 01/14/18 02:59 Nasal Cannula 2.00 01/14/18 00:00 97.7 76 17 160/69 (99) 95 01/14/18 00:00 78 01/13/18 20:10 Nasal Cannula 2.00 01/13/18 20:00 97.4 65 18 150/77 (101) 95 01/13/18 20:00 79 01/13/18 17:27 96 Nasal Cannula 2.00 01/13/18 16:00 98.1 81 18 163/74 (103) 95 01/13/18 16:00 79 01/13/18 12:00 98.0 78 18 144/63 (90) 98 01/13/18 12:00 82 01/13/18 09:06 96 Nasal Cannula 2.00 I/O 01/13/18 01/13/18 01/13/18 01/14/18 01/14/18 01/14/18 07:00 15:00 23:00 07:00 15:00 23:00 Intake Total 1302 ml 480 ml 0 ml Output Total 300 ml Balance 1302 ml 180 ml 0 ml Intake Oral 480 ml 480 ml 0 ml IV Total 822 ml Output Urine Total 300 ml # Voids 3 4 # Bowel Movements 0 0 0 Result Diagram: 01/13/18 0505 01/14/18 0501 Imaging Last Impressions Brain MRI 01/12/18 0000 Signed Impressions: Service Date/Time: Friday, January 12, 2018 09:42 - CONCLUSION: Interval improvement. Restricted diffusion described previously has resolved. Edema remains. The jugular size continues to be appropriate. Serial studies to resolution resolution are suggested to exclude neoplastic process. MR with contrast in 6 weeks is suggested. Navin Ventura MD FACR Chest X-Ray 01/10/18 1732 Signed Impressions: Service Date/Time: Wednesday, January 10, 2018 18:44 - CONCLUSION: No acute disease. Lebron Arias MD Head CT 01/10/18 0000 Signed Impressions: Service Date/Time: Wednesday, January 10, 2018 19:28 - CONCLUSION: 1. No acute abnormality. 2. Atrophy. Lebron Arias MD Procedures None Other Results Laboratory Tests Test 01/10/18 17:48 01/10/18 17:50 01/10/18 19:00 01/10/18 23:35 Prothrombin Time 11.5 SEC Prothromb Time International Ratio 1.1 RATIO Activated Partial Thromboplast Time 24.5 SEC Urine Color YELLOW Urine Turbidity CLEAR Urine pH 5.0 Urine Specific [place] 1.021 Urine Protein TRACE mg/dL Urine Glucose (UA) NEG mg/dL Urine Ketones NEG mg/dL Urine Occult Blood SMALL Urine Nitrite NEG Urine Bilirubin NEG Urine Urobilinogen LESS THAN 2.0 MG/DL Urine Leukocyte Esterase NEG Urine RBC 1 /hpf Urine WBC LESS THAN 1 /hpf Urine Squamous Epithelial Cells <1 /hpf Urine Mucus FEW /lpf Microscopic Urinalysis Comment CATH-CULT NOT IND Stool C. difficile Toxin (PCR) POSITIVE Stl C. difficile Toxin Epiderm 027 PRESUMPTIVE POSITIVE Protein Corrected Calcium 8.1 MG/DL Blood Urea Nitrogen 24 MG/DL Creatinine 1.34 MG/DL Random Glucose 153 MG/DL Total Protein 5.2 GM/DL Albumin 2.1 GM/DL Calcium Level 7.1 MG/DL Magnesium Level 1.7 MG/DL Alkaline Phosphatase 47 U/L Aspartate Amino Transf (AST/SGOT) 24 U/L Alanine Aminotransferase (ALT/SGPT) 30 U/L Total Bilirubin 0.3 MG/DL Sodium Level 145 MEQ/L Potassium Level 3.5 MEQ/L Chloride Level 113 MEQ/L Carbon Dioxide Level 24.3 MEQ/L Total Creatine Kinase 300 U/L Creatine Kinase MB 1.3 NG/ML Troponin I 0.03 NG/ML Lipase 64 U/L Lactic Acid Level 1.2 mmol/L Test 01/11/18 09:55 01/13/18 05:05 01/14/18 05:01 Blood Gas Puncture Site RT RADIAL Blood Gas Patient Temperature 98.6 Blood Gas HCO3 24 mmol/L Blood Gas Base Excess 0.1 mmol/L Blood Gas Oxygen Saturation 97 % Arterial Blood pH 7.39 Arterial Blood Partial Pressure CO2 41 mmHg Arterial Blood Partial Pressure O2 130 mmHg Arterial Blood Oxygen Content 15.9 Vol % Arterial Blood Carboxyhemoglobin 1.1 % Arterial Blood Methemoglobin 0.9 % Blood Gas Hemoglobin 11.5 G/DL Oxygen Delivery Device NV Blood Gas Liter Flow 3 L/M White Blood Count 8.3 TH/MM3 Red Blood Count 3.86 MIL/MM3 Hemoglobin 11.5 GM/DL Hematocrit 34.2 % Mean Corpuscular Volume 88.7 FL Mean Corpuscular Hemoglobin 29.8 PG Mean Corpuscular Hemoglobin Concent 33.6 % Red Cell Distribution Width 13.7 % Platelet Count 279 TH/MM3 Mean Platelet Volume 8.0 FL Neutrophils (%) (Auto) 64.5 % Lymphocytes (%) (Auto) 18.3 % Monocytes (%) (Auto) 10.4 % Eosinophils (%) (Auto) 6.1 % Basophils (%) (Auto) 0.7 % Neutrophils # (Auto) 5.3 TH/MM3 Lymphocytes # (Auto) 1.5 TH/MM3 Monocytes # (Auto) 0.9 TH/MM3 Eosinophils # (Auto) 0.5 TH/MM3 Basophils # (Auto) 0.1 TH/MM3 CBC Comment DIFF FINAL Differential Comment Phosphorus Level 2.6 MG/DL Blood Urea Nitrogen 12 MG/DL 9 MG/DL Creatinine 0.99 MG/DL 0.95 MG/DL Random Glucose 124 MG/DL 105 MG/DL Total Protein 5.6 GM/DL Albumin 2.4 GM/DL Calcium Level 7.6 MG/DL 8.0 MG/DL Alkaline Phosphatase 48 U/L Aspartate Amino Transf (AST/SGOT) 25 U/L Alanine Aminotransferase (ALT/SGPT) 27 U/L Total Bilirubin 0.3 MG/DL Direct Bilirubin 0.1 MG/DL Sodium Level 145 MEQ/L 142 MEQ/L Potassium Level 3.0 MEQ/L 3.0 MEQ/L Chloride Level 110 MEQ/L 105 MEQ/L Carbon Dioxide Level 28.6 MEQ/L 30.3 MEQ/L Indirect Bilirubin 0.2 MG/DL Anion Gap 7 MEQ/L Estimat Glomerular Filtration Rate 75 ML/MIN Ammonia 34 MCMOL/L Objective Remarks GENERAL: CARDIOVASCULAR: Normal rate and regular rhythm RESPIRATORY: GASTROINTESTINAL: Abdomen soft, Normal active bowel sounds MUSCULOSKELETAL: Extremities without cyanosis, or edema. NEURO: Medications and IVs Current Medications Medications (Trade) Dose Ordered Sig/Radha Route Start Time Stop Time Status Last Admin Sodium Chloride 1,000 ml @ 75 mls/hr [id number] IV 01/10/18 21:32 01/14/18 05:54 (NS Flush) 2 ml UNSCH PRN IV FLUSH 01/10/18 21:45 (NS Flush) 2 ml BID IV FLUSH 01/11/18 09:00 01/14/18 08:13 (Tylenol) 650 mg Q4H PRN PO 01/10/18 21:45 01/11/18 00:28 (Zofran Inj) 4 mg Q6H PRN IVP 01/10/18 21:45 (Heparin Inj) 5,000 units Q8H SQ 01/10/18 21:45 01/14/18 05:54 (Narcan Inj) 0.4 mg UNSCH PRN IV PUSH 01/10/18 21:45 (Swapna-Colace) 1 tab BID PO 01/11/18 09:00 01/14/18 08:13 (Milk Of Magnesia Liq) 30 ml Q12H PRN PO 01/10/18 21:45 (Senokot) 17.2 mg Q12H PRN PO 01/10/18 21:45 (Dulcolax Supp) 10 mg DAILY PRN RECTAL 01/10/18 21:45 (Lactulose Liq) 30 ml DAILY PRN PO 01/10/18 21:45 (Norvasc) 10 mg DAILY PO 01/11/18 09:00 01/14/18 08:12 (Plavix) 75 mg DAILY PO 01/11/18 09:00 01/14/18 08:12 (Cardura) 4 mg HS PO 01/11/18 21:00 01/13/18 21:56 (Prinivil) 10 mg DAILY PO 01/11/18 09:00 01/14/18 08:12 (Pravachol) 40 mg DAILY PO 01/11/18 09:00 01/14/18 08:13 (Flagyl) 500 mg Q8HR PO 01/10/18 22:15 01/14/18 05:54 A/P Assessment and Plan (1) Sepsis ICD Code: A41.9 - Sepsis, unspecified organism Status: Acute (2) C. difficile colitis ICD Code: A04.72 - Enterocolitis due to Clostridium difficile, not specified as recurrent (3) Encephalopathy acute ICD Code: G93.40 - Encephalopathy, unspecified Status: Acute 87-year-old male admitted with sepsis secondary to C. difficile colitis and acute and worsening encephalopathy. Patient with recent ischemic stroke. 1. Sepsis/C. difficile Patient with leukocytosis, elevated lactic acid, fever and tachycardia Given broad-spectrum antibiotics in the emergency department C. difficile toxin positive on PO Flagyl as per ID specialist follow off antibiotics. afebrile improved Leukocytosis. 2. Acute encephalopathy Improved. Likely secondary to above CT head negative for acute process Neurology specialist following and no further management. EEG negative. 3. Acute kidney injury Improved. 4. Hypertension/hyperlipidemia/coronary artery disease Continue home medications 5. Recent CVA CT head with no acute process discussed with patient's and she wants him discharged to SNF. order placed and manager behavioral working on this issues. Discharge Planning Expected by tomorrow. Thaddeus Velazquez MD Jan 14, 2018 08:21
[2018-01-14] MEDS ORDERED: POTASSIUM CHLORIDE 20 MEQ CONTROLLED RELEASE TAB PO ONE ×2 (16:15→22:00)
[2018-01-14] MEDS: DOXAZOSIN MESYLATE 4 MG TAB PO SCH (21:24)
[2018-01-15] VITALS (8 sets, daily range): BP systolic 123–158; BP diastolic 61–90; PULSE 58–87; RESP 16–22; TEMP 97.5–99; O2SAT 95–98
[2018-01-15] MEDS: metroNIDAZOLE 500 MG TAB PO SCH ×3 (05:28→21:02)
[2018-01-15] MEDS: HEPARIN SODIUM - SQ 10,000 UNITS/ML VIAL SQ SCH ×3 (05:28→21:02)
[2018-01-15] MEDS: SODIUM CHLORIDE 0.9% FLUSH 10 ML FLUSH IV FLUSH SCH ×2 (08:06→21:00)
[2018-01-15] MEDS: CLOPIDOGREL 75 MG TAB PO SCH (08:07)
[2018-01-15] MEDS: LISINOPRIL 5 MG TAB PO SCH (08:07)
[2018-01-15] MEDS: PRAVASTATIN SOD 40 MG TAB PO SCH (08:08)
[2018-01-15] MEDS: DOCUSATE SODIUM 50 MG/SENNA 8.6 MG TAB PO SCH ×2 (08:08→21:00)
[2018-01-15] MEDS: SODIUM CHLOR 0.9% 1000 ML INJ 1,000 ML IV SCH ×2 (08:23→21:03)
--- NOTE | 2018-01-15 09:30 | HHI.PR ---
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 At the time of his admission, patient had a fever 101.4, leukocytosis with white count of 16.9, tachycardia, lactic acidosis with level of 2.1 and acute renal failure consistent with severe sepsis. was [facility] Unresponsive in [facility], and Not eating, Hospitalized due to Sepsis and C Diff Colitis, CT of the head was negative for any acute process. requested EEG and MRI by Neurology specialist due to Encephalopathy, seen by ID specialist with diagnosis of Severe Sepsis, and Cute renal failure secondary to Dehydration and C Diff colitis, CXR was negative, Electrolyte derangement, recommended to continue Flagyl and complete 10 days, if remains encephalopathic consider switching to oral Vancomycin and signed off the case. 01/14: Improving his mentation discussed with his in the room, with nurse and on MDR, as per his wants him discharged to SNF was placed order for discharge and Fuel Retrofitting Technician working on discharge probable for tomorrow in am, replacing electrolytes today, afebrile and improved Leukocytosis off antibiotics as per ID specialist. 01/15: stable discussed with patient he is oriented in place and person, no nausea, vomit or diarrhea, replaced electrolytes yesterday. Objective Vital Signs Date Time Temp Pulse Resp B/P (MAP) Pulse Ox O2 Delivery O2 Flow Rate FiO2 01/15/18 04:00 58 01/15/18 04:00 98.4 59 16 141/64 (89) 96 01/15/18 00:00 99.0 61 16 123/61 (81) 95 01/14/18 23:02 98 Nasal Cannula 2.00 01/14/18 20:00 98.1 73 16 167/72 (103) 97 01/14/18 20:00 Nasal Cannula 2.00 01/14/18 20:00 62 01/14/18 16:02 98.1 62 18 130/80 (97) 98 01/14/18 16:00 61 01/14/18 12:02 97.8 77 18 149/66 (93) 98 01/14/18 12:00 71 I/O 4/20/18 401/14/18 01/15/18 01/15/18 01/15/18 07:00 15:00 23:00 07:00 15:00 23:00 Intake Total 0 ml 720 ml 440 ml Output Total 600 ml 200 ml Balance 0 ml 120 ml 240 ml Intake Oral 0 ml 720 ml 440 ml Output Urine Total 600 ml 200 ml # Voids 4 # Bowel Movements 0 0 Result Diagram: 01/13/18 0505 01/14/18 0501 Imaging Last Impressions Brain MRI 01/12/18 0000 Signed Impressions: Service Date/Time: Friday, January 12, 2018 09:42 - CONCLUSION: Interval improvement. Restricted diffusion described previously has resolved. Edema remains. The jugular size continues to be appropriate. Serial studies to resolution resolution are suggested to exclude neoplastic process. MR with contrast in 6 weeks is suggested. Navin Ventura MD FACR Chest X-Ray 01/10/18 1732 Signed Impressions: Service Date/Time: Wednesday, January 10, 2018 18:44 - CONCLUSION: No acute disease. Lebron Arias MD Head CT 01/10/18 0000 Signed Impressions: Service Date/Time: Wednesday, January 10, 2018 19:28 - CONCLUSION: 1. No acute abnormality. 2. Atrophy. Lebron Arias MD Procedures None Other Results Laboratory Tests Test 01/10/18 17:48 01/10/18 17:50 01/10/18 19:00 01/10/18 23:35 Prothrombin Time 11.5 SEC Prothromb Time International Ratio 1.1 RATIO Activated Partial Thromboplast Time 24.5 SEC Urine Color YELLOW Urine Turbidity CLEAR Urine pH 5.0 Urine Specific [place] 1.021 Urine Protein TRACE mg/dL Urine Glucose (UA) NEG mg/dL Urine Ketones NEG mg/dL Urine Occult Blood SMALL Urine Nitrite NEG Urine Bilirubin NEG Urine Urobilinogen LESS THAN 2.0 MG/DL Urine Leukocyte Esterase NEG Urine RBC 1 /hpf Urine WBC LESS THAN 1 /hpf Urine Squamous Epithelial Cells <1 /hpf Urine Mucus FEW /lpf Microscopic Urinalysis Comment CATH-CULT NOT IND Stool C. difficile Toxin (PCR) POSITIVE Stl C. difficile Toxin Epiderm 027 PRESUMPTIVE POSITIVE Protein Corrected Calcium 8.1 MG/DL Total Creatine Kinase 300 U/L Creatine Kinase MB 1.3 NG/ML Troponin I 0.03 NG/ML Lipase 64 U/L Lactic Acid Level 1.2 mmol/L Test 01/11/18 09:55 01/13/18 05:05 01/14/18 05:01 Blood Gas Puncture Site RT RADIAL Blood Gas Patient Temperature 98.6 Blood Gas HCO3 24 mmol/L Blood Gas Base Excess 0.1 mmol/L Blood Gas Oxygen Saturation 97 % Arterial Blood pH 7.39 Arterial Blood Partial Pressure CO2 41 mmHg Arterial Blood Partial Pressure O2 130 mmHg Arterial Blood Oxygen Content 15.9 Vol % Arterial Blood Carboxyhemoglobin 1.1 % Arterial Blood Methemoglobin 0.9 % Blood Gas Hemoglobin 11.5 G/DL Oxygen Delivery Device NV Blood Gas Liter Flow 3 L/M White Blood Count 8.3 TH/MM3 Red Blood Count 3.86 MIL/MM3 Hemoglobin 11.5 GM/DL Hematocrit 34.2 % Mean Corpuscular Volume 88.7 FL Mean Corpuscular Hemoglobin 29.8 PG Mean Corpuscular Hemoglobin Concent 33.6 % Red Cell Distribution Width 13.7 % Platelet Count 279 TH/MM3 Mean Platelet Volume 8.0 FL Neutrophils (%) (Auto) 64.5 % Lymphocytes (%) (Auto) 18.3 % Monocytes (%) (Auto) 10.4 % Eosinophils (%) (Auto) 6.1 % Basophils (%) (Auto) 0.7 % Neutrophils # (Auto) 5.3 TH/MM3 Lymphocytes # (Auto) 1.5 TH/MM3 Monocytes # (Auto) 0.9 TH/MM3 Eosinophils # (Auto) 0.5 TH/MM3 Basophils # (Auto) 0.1 TH/MM3 CBC Comment DIFF FINAL Differential Comment Phosphorus Level 2.6 MG/DL Blood Urea Nitrogen 12 MG/DL 9 MG/DL Creatinine 0.99 MG/DL 0.95 MG/DL Random Glucose 124 MG/DL 105 MG/DL Total Protein 5.6 GM/DL Albumin 2.4 GM/DL Calcium Level 7.6 MG/DL 8.0 MG/DL Alkaline Phosphatase 48 U/L Aspartate Amino Transf (AST/SGOT) 25 U/L Alanine Aminotransferase (ALT/SGPT) 27 U/L Total Bilirubin 0.3 MG/DL Direct Bilirubin 0.1 MG/DL Sodium Level 145 MEQ/L 142 MEQ/L Potassium Level 3.0 MEQ/L 3.0 MEQ/L Chloride Level 110 MEQ/L 105 MEQ/L Carbon Dioxide Level 28.6 MEQ/L 30.3 MEQ/L Indirect Bilirubin 0.2 MG/DL Anion Gap 7 MEQ/L Estimat Glomerular Filtration Rate 75 ML/MIN Hemoglobin A1c 6.0 % Magnesium Level 1.9 MG/DL Ammonia 34 MCMOL/L Objective Remarks GENERAL: CARDIOVASCULAR: Normal rate and regular rhythm RESPIRATORY: GASTROINTESTINAL: Abdomen soft, Normal active bowel sounds MUSCULOSKELETAL: Extremities without cyanosis, or edema. NEURO: Medications and IVs Current Medications Medications (Trade) Dose Ordered Sig/Radha Route Start Time Stop Time Status Last Admin Sodium Chloride 1,000 ml @ 75 mls/hr [id number] IV 01/10/18 21:32 01/15/18 08:23 (NS Flush) 2 ml UNSCH PRN IV FLUSH 01/10/18 21:45 (NS Flush) 2 ml BID IV FLUSH 01/11/18 09:00 01/14/18 08:13 (Tylenol) 650 mg Q4H PRN PO 01/10/18 21:45 01/11/18 00:28 (Zofran Inj) 4 mg Q6H PRN IVP 01/10/18 21:45 (Heparin Inj) 5,000 units Q8H SQ 01/10/18 21:45 01/15/18 05:28 (Narcan Inj) 0.4 mg UNSCH PRN IV PUSH 01/10/18 21:45 (Swapna-Colace) 1 tab BID PO 01/11/18 09:00 01/14/18 08:13 (Milk Of Magnesia Liq) 30 ml Q12H PRN PO 01/10/18 21:45 (Senokot) 17.2 mg Q12H PRN PO 01/10/18 21:45 (Dulcolax Supp) 10 mg DAILY PRN RECTAL 01/10/18 21:45 (Lactulose Liq) 30 ml DAILY PRN PO 01/10/18 21:45 (Norvasc) 10 mg DAILY PO 01/11/18 09:00 01/15/18 08:07 (Plavix) 75 mg DAILY PO 01/11/18 09:00 01/15/18 08:07 (Cardura) 4 mg HS PO 01/11/18 21:00 01/14/18 21:24 (Prinivil) 10 mg DAILY PO 01/11/18 09:00 01/15/18 08:07 (Pravachol) 40 mg DAILY PO 01/11/18 09:00 01/15/18 08:08 (Flagyl) 500 mg Q8HR PO 01/10/18 22:15 01/15/18 05:28 A/P Assessment and Plan (1) Sepsis ICD Code: A41.9 - Sepsis, unspecified organism Status: Acute (2) C. difficile colitis ICD Code: A04.72 - Enterocolitis due to Clostridium difficile, not specified as recurrent (3) Encephalopathy acute ICD Code: G93.40 - Encephalopathy, unspecified Status: Acute 87-year-old male admitted with sepsis secondary to C. difficile colitis and acute and worsening encephalopathy. Patient with recent ischemic stroke. 1. Sepsis/C. difficile Patient with leukocytosis, elevated lactic acid, fever and tachycardia Given broad-spectrum antibiotics in the emergency department C. difficile toxin positive on PO Flagyl as per ID specialist follow off antibiotics. afebrile improved Leukocytosis. 2. Acute encephalopathy Improved. Likely secondary to above CT head negative for acute process Neurology specialist following and no further management. EEG negative. 3. Acute kidney injury Improved. 4. Hypertension/hyperlipidemia/coronary artery disease Continue home medications 5. Recent CVA CT head with no acute process 6. electrolyte derangement replaced and following will follow new Potassium replaced and patient may be discharged after replacement for today. His and she wants him discharged to SNF. order placed and bulk plant manager working on this issues. Discharge Planning Expected for later today. Thaddeus Velazquez MD Jan 15, 2018 09:30
[2018-01-15] MEDS ORDERED: METR-1 PO (09:32)
--- NOTE | 2018-01-15 09:36 | HHI.DS ---
Discharge Summary Admission Date Jan 10, 2018 at 20:27 Discharge Date: Jan 15, 2018 Admitting Diagnosis altered mental status, sepsis (1) Sepsis ICD Code: A41.9 - Sepsis, unspecified organism Diagnosis: Principal Status: Acute (2) C. difficile colitis ICD Code: A04.72 - Enterocolitis due to Clostridium difficile, not specified as recurrent Diagnosis: Principal Status: Acute (3) Encephalopathy acute ICD Code: G93.40 - Encephalopathy, unspecified Diagnosis: Principal Status: Acute Procedures None Brief History - From Admission 87-year-old male with a past medical history significant for hypertension, hyperlipidemia, recent CVA on 12/31/17, CAD and peripheral vascular disease was brought from his group home facility for evaluation of altered mental status. The patient's is bedside and provides history. She states that since the patient's CVA he has had difficulty with ambulation and memory however he has been alert and oriented. She reports that when she arrived to the custodial today the patient was nonresponsive. The custodial has been unable to get him to eat. During her interview, the patient will respond to my questions however he is alert and oriented 1. The patient denies any pain. No chest pain or shortness of breath. No abdominal pain. No nausea/ vomiting. The reports that the custodial stated he had diarrhea. No reported fevers/chills. CBC/BMP: 01/13/18 0505 01/14/18 0501 Significant Findings Laboratory Tests Test 01/13/18 05:05 01/14/18 05:01 01/15/18 08:27 Red Blood Count 3.86 MIL/MM3 (4.50-5.90) Hemoglobin 11.5 GM/DL (13.0-17.0) Hematocrit 34.2 % (39.0-51.0) Monocytes (%) (Auto) 10.4 % (0.0-8.0) Eosinophils (%) (Auto) 6.1 % (0.0-4.0) Eosinophils # (Auto) 0.5 TH/MM3 (0-0.4) Random Glucose 124 MG/DL (74-106) Total Protein 5.6 GM/DL (6.4-8.2) Albumin 2.4 GM/DL (3.4-5.0) Calcium Level 7.6 MG/DL (8.5-10.1) 8.0 MG/DL (8.5-10.1) Potassium Level 3.0 MEQ/L (3.5-5.1) 3.0 MEQ/L (3.5-5.1) Chloride Level 110 MEQ/L (98-107) Estimat Glomerular Filtration Rate 71 ML/MIN (>89) 75 ML/MIN (>89) Ammonia 34 MCMOL/L (11-32) Imaging Last Impressions Brain MRI 01/12/18 0000 Signed Impressions: Service Date/Time: Friday, January 12, 2018 09:42 - CONCLUSION: Interval improvement. Restricted diffusion described previously has resolved. Edema remains. The jugular size continues to be appropriate. Serial studies to resolution resolution are suggested to exclude neoplastic process. MR with contrast in 6 weeks is suggested. Navin Ventura MD FACR Chest X-Ray 01/10/18 1732 Signed Impressions: Service Date/Time: Wednesday, January 10, 2018 18:44 - CONCLUSION: No acute disease. Lebron Arias MD Head CT 01/10/18 0000 Signed Impressions: Service Date/Time: Wednesday, January 10, 2018 19:28 - CONCLUSION: 1. No acute abnormality. 2. Atrophy. Lebron Arias MD PE at Discharge GENERAL: Alert and oriented x 2, no acute distress. CARDIOVASCULAR: Normal rate and regular rhythm RESPIRATORY: decreased breath sounds bilateral, no wheezing or crackles. GASTROINTESTINAL: Abdomen soft, Normal active bowel sounds MUSCULOSKELETAL: Extremities without cyanosis, or edema. NEURO:alert and oriented x 2 , No focal deficits. 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 At the time of his admission, patient had a fever 101.4, leukocytosis with white count of 16.9, tachycardia, lactic acidosis with level of 2.1 and acute renal failure consistent with severe sepsis. was found Unresponsive in [facility], and Not eating, Hospitalized due to Sepsis and C Diff Colitis, CT of the head was negative for any acute process. requested EEG and MRI by Neurology specialist due to Encephalopathy, seen by ID specialist with diagnosis of Severe Sepsis, and Cute renal failure secondary to Dehydration and C Diff colitis, CXR was negative, Electrolyte derangement, recommended to continue Flagyl and complete 10 days, if remains encephalopathic consider switching to oral Vancomycin and signed off the case. 01/14: Improving his mentation discussed with his in the room, with nurse and on MDR, as per his wants him discharged to SNF was placed order for discharge and Lumber Carrier Operator working on discharge probable for tomorrow in am, replacing electrolytes today, afebrile and improved Leukocytosis off antibiotics as per ID specialist. 01/15: stable discussed with patient he is oriented in place and person, no nausea, vomit or diarrhea, replaced electrolytes yesterday. Assessment and Plan 87-year-old male admitted with sepsis secondary to C. difficile colitis and acute and worsening encephalopathy. Patient with recent ischemic stroke. 1. Sepsis/C. difficile Patient with leukocytosis, elevated lactic acid, fever and tachycardia Given broad-spectrum antibiotics in the emergency department C. difficile toxin positive on PO Flagyl as per ID specialist follow off antibiotics. afebrile improved Leukocytosis. 2. Acute encephalopathy Improved. Likely secondary to above CT head negative for acute process Neurology specialist following and no further management. EEG negative. 3. Acute kidney injury Improved. 4. Hypertension/hyperlipidemia/coronary artery disease Continue home medications 5. Recent CVA CT head with no acute process 6. electrolyte derangement replaced and following will follow new Potassium replaced and patient may be discharged after replacement for today. His and she wants him discharged to SNF. order placed and field account manager working on this issues. Discharge Planning Expected for later today. Pt Condition on Discharge: Stable Discharge Disposition: Discharge to SNF Discharge Time: > 30 minutes Discharge Instructions DIET: Follow Instructions for: Heart Healthy Diet Activities you can perform: Regular-No Restrictions Thaddeus Velazquez MD Jan 15, 2018 09:36
[2018-01-15] MEDS ORDERED: POTASSIUM CHLORIDE 20 MEQ CONTROLLED RELEASE TAB PO ONE (12:00)
[2018-01-15] MEDS: DOXAZOSIN MESYLATE 4 MG TAB PO SCH (21:02)
[2018-01-16] VITALS (9 sets, daily range): BP systolic 134–160; BP diastolic 63–70; PULSE 60–91; RESP 15–22; TEMP 97.7–98.8; O2SAT 94–98
[2018-01-16] MEDS: metroNIDAZOLE 500 MG TAB PO SCH ×3 (04:47→20:38)
[2018-01-16] MEDS: HEPARIN SODIUM - SQ 10,000 UNITS/ML VIAL SQ SCH ×3 (04:47→20:38)
[2018-01-16] MEDS: CLOPIDOGREL 75 MG TAB PO SCH (09:00)
[2018-01-16] MEDS: DOCUSATE SODIUM 50 MG/SENNA 8.6 MG TAB PO SCH ×2 (09:00→20:37)
[2018-01-16] MEDS: SODIUM CHLORIDE 0.9% FLUSH 10 ML FLUSH IV FLUSH SCH ×2 (09:00→20:38)
[2018-01-16] MEDS: LISINOPRIL 5 MG TAB PO SCH (09:01)
[2018-01-16] MEDS: PRAVASTATIN SOD 40 MG TAB PO SCH (09:01)
[2018-01-16] MEDS: SODIUM CHLOR 0.9% 1000 ML INJ 1,000 ML IV SCH (11:36)
--- NOTE | 2018-01-16 16:11 | HHI.PR ---
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 At the time of his admission, patient had a fever 101.4, leukocytosis with white count of 16.9, tachycardia, lactic acidosis with level of 2.1 and acute renal failure consistent with severe sepsis. was found Unresponsive in [facility], and Not eating, Hospitalized due to Sepsis and C Diff Colitis, CT of the head was negative for any acute process. requested EEG and MRI by Neurology specialist due to Encephalopathy, seen by ID specialist with diagnosis of Severe Sepsis, and Cute renal failure secondary to Dehydration and C Diff colitis, CXR was negative, Electrolyte derangement, recommended to continue Flagyl and complete 10 days, if remains encephalopathic consider switching to oral Vancomycin and signed off the case. 01/14: Improving his mentation discussed with his in the room, with nurse and on MDR, as per his wants him discharged to SNF was placed order for discharge and Course Instructor working on discharge probable for tomorrow in am, replacing electrolytes today, afebrile and improved Leukocytosis off antibiotics as per ID specialist. 01/15: stable discussed with patient he is oriented in place and person, replaced electrolytes yesterday. 01/16: Seen in his bedroom, no nausea, vomit or diarrhea, Discussed with his Mrs. Mireille Nguyen She states she wants to see her Sepsis cleared, he has His Leukocytosis improved, afebrile, blood cultures negative, but because the Discharged was appealed will await for medicare decision, he is able to talk and has better Mental status. no nausea, vomit or diarrhea, Once the patient has Improved condition, remain in house increase the possibility of falls and infections but is not in my hands to help him with this. Objective Vital Signs Date Time Temp Pulse Resp B/P (MAP) Pulse Ox O2 Delivery O2 Flow Rate FiO2 01/16/18 12:18 98 Nasal Cannula 2.00 01/16/18 12:00 94 Nasal Cannula 2.00 01/16/18 12:00 98.0 73 16 153/67 (95) 94 01/16/18 12:00 62 01/16/18 08:00 91 01/16/18 08:00 97.7 71 17 134/64 (87) 98 01/16/18 08:00 98 Nasal Cannula 2.00 01/16/18 04:41 71 01/16/18 04:00 Nasal Cannula 3.00 01/16/18 04:00 98.8 64 22 146/63 (90) 97 01/16/18 01:48 60 01/16/18 00:00 Nasal Cannula 3.00 01/16/18 00:00 98.8 64 22 146/63 (90) 97 01/15/18 20:31 Nasal Cannula 3.00 01/15/18 20:00 Nasal Cannula 2.00 01/15/18 20:00 86 01/15/18 20:00 98.0 87 22 156/72 (100) 98 01/15/18 17:52 70 01/15/18 17:52 97 Nasal Cannula 2.00 I/O 01/15/18 01/15/18 01/15/18 01/16/18 01/16/18 01/16/18 07:00 15:00 23:00 07:00 15:00 23:00 Intake Total 440 ml 500 ml 220 ml Output Total 200 ml 1000 ml Balance 240 ml -500 ml 220 ml Intake Oral 440 ml 500 ml 220 ml Output Urine Total 200 ml 1000 ml # Voids 2 # Bowel Movements 1 1 Result Diagram: 01/13/18 0505 01/15/18 0827 Imaging Last Impressions Brain MRI 01/12/18 0000 Signed Impressions: Service Date/Time: Friday, January 12, 2018 09:42 - CONCLUSION: Interval improvement. Restricted diffusion described previously has resolved. Edema remains. The jugular size continues to be appropriate. Serial studies to resolution resolution are suggested to exclude neoplastic process. MR with contrast in 6 weeks is suggested. Navin Ventura MD FACR Chest X-Ray 01/10/18 1732 Signed Impressions: Service Date/Time: Wednesday, January 10, 2018 18:44 - CONCLUSION: No acute disease. Lebron Arias MD Head CT 01/10/18 0000 Signed Impressions: Service Date/Time: Wednesday, January 10, 2018 19:28 - CONCLUSION: 1. No acute abnormality. 2. Atrophy. Lebron Arias MD Procedures None Other Results Laboratory Tests Test 01/10/18 17:48 01/10/18 17:50 01/10/18 19:00 01/10/18 23:35 Prothrombin Time 11.5 SEC Prothromb Time International Ratio 1.1 RATIO Activated Partial Thromboplast Time 24.5 SEC Urine Color YELLOW Urine Turbidity CLEAR Urine pH 5.0 Urine Specific [place] 1.021 Urine Protein TRACE mg/dL Urine Glucose (UA) NEG mg/dL Urine Ketones NEG mg/dL Urine Occult Blood SMALL Urine Nitrite NEG Urine Bilirubin NEG Urine Urobilinogen LESS THAN 2.0 MG/DL Urine Leukocyte Esterase NEG Urine RBC 1 /hpf Urine WBC LESS THAN 1 /hpf Urine Squamous Epithelial Cells <1 /hpf Urine Mucus FEW /lpf Microscopic Urinalysis Comment CATH-CULT NOT IND Stool C. difficile Toxin (PCR) POSITIVE Stl C. difficile Toxin Epiderm 027 PRESUMPTIVE POSITIVE Protein Corrected Calcium 8.1 MG/DL Total Creatine Kinase 300 U/L Creatine Kinase MB 1.3 NG/ML Troponin I 0.03 NG/ML Lipase 64 U/L Lactic Acid Level 1.2 mmol/L Test 01/11/18 09:55 01/13/18 05:05 01/14/18 05:01 01/15/18 08:27 Blood Gas Puncture Site RT RADIAL Blood Gas Patient Temperature 98.6 Blood Gas HCO3 24 mmol/L Blood Gas Base Excess 0.1 mmol/L Blood Gas Oxygen Saturation 97 % Arterial Blood pH 7.39 Arterial Blood Partial Pressure CO2 41 mmHg Arterial Blood Partial Pressure O2 130 mmHg Arterial Blood Oxygen Content 15.9 Vol % Arterial Blood Carboxyhemoglobin 1.1 % Arterial Blood Methemoglobin 0.9 % Blood Gas Hemoglobin 11.5 G/DL Oxygen Delivery Device NV Blood Gas Liter Flow 3 L/M White Blood Count 8.3 TH/MM3 Red Blood Count 3.86 MIL/MM3 Hemoglobin 11.5 GM/DL Hematocrit 34.2 % Mean Corpuscular Volume 88.7 FL Mean Corpuscular Hemoglobin 29.8 PG Mean Corpuscular Hemoglobin Concent 33.6 % Red Cell Distribution Width 13.7 % Platelet Count 279 TH/MM3 Mean Platelet Volume 8.0 FL Neutrophils (%) (Auto) 64.5 % Lymphocytes (%) (Auto) 18.3 % Monocytes (%) (Auto) 10.4 % Eosinophils (%) (Auto) 6.1 % Basophils (%) (Auto) 0.7 % Neutrophils # (Auto) 5.3 TH/MM3 Lymphocytes # (Auto) 1.5 TH/MM3 Monocytes # (Auto) 0.9 TH/MM3 Eosinophils # (Auto) 0.5 TH/MM3 Basophils # (Auto) 0.1 TH/MM3 CBC Comment DIFF FINAL Differential Comment Phosphorus Level 2.6 MG/DL Blood Urea Nitrogen 12 MG/DL 9 MG/DL Creatinine 0.99 MG/DL 0.95 MG/DL Random Glucose 124 MG/DL 105 MG/DL Total Protein 5.6 GM/DL Albumin 2.4 GM/DL Calcium Level 7.6 MG/DL 8.0 MG/DL Alkaline Phosphatase 48 U/L Aspartate Amino Transf (AST/SGOT) 25 U/L Alanine Aminotransferase (ALT/SGPT) 27 U/L Total Bilirubin 0.3 MG/DL Direct Bilirubin 0.1 MG/DL Sodium Level 145 MEQ/L 142 MEQ/L Potassium Level 3.0 MEQ/L 3.0 MEQ/L 3.5 MEQ/L Chloride Level 110 MEQ/L 105 MEQ/L Carbon Dioxide Level 28.6 MEQ/L 30.3 MEQ/L Indirect Bilirubin 0.2 MG/DL Anion Gap 7 MEQ/L Estimat Glomerular Filtration Rate 75 ML/MIN Hemoglobin A1c 6.0 % Magnesium Level 1.9 MG/DL Ammonia 34 MCMOL/L Objective Remarks GENERAL: No acute distress. CARDIOVASCULAR: Normal rate and regular rhythm RESPIRATORY: Breath sounds clear and no wheezing or crackles. GASTROINTESTINAL: Abdomen soft, Normal active bowel sounds MUSCULOSKELETAL: Extremities without cyanosis, or edema. NEURO: Alert and oriented in place and person. Medications and IVs Current Medications Medications (Trade) Dose Ordered Sig/Radha Route Start Time Stop Time Status Last Admin Sodium Chloride 1,000 ml @ 75 mls/hr [id number] IV 01/10/18 21:32 01/16/18 11:36 (NS Flush) 2 ml UNSCH PRN IV FLUSH 01/10/18 21:45 (NS Flush) 2 ml BID IV FLUSH 01/11/18 09:00 01/16/18 09:00 (Tylenol) 650 mg Q4H PRN PO 01/10/18 21:45 01/11/18 00:28 (Zofran Inj) 4 mg Q6H PRN IVP 01/10/18 21:45 (Heparin Inj) 5,000 units Q8H SQ 01/10/18 21:45 01/16/18 13:45 (Narcan Inj) 0.4 mg UNSCH PRN IV PUSH 01/10/18 21:45 (Swapna-Colace) 1 tab BID PO 01/11/18 09:00 01/14/18 08:13 (Milk Of Magnesia Liq) 30 ml Q12H PRN PO 01/10/18 21:45 (Senokot) 17.2 mg Q12H PRN PO 01/10/18 21:45 (Dulcolax Supp) 10 mg DAILY PRN RECTAL 01/10/18 21:45 (Lactulose Liq) 30 ml DAILY PRN PO 01/10/18 21:45 (Norvasc) 10 mg DAILY PO 01/11/18 09:00 01/16/18 09:00 (Plavix) 75 mg DAILY PO 01/11/18 09:00 01/16/18 09:00 (Cardura) 4 mg HS PO 01/11/18 21:00 01/15/18 21:02 (Prinivil) 10 mg DAILY PO 01/11/18 09:00 01/16/18 09:01 (Pravachol) 40 mg DAILY PO 01/11/18 09:00 01/16/18 09:01 (Flagyl) 500 mg Q8HR PO 01/10/18 22:15 01/16/18 14:57 A/P Assessment and Plan (1) Sepsis ICD Code: A41.9 - Sepsis, unspecified organism Status: Acute (2) C. difficile colitis ICD Code: A04.72 - Enterocolitis due to Clostridium difficile, not specified as recurrent (3) Encephalopathy acute ICD Code: G93.40 - Encephalopathy, unspecified Status: Acute 87-year-old male admitted with sepsis secondary to C. difficile colitis and acute and worsening encephalopathy. Patient with recent ischemic stroke. 1. Sepsis/C. difficile Patient with leukocytosis, elevated lactic acid, fever and tachycardia Given broad-spectrum antibiotics in the emergency department C. difficile toxin positive on PO Flagyl as per ID specialist follow off antibiotics. afebrile improved Leukocytosis. afebrile. 2. Acute encephalopathy Improving Likely secondary to above CT head negative for acute process Neurology specialist following and no further management. EEG negative. 3. Acute kidney injury Improved. 4. Hypertension/hyperlipidemia/coronary artery disease Continue home medications 5. Recent CVA CT head with no acute process 6. electrolyte derangement replaced and following. Discussed with his Mrs. Patrick Kendrick she states she wants the Sepsis to be cleared before going to SNF will await for final disposition by Medicare will continue to follow laboratory in am tomorrow. She states that the patient's Son is not at home at this time will try to talk with him tomorrow. discussed with nurse Miss Barraza and the patient is improving his condition. Discharge Planning Discharge on Hold Thaddeus Velazquez MD Jan 16, 2018 16:11
[2018-01-16] MEDS: DOXAZOSIN MESYLATE 4 MG TAB PO SCH (20:38)
[2018-01-17] VITALS (11 sets, daily range): BP systolic 141–167; BP diastolic 65–76; PULSE 60–82; RESP 16–20; TEMP 97.1–98.3; O2SAT 93–97
[2018-01-17] MEDS: SODIUM CHLOR 0.9% 1000 ML INJ 1,000 ML IV SCH (04:00)
[2018-01-17] MEDS: metroNIDAZOLE 500 MG TAB PO SCH ×3 (04:51→21:52)
[2018-01-17] MEDS: HEPARIN SODIUM - SQ 10,000 UNITS/ML VIAL SQ SCH ×3 (04:52→21:52)
[2018-01-17 07:18] LABS: AUTOMATED NEUTROPHIL # 5.5 TH/MM3 (1.8-7.7); BASOPHIL # 0.1 TH/MM3 (0-0.2); BASOPHIL % 0.7 % (0.0-2.0); EOSINOPHIL # 0.6 TH/MM3 (0-0.4); EOSINOPHIL % 6.5 % (0.0-4.0); HEMOGLOBIN 12.4 GM/DL (13.0-17.0); LYMPH % 18.7 % (9.0-44.0); LYMPHOCYTE # 1.6 TH/MM3 (1.0-4.8); MEAN CELL VOLUME 88.6 FL (80.0-100.0); MEAN CORPUSCULAR HEMOGLOBIN 29.7 PG (27.0-34.0); MEAN CORPUSCULAR HGB CONC 33.6 % (32.0-36.0); MEAN PLATELET VOLUME 8.5 FL (7.0-11.0); MONO % 10.9 % (0.0-8.0); NEUT % 63.2 % (16.0-70.0); PLATELET COUNT 336 TH/MM3 (150-450); RED BLOOD COUNT 4.18 MIL/MM3 (4.50-5.90); RED CELL DISTRIBUTION WIDTH 13.6 % (11.6-17.2); WHITE BLOOD COUNT 8.7 TH/MM3 (4.0-11.0)
[2018-01-17 07:40] LABS: BICARBONATE 29.6 MEQ/L (21.0-32.0); CALCIUM 8.2 MG/DL (8.5-10.1); CREATININE 0.89 MG/DL (0.60-1.30); MAGNESIUM 1.9 MG/DL (1.5-2.5)
--- NOTE | 2018-01-17 08:48 | HHI.PR ---
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 At the time of his admission, patient had a fever 101.4, leukocytosis with white count of 16.9, tachycardia, lactic acidosis with level of 2.1 and acute renal failure consistent with severe sepsis. [facility], and Not eating, Hospitalized due to Sepsis and C Diff Colitis, CT of the head was negative for any acute process. requested EEG and MRI by Neurology specialist due to Encephalopathy, seen by ID specialist with diagnosis of Severe Sepsis, and Cute renal failure secondary to Dehydration and C Diff colitis, CXR was negative, Electrolyte derangement, recommended to continue Flagyl and complete 10 days, if remains encephalopathic consider switching to oral Vancomycin and signed off the case. 01/14: Improving his mentation discussed with his in the room, with nurse and on MDR, as per his wants him discharged to SNF was placed order for discharge and System Development Manager working on discharge probable for tomorrow in am, replacing electrolytes today, afebrile and improved Leukocytosis off antibiotics as per ID specialist. 01/15: stable discussed with patient he is oriented in place and person, replaced electrolytes yesterday. 01/16: Seen in his bedroom, no nausea, vomit or diarrhea, Discussed with his Mrs. Mireille Nguyen She states she wants to see her Sepsis cleared, he has His Leukocytosis improved, afebrile, blood cultures negative, but because the Discharged was appealed will await for medicare decision, he is able to talk and has better Mental status. no nausea, vomit or diarrhea, Once the patient has Improved condition, remain in house increase the possibility of falls and infections but is not in my hands to help him with this. 01/17: Stable Oriented in Place and Person, no nausea, vomit or diarrhea but has not appetite at this time. Discussed through the phone with his Son Mr. John Duncan explained, he has no bowel movements on 01/14 and 01/15 and had to receive Colace to make him had a BM, he will need to continue management for C Diff but is not indicated to keep a patient inhouse for this management. Objective Vital Signs Date Time Temp Pulse Resp B/P (MAP) Pulse Ox O2 Delivery O2 Flow Rate FiO2 01/17/18 04:00 98.2 70 20 160/74 (102) 97 01/17/18 04:00 Nasal Cannula 3.00 01/17/18 04:00 60 01/17/18 00:00 97.9 82 20 151/71 (97) 93 01/17/18 00:00 Nasal Cannula 2.00 01/17/18 00:00 65 01/16/18 20:00 74 01/16/18 20:00 Nasal Cannula 2.00 01/16/18 20:00 98.4 78 20 160/70 (100) 96 01/16/18 17:56 94 Nasal Cannula 2.00 01/16/18 16:00 98.2 76 15 147/65 (92) 95 01/16/18 12:18 98 Nasal Cannula 2.00 01/16/18 12:00 94 Nasal Cannula 2.00 01/16/18 12:00 98.0 73 16 153/67 (95) 94 01/16/18 12:00 62 I/O 01/16/18 01/16/18 01/16/18 01/17/18 01/17/18 01/17/18 07:00 15:00 23:00 07:00 15:00 23:00 Intake Total 220 ml 480 ml 1470 ml Balance 220 ml 480 ml 1470 ml Intake Oral 220 ml 480 ml 320 ml IV Total 1150 ml # Voids 2 5 3 # Bowel Movements 1 1 2 Result Diagram: 01/17/18 0613 01/17/18 0615 Imaging Last Impressions Brain MRI 01/12/18 0000 Signed Impressions: Service Date/Time: Friday, January 12, 2018 09:42 - CONCLUSION: Interval improvement. Restricted diffusion described previously has resolved. Edema remains. The jugular size continues to be appropriate. Serial studies to resolution resolution are suggested to exclude neoplastic process. MR with contrast in 6 weeks is suggested. Navin Ventura MD FACR Chest X-Ray 01/10/18 [id number] Signed Impressions: Service Date/Time: Wednesday, January 10, 2018 18:44 - CONCLUSION: No acute disease. Lebron Arias MD Head CT 01/10/18 0000 Signed Impressions: Service Date/Time: Wednesday, January 10, 2018 19:28 - CONCLUSION: 1. No acute abnormality. 2. Atrophy. Lebron Arias MD Procedures None Other Results Laboratory Tests Test 01/10/18 17:48 01/10/18 17:50 01/10/18 19:00 01/10/18 23:35 Prothrombin Time 11.5 SEC Prothromb Time International Ratio 1.1 RATIO Activated Partial Thromboplast Time 24.5 SEC Urine Color YELLOW Urine Turbidity CLEAR Urine pH 5.0 Urine Specific [place] 1.021 Urine Protein TRACE mg/dL Urine Glucose (UA) NEG mg/dL Urine Ketones NEG mg/dL Urine Occult Blood SMALL Urine Nitrite NEG Urine Bilirubin NEG Urine Urobilinogen LESS THAN 2.0 MG/DL Urine Leukocyte Esterase NEG Urine RBC 1 /hpf Urine WBC LESS THAN 1 /hpf Urine Squamous Epithelial Cells <1 /hpf Urine Mucus FEW /lpf Microscopic Urinalysis Comment CATH-CULT NOT IND Stool C. difficile Toxin (PCR) POSITIVE Stl C. difficile Toxin Epiderm 027 PRESUMPTIVE POSITIVE Protein Corrected Calcium 8.1 MG/DL Total Creatine Kinase 300 U/L Creatine Kinase MB 1.3 NG/ML Troponin I 0.03 NG/ML Lipase 64 U/L Lactic Acid Level 1.2 mmol/L Test 01/11/18 09:55 01/13/18 05:05 01/14/18 05:01 01/17/18 06:13 Blood Gas Puncture Site RT RADIAL Blood Gas Patient Temperature 98.6 Blood Gas HCO3 24 mmol/L Blood Gas Base Excess 0.1 mmol/L Blood Gas Oxygen Saturation 97 % Arterial Blood pH 7.39 Arterial Blood Partial Pressure CO2 41 mmHg Arterial Blood Partial Pressure O2 130 mmHg Arterial Blood Oxygen Content 15.9 Vol % Arterial Blood Carboxyhemoglobin 1.1 % Arterial Blood Methemoglobin 0.9 % Blood Gas Hemoglobin 11.5 G/DL Oxygen Delivery Device NV Blood Gas Liter Flow 3 L/M Phosphorus Level 2.6 MG/DL Blood Urea Nitrogen 12 MG/DL Creatinine 0.99 MG/DL Random Glucose 124 MG/DL Total Protein 5.6 GM/DL Albumin 2.4 GM/DL Calcium Level 7.6 MG/DL Alkaline Phosphatase 48 U/L Aspartate Amino Transf (AST/SGOT) 25 U/L Alanine Aminotransferase (ALT/SGPT) 27 U/L Total Bilirubin 0.3 MG/DL Direct Bilirubin 0.1 MG/DL Sodium Level 145 MEQ/L Potassium Level 3.0 MEQ/L Chloride Level 110 MEQ/L Carbon Dioxide Level 28.6 MEQ/L Indirect Bilirubin 0.2 MG/DL Hemoglobin A1c 6.0 % Ammonia 34 MCMOL/L White Blood Count 8.7 TH/MM3 Red Blood Count 4.18 MIL/MM3 Hemoglobin 12.4 GM/DL Hematocrit 37.0 % Mean Corpuscular Volume 88.6 FL Mean Corpuscular Hemoglobin 29.7 PG Mean Corpuscular Hemoglobin Concent 33.6 % Red Cell Distribution Width 13.6 % Platelet Count 336 TH/MM3 Mean Platelet Volume 8.5 FL Neutrophils (%) (Auto) 63.2 % Lymphocytes (%) (Auto) 18.7 % Monocytes (%) (Auto) 10.9 % Eosinophils (%) (Auto) 6.5 % Basophils (%) (Auto) 0.7 % Neutrophils # (Auto) 5.5 TH/MM3 Lymphocytes # (Auto) 1.6 TH/MM3 Monocytes # (Auto) 1.0 TH/MM3 Eosinophils # (Auto) 0.6 TH/MM3 Basophils # (Auto) 0.1 TH/MM3 CBC Comment DIFF FINAL Differential Comment Test 01/17/18 06:15 Blood Urea Nitrogen 9 MG/DL Creatinine 0.89 MG/DL Random Glucose 98 MG/DL Calcium Level 8.2 MG/DL Magnesium Level 1.9 MG/DL Sodium Level 141 MEQ/L Potassium Level 3.6 MEQ/L Chloride Level 103 MEQ/L Carbon Dioxide Level 29.6 MEQ/L Anion Gap 8 MEQ/L Estimat Glomerular Filtration Rate 81 ML/MIN Objective Remarks GENERAL: No acute distress. CARDIOVASCULAR: Normal rate and regular rhythm RESPIRATORY: Breath sounds clear and no wheezing or crackles. GASTROINTESTINAL: Abdomen soft, Normal active bowel sounds MUSCULOSKELETAL: Extremities without cyanosis, or edema. NEURO: Alert and oriented in place and person. Medications and IVs Current Medications Medications (Trade) Dose Ordered Sig/Radha Route Start Time Stop Time Status Last Admin Sodium Chloride 1,000 ml @ 75 mls/hr [id number] IV 01/10/18 21:32 01/17/18 04:00 (NS Flush) 2 ml UNSCH PRN IV FLUSH 01/10/18 21:45 (NS Flush) 2 ml BID IV FLUSH 01/11/18 09:00 01/16/18 09:00 (Tylenol) 650 mg Q4H PRN PO 01/10/18 21:45 01/11/18 00:28 (Zofran Inj) 4 mg Q6H PRN IVP 01/10/18 21:45 (Heparin Inj) 5,000 units Q8H SQ 01/10/18 21:45 01/17/18 04:52 (Narcan Inj) 0.4 mg UNSCH PRN IV PUSH 01/10/18 21:45 (Swapna-Colace) 1 tab BID PO 01/11/18 09:00 01/14/18 08:13 (Milk Of Magnesia Liq) 30 ml Q12H PRN PO 01/10/18 21:45 (Senokot) 17.2 mg Q12H PRN PO 01/10/18 21:45 (Dulcolax Supp) 10 mg DAILY PRN RECTAL 01/10/18 21:45 (Lactulose Liq) 30 ml DAILY PRN PO 01/10/18 21:45 (Norvasc) 10 mg DAILY PO 01/11/18 09:00 01/16/18 09:00 (Plavix) 75 mg DAILY PO 01/11/18 09:00 01/16/18 09:00 (Cardura) 4 mg HS PO 01/11/18 21:00 01/16/18 20:38 (Prinivil) 10 mg DAILY PO 01/11/18 09:00 01/16/18 09:01 (Pravachol) 40 mg DAILY PO 01/11/18 09:00 01/16/18 09:01 (Flagyl) 500 mg Q8HR PO 01/10/18 22:15 01/17/18 04:51 A/P Assessment and Plan (1) Sepsis ICD Code: A41.9 - Sepsis, unspecified organism Status: Acute (2) C. difficile colitis ICD Code: A04.72 - Enterocolitis due to Clostridium difficile, not specified as recurrent (3) Encephalopathy acute ICD Code: G93.40 - Encephalopathy, unspecified Status: Acute 87-year-old male admitted with sepsis secondary to C. difficile colitis and acute and worsening encephalopathy. Patient with recent ischemic stroke. 1. Sepsis/C. difficile Patient with leukocytosis, elevated lactic acid, fever and tachycardia Given broad-spectrum antibiotics in the emergency department C. difficile toxin positive on PO Flagyl as per ID specialist follow off antibiotics. afebrile improved Leukocytosis. afebrile. 2. Acute encephalopathy Improving Likely secondary to above CT head negative for acute process Neurology specialist following and no further management. EEG negative. 3. Acute kidney injury Improved. 4. Hypertension/hyperlipidemia/coronary artery disease Continue home medications 5. Recent CVA CT head with no acute process 6. electrolyte derangement replaced Discussed through the phone with his Son Mr. John Duncan explained, he has no bowel movements on 01/14 and 01/15 and had to receive Colace to make him had a BM, he will need to continue management for C Diff but is not indicated to keep a patient inhouse for this management. Keep the patient Hospitalized increase the risk for another infections, and falls but the Discharge is appealed and he will continue management in house. he needs Rehabilitation in Rehab facility. Discharge Planning Discharge on Hold Thaddeus Velazquez MD Jan 17, 2018 08:48
[2018-01-17] MEDS: DOCUSATE SODIUM 50 MG/SENNA 8.6 MG TAB PO SCH ×2 (09:00→21:52)
[2018-01-17] MEDS: CLOPIDOGREL 75 MG TAB PO SCH (11:41)
[2018-01-17] MEDS: PRAVASTATIN SOD 40 MG TAB PO SCH (11:41)
[2018-01-17] MEDS: LISINOPRIL 5 MG TAB PO SCH (11:41)
[2018-01-17] MEDS: MAGNESIUM OXIDE 400 MG TAB PO SCH (11:41)
[2018-01-17] MEDS: SODIUM CHLORIDE 0.9% FLUSH 10 ML FLUSH IV FLUSH SCH ×2 (11:42→21:00)
[2018-01-17] MEDS: POTASSIUM CHLORIDE 20 MEQ CONTROLLED RELEASE TAB PO SCH (11:42)
[2018-01-17] MEDS: DOXAZOSIN MESYLATE 4 MG TAB PO SCH (21:52)
[2018-01-18] VITALS (8 sets, daily range): BP systolic 124–176; BP diastolic 64–76; PULSE 67–96; RESP 16–18; TEMP 97.3–98.7; O2SAT 92–95
[2018-01-18] MEDS: HEPARIN SODIUM - SQ 10,000 UNITS/ML VIAL SQ SCH ×2 (05:45→15:09)
[2018-01-18] MEDS: metroNIDAZOLE 500 MG TAB PO SCH ×2 (06:00→15:09)
--- NOTE | 2018-01-18 08:18 | HHI.PR ---
Subjective Remarks BP 141/68 awake and alert, no complains, oriented to person, interactive, ff all commands states no nausea or vomiting, no abdominal pain denies any diarrhea Objective Vitals Vital Signs Date Time Temp Pulse Resp B/P (MAP) Pulse Ox O2 Delivery O2 Flow Rate FiO2 01/18/18 04:00 98.0 76 18 176/76 (109) 93 01/18/18 03:46 77 01/18/18 01:03 97.9 70 16 156/72 (100) 93 01/18/18 00:00 Nasal Cannula 3.00 01/17/18 23:44 75 01/17/18 21:57 Nasal Cannula 2.00 01/17/18 20:00 97.1 64 16 143/66 (91) 96 01/17/18 20:00 Nasal Cannula 3.00 01/17/18 19:42 72 01/17/18 16:02 98.3 76 18 156/68 (97) 97 01/17/18 16:00 Nasal Cannula 3.00 01/17/18 15:42 76 01/17/18 15:19 3.00 01/17/18 12:00 Nasal Cannula 3.00 01/17/18 11:56 97.9 75 18 167/76 (106) 97 01/17/18 11:18 79 01/17/18 09:03 68 I/O 01/17/18 01/17/18 01/17/18 01/18/18 01/18/18 01/18/18 07:00 15:00 23:00 07:00 15:00 23:00 Intake Total 1470 ml 360 ml Balance 1470 ml 360 ml Intake Oral 320 ml 360 ml IV Total 1150 ml # Voids 3 3 # Bowel Movements 2 1 Result Diagram: 01/17/18 0613 01/17/18 0615 Imaging Last Impressions Brain MRI 01/12/18 0000 Signed Impressions: Service Date/Time: Friday, January 12, 2018 09:42 - CONCLUSION: Interval improvement. Restricted diffusion described previously has resolved. Edema remains. The jugular size continues to be appropriate. Serial studies to resolution resolution are suggested to exclude neoplastic process. MR with contrast in 6 weeks is suggested. Navin Ventura MD FACR Chest X-Ray 01/10/18 [id number] Signed Impressions: Service Date/Time: Wednesday, January 10, 2018 18:44 - CONCLUSION: No acute disease. Lebron Arias MD Head CT 01/10/18 0000 Signed Impressions: Service Date/Time: Wednesday, January 10, 2018 19:28 - CONCLUSION: 1. No acute abnormality. 2. Atrophy. Lebron Arias MD Objective Remarks awake and alert, oriented to person and place "[facility]" but not year, ff all commands and speech clear anicteric lungs- no rales regular rhythm abdomdn- soft, good bowel sounds, nontender extremities no edema non focal Procedures None A/P Problem List: (1) Sepsis ICD Code: A41.9 - Sepsis, unspecified organism Status: Acute (2) C. difficile colitis ICD Code: A04.72 - Enterocolitis due to Clostridium difficile, not specified as recurrent Status: Acute (3) Encephalopathy acute ICD Code: G93.40 - Encephalopathy, unspecified Status: Acute Assessment and Plan 87-year-old male admitted with sepsis secondary to C. difficile colitis and acute and worsening encephalopathy. Patient with recent ischemic stroke. 1. Sepsis/C. difficile- clinically improving Patient with leukocytosis, elevated lactic acid, fever and tachycardia C. difficile toxin positive on PO Flagyl as per ID specialist follow off antibiotics. afebrile improved Leukocytosis. afebrile. 2. Acute encephalopathy Improving - exam non focal- likely with some baseline dementia Likely secondary to above CT head negative for acute process Neurology specialist following and no further management. EEG negative. 3. Acute kidney injury Improved. 4. Hypertension/hyperlipidemia/coronary artery disease Continue home medications 5. Recent CVA CT head with no acute process 6. electrolyte derangement replaced 01/17- Dr. Crawley Discussed through the phone with his Son Mr. John Duncan explained, he has no bowel movements on 01/14 and 01/15 and had to receive Colace to make him had a BM, he will need to continue management for C Diff but is not indicated to keep a patient inhouse for this management. Keep the patient Hospitalized increase the risk for another infections, and falls but the Discharge is appealed and he will continue management in house. he needs Rehabilitation in Rehab facility. Discharge Planning Discharge today- d/w [facility] - will benefit from rehab d/w with - awaiting medicare appeal by son - determination Problem Qualifiers (1) Sepsis: Qualified Codes: A41.9 - Sepsis, unspecified organism Epi Ceja MD Jan 18, 2018 08:18
[2018-01-18] MEDS: DOCUSATE SODIUM 50 MG/SENNA 8.6 MG TAB PO SCH (08:38)
[2018-01-18] MEDS: PRAVASTATIN SOD 40 MG TAB PO SCH (08:39)
[2018-01-18] MEDS: CLOPIDOGREL 75 MG TAB PO SCH (08:39)
[2018-01-18] MEDS: POTASSIUM CHLORIDE 20 MEQ CONTROLLED RELEASE TAB PO SCH (08:40)
[2018-01-18] MEDS: SODIUM CHLORIDE 0.9% FLUSH 10 ML FLUSH IV FLUSH SCH (08:40)
[2018-01-18] MEDS: LISINOPRIL 5 MG TAB PO SCH (08:40)
[2018-01-18] MEDS: MAGNESIUM OXIDE 400 MG TAB PO SCH (08:40)
== END 2018-01-18 18:29 | DRG 871 ==
LOC: NEPE 17:11 → NEDA 20:27 → N04A 23:45
PROVIDERS: ADMIT Internal Medicine; ATTEND Internal Medicine
DX: A41.4 Sepsis due to anaerobes (principal); G93.41 Metabolic encephalopathy; N17.9 Acute kidney failure, unspecified; A04.72 Enterocolitis due to Clostridium difficile, not specified as recurrent; E87.2 Acidosis; R65.20 Severe sepsis without septic shock; E78.5 Hyperlipidemia, unspecified; N40.0 Benign prostatic hyperplasia without lower urinary tract symptoms; N18.9 Chronic kidney disease, unspecified; I12.9 Hypertensive chronic kidney disease with stage 1 through stage 4 chronic kidney disease, or unspecified chronic kidney disease; E86.1 Hypovolemia; E86.0 Dehydration; I25.10 Atherosclerotic heart disease of native coronary artery without angina pectoris; G62.9 Polyneuropathy, unspecified; I73.9 Peripheral vascular disease, unspecified; E87.6 Hypokalemia; R73.9 Hyperglycemia, unspecified; F03.90 Unspecified dementia, unspecified severity, without behavioral disturbance, psychotic disturbance, mood disturbance, and anxiety; Z85.828 Personal history of other malignant neoplasm of skin; Z86.73 Personal history of transient ischemic attack (TIA), and cerebral infarction without residual deficits
CPT/HCPCS: 36600; 70450; 70551; 71045; 80048; 80053; 80076; 81001; 82140; 82550; 82552; 82805; 83036; 83605; 83690; 83735; 84100; 84132; 84484; 85025; 85610; 85730; 87040; 87493; 93005; 95819; 96365; 96367; J1644; J2543; J3370; J7030; J7050; P9612

== ENCOUNTER 2018-01-21 03:02 | Emergency (ER) | payer MEDICARE, OTHER ==
[~2018-01-21] VITALS: Ht 177.8 cm; Wt 82.0 kg
[~2018-01-21 03:02] MED LIST changes: +METR-1 PO
[2018-01-21 03:12] VITALS: BP 180/75; PULSE 87; RESP 20; TEMP 98; O2SAT 96
[2018-01-21] MEDS ORDERED: TETANUS/DIPHTHERIA TOXOID ADULT 0.5 ML VIAL IM ONE (03:15)
--- NOTE | 2018-01-21 03:20 | PD ---
HPI Chief Complaint: Fall Time Seen by Provider: 03:04 Travel History International Travel<30 days: No Contact w/Intl Traveler<30days: No Traveled to known affect area: No History of Present Illness HPI The patient is a 87-year-old male who [facility] emergency [facility] a [facility]. The patient apparently got up to use the restroom in the middle the night and slipped and fell, striking his head on the floor. The patient does have a history of dementia and is a poor historian. It is unknown if the patient had a positive loss of consciousness. The patient denies any headache, but was noted to have a laceration to the frontal forehead. The patient thinks the year is [birth year] and does not know the current president, however, he is able to tell me his name. He denies any headache, neck pain, chest pain, shortness of breath, nausea, vomiting, abdominal pain, muscular skeletal pain. Symptoms are moderate. PFSH Past Medical History Hx Anticoagulant Therapy: Yes Arthritis: No Asthma: No Autoimmune Disease: No Heart Rhythm Problems: No Cancer: Yes (BCCA) Cardiovascular Problems: Yes High Cholesterol: Yes Chemotherapy: No Chest Pain: No Congestive Heart Failure: No COPD: No Cerebrovascular Accident: No Diabetes: No Diminished Hearing: No Endocrine: No Gastrointestinal Disorders: No GERD: No Genitourinary: Yes (BPH) Headaches: No Hepatitis: No Hiatal Hernia: No Hypertension: Yes Immune Disorder: No Kidney Stones: No Musculoskeletal: No Neurologic: Yes (STROKE) Psychiatric: No Reproductive: No Respiratory: No Migraines: No Radiation Therapy: No Renal Failure: No Seizures: No Sleep Apnea: No Thyroid Disease: No Ulcer: No Past Surgical History Abdominal Surgery: No AICD: No Arteriovenous Shunt: No Cardiac Surgery: No Ear Surgery: No Endocrine Surgery: No Eye Surgery: No Genitourinary Surgery: No Gynecologic Surgery: No Insulin Pump: No Joint Replacement: No Neurologic Surgery: No Oral Surgery: No Pacemaker: No Thoracic Surgery: No Other Surgery: Yes Social History Alcohol Use: No Tobacco Use: No Substance Use: No Allergies-Medications (Allergen,Severity, Reaction): Coded Allergies: No Known Allergies (Unverified Allergy, Unknown, 12/31/17) Reported Meds & Prescriptions Reported Meds & Active Scripts Active Flagyl (Metronidazole) 500 Mg Tab 500 Mg PO Q8HR Lisinopril 5 Mg Tab 10 Mg PO DAILY Norvasc (Amlodipine Besylate) 5 Mg Tab 10 Mg PO DAILY 30 Days Plavix (Clopidogrel Bisulfate) 75 Mg Tab 75 Mg PO DAILY 30 Days Reported Simvastatin 20 Mg Tab 20 Mg PO DAILY Multiple Vitamin 1 Tab 1 Tab PO DAILY Doxazosin (Doxazosin Mesylate) 4 Mg Tab 4 Mg PO HS Review of Systems ROS Limitations: Poor Historian Except as stated in HPI: all other systems reviewed are Neg HENT: No: Headaches, Neck Pain Cardiovascular: No: Chest Pain or Discomfort Respiratory: No: Shortness of Breath Gastrointestinal: No: Nausea, Vomiting, Abdominal Pain Musculoskeletal: No: Weakness Neurologic: Positive: Other (History of dementia per EMS), No: Dizziness, Focal Abnormalities Physical Exam Narrative GENERAL: Awake, alert, pleasant 87-year-old male who appears his stated age and is in no acute respiratory distress. SKIN: Focused skin assessment warm/dry. HEAD: The patient has a 2 cm stellate laceration to the mid frontal forehead just within the hairline. EYES: Pupils equal and round. 3 mm bilateral and reactive. EOMs are intact. ENT: Scarring noted over the nasal bridge from previous surgery. NECK: Trachea midline. No JVD. No tenderness of the cervical vertebrae. CARDIOVASCULAR: Regular rate and rhythm. No murmur appreciated. RESPIRATORY: No accessory muscle use. Clear to auscultation. Breath sounds equal bilaterally. GASTROINTESTINAL: Abdomen soft, non-tender, nondistended. No rebound tenderness. MUSCULOSKELETAL: No obvious deformities. No clubbing. No cyanosis. No edema. NEUROLOGICAL: Awake and alert. No obvious cranial nerve deficits. Motor grossly within normal limits. Normal speech. Moves all 4 extremities. Oriented to name but not the month, year, or senior piping designer. Back: No tenderness over the thoracic or lumbar vertebrae. PSYCHIATRIC: Appears demented, but pleasant. Data Data Last Documented VS Vital Signs Date Time Temp Pulse Resp B/P (MAP) Pulse Ox O2 Delivery O2 Flow Rate FiO2 01/21/18 03:12 98.0 87 20 180/75 (110) [address] Brain W/O Iv Contrast(Rout) (01/21/18 ) Tetanus/Diphtheria Tox Adult (Tetanus/Di (01/21/18 03:15) MDM Medical Decision Making Medical Screen Exam Complete: Yes Emergency Medical Condition: Yes Medical Record Reviewed: Yes Interpretation(s) Last Impressions Head CT 01/21/18 0000 Signed Impressions: Service Date/Time: Sunday, January 21, 2018 03:22 - CONCLUSION: 1. No acute findings in the brain. 2. Hypoattenuation in the central chrissy and medial thalami, stable from recent neuroimaging studies. Pablo Mcclure MD Differential Diagnosis Differential diagnosis includes closed head injury, skull fracture, intracranial hemorrhage, subdural hemorrhage, subarachnoid hemorrhage, laceration, contusion, hematoma, abrasion. Narrative Course CT of the brain was obtained. Patient's tetanus shot was updated. The patient' s laceration was repaired by Bhargav Doan PA-C, please refer to the procedure note. CT the brain reveals no acute findings. The patient is stable for transfer back to the jail. Diagnosis Primary Impression: Closed head injury Qualified Codes: S09.90XA - Unspecified injury of head, initial encounter Additional Impression: Laceration of forehead Qualified Codes: S01.81XA - Laceration without foreign body of other part of head, initial encounter Additional Instructions: Dermabond instructions. Please provide the patient a copy of his CT results at discharge back to the jail. Return if symptoms worsen or progress. Med/Other Pt SpecificInfo: No Change to Meds Disposition: 03 DISCHARGE TO SNF (Discharge back to jail) Condition: Stable Shaheen Washington MD Jan 21, 2018 03:20
--- NOTE | 2018-01-21 03:41 | RADRPT ---
EXAM DATE/TIME: 01/21/2018 03:22 [facility] COMPARISON: MRI BRAIN W/O CONTRAST, January 12, 2018, 9:42. MRI BRAIN W/O CONTRAST, January 02, 2018, 8:32. CT BRAI N W/O CONTRAST, January 10, 2018, 19:28. INDICATIONS : Trauma; fall. Forehead contusion. RADIATION DOSE: 56.35 CTDIvol (mGy) MEDICAL HISTORY : Hypertension. Cardiovascular disease SURGICAL HISTORY : None. ENCOUNTER: Initial ACUITY: 1 day PAIN SCALE: 5/10 LOCATION: cranial TECHNIQUE: Multiple contiguous axial images were obtained of the head. Using automated exposure control and adj ustment of the mA and/or kV according to patient size, radiation dose was kept as low as reasonably a chievable to obtain optimal diagnostic quality images. DICOM format image data is available electro nically for review and comparison. FINDINGS: Recent neuroimaging studies had demonstrated signal abnormalities in the mid chrissy and bilateral media l thalami. There is hypoattenuation in the medial thalami and left thalamus and central chrissy on toda y's examination, similar in distribution to prior. There is moderate central and cortical atrophy, s table. No acute findings seen. No acute blood products and no extra-axial fluid collections. Wide windows for bony detail demonstrate the calvarium to be intact. CONCLUSION: 1. No acute findings in the brain. 2. Hypoattenuation in the central chrissy and medial thalami, stable from recent neuroimaging studies. Pablo Mcclure MD on January 21, 2018 at 3:34 Board Certified Radiologist. This report was verified electronically.
--- NOTE | 2018-01-21 03:45 | PD ---
Physical Exam Date Seen by Provider: Jan 21, 2018 Time Seen by Provider: 03:43 Narrative Skin: Patient has a 2 cm laceration to the anterior hairline. No bony step-off. Data Data Last Documented VS Vital Signs Date Time Temp Pulse Resp B/P (MAP) Pulse Ox O2 Delivery O2 Flow Rate FiO2 01/21/18 03:12 98.0 87 20 180/75 (110) [address] Brain W/O Iv Contrast(Rout) (01/21/18 ) Tetanus/Diphtheria Tox Adult (Tetanus/Di (01/21/18 03:15) MDM Medical Record Reviewed: Yes Supervised Visit with DOMINIC: Yes Differential Diagnosis . Narrative Course Patient's wound is closed with Dermabond Procedures Procedure Narrative LACERATION LOCATION: Anterior forehead LENGTH: 2 cm NUMBER OF STITCHES/PABLITO: Not applicable REPAIR: The area of the laceration was prepped with Betadine and sterilely draped. The wound was copiously irrigated and explored without evidence of foreign body, tendon injury or neurovascular injury. The wound was closed using Dermabond. This was a simple single layer repair. The patient was advised to keep the dressing clean and dry. Patient tolerated the procedure well. Additional Instruction: Rest. Ice pack tonight. Tylenol for pain. Dermabond instructions. Sunscreen and mederma for 6 months. Return to the ER for any problems. Condition: Stable Bhargav Carpio Jan 21, 2018 03:45
[2018-01-21 08:45] VITALS: BP 144/78
== END 2018-01-21 08:46 ==
LOC: NEPC 03:02
DX: S01.81XA Laceration without foreign body of other part of head, initial encounter (principal); E78.00 Pure hypercholesterolemia, unspecified; I10 Essential (primary) hypertension; F03.90 Unspecified dementia, unspecified severity, without behavioral disturbance, psychotic disturbance, mood disturbance, and anxiety; W01.0XXA Fall on same level from slipping, tripping and stumbling without subsequent striking against object, initial encounter; Y92.129 Unspecified place in nursing home as the place of occurrence of the external cause; Z23 Encounter for immunization
CPT/HCPCS: 12011; 70450; 90471; 90714